=== PATIENT | male | born 1965 | race Caucasian/White ===

== ENCOUNTER 2016-08-31 12:44 | Inpatient (IN) | payer OTHER ==
[~2016-08-31] VITALS: Ht 180.3 cm; Wt 79.5 kg
[2016-08-31] VITALS (8 sets, daily range): BP systolic 124–134; BP diastolic 73–87; PULSE 96–124; RESP 16; TEMP 99.2–99.6; O2SAT 98–100
[~2016-08-31 12:44] MED LIST: ONDANSETRON HCL 4 MG/2 ML VIAL IV PUSH ONE; PHENYLEPH/NS 1000 MCG/10 ML SYR IV ONE; PROPOFOL 200 MG/20 ML AMP IV ONE
[2016-08-31] MEDS ORDERED: SODIUM CHLOR 0.9% 1000 ML INJ 1,000 ML IV SCH (13:08)
[2016-08-31] MEDS ORDERED: SODIUM CHLORIDE 0.9% FLUSH 5 ML FLUSH IVF PRN (13:15)
[2016-08-31] MEDS ORDERED: VANCOMYCIN INJ 1,000 MG in SODIUM CHLOR 0.9% 250 ML INJ 250 ML IV ONE (13:15)
[2016-08-31] MEDS ORDERED: SODIUM CHLOR 0.9% 1000 ML INJ 1,000 ML IV ONE ×2 (13:15→14:15)
[2016-08-31] MEDS ORDERED: PIPERACIL-TAZO 4.5 GM PREMIX 100 ML IV ONE (13:15)
[2016-08-31] MEDS ORDERED: ONDANSETRON HCL 4 MG/2 ML VIAL IVP ONE (13:15)
[2016-08-31 13:28] LABS: AUTOMATED NEUTROPHIL # 25.1 TH/MM3 (1.8-7.7); BASOPHIL # 0.1 TH/MM3 (0-0.2); BASOPHIL % 0.4 % (0.0-2.0); HEMATOCRIT 33.4 % (39.0-51.0); LYMPH % 1.8 % (9.0-44.0); LYMPHOCYTE # 0.5 TH/MM3 (1.0-4.8); MEAN CELL VOLUME 91.4 FL (80.0-100.0); MEAN CORPUSCULAR HEMOGLOBIN 30.5 PG (27.0-34.0); MEAN CORPUSCULAR HGB CONC 33.4 % (32.0-36.0); MONO % 6.4 % (0.0-8.0); NEUT % 91.4 % (16.0-70.0); PLATELET COUNT 223 TH/MM3 (150-450); RED BLOOD COUNT 3.66 MIL/MM3 (4.50-5.90); RED CELL DISTRIBUTION WIDTH 11.5 % (11.6-17.2); WHITE BLOOD COUNT 27.5 TH/MM3 (4.0-11.0)
[2016-08-31 13:29] LABS: BLOOD, URINE TRACE (NEG); KETONE, URINE NEG (NEG); NITRITE,URINE NEG (NEG); PH, URINE 5.5 (5.0-8.5)
--- NOTE | 2016-08-31 13:29 | PD ---
HPI Chief Complaint: Complaint Time Seen by Provider: 13:00 Travel History International Travel<30 days: No Contact w/Intl Traveler<30days: No Traveled to known affect area: No History of Present Illness HPI The patient is a 51-year-old male who presents to the emergency department for nausea, vomiting, and generalized weakness. The patient states his symptoms started on with generalized body aches, nausea, and vomiting. The patient then developed scrotal pain yesterday with swelling of the scrotum and tenderness underlying the scrotum. The patient does complain of subjective fevers with intermittent chills and sweats. The patient states he 's had a decreased appetite over the last several days secondary to his persistent nausea and vomiting. The patient does note a previous history of right inguinal herniorrhaphy, however, denies other abdominal surgeries. The patient denies any history of diabetes. Symptoms are moderate, there are no current alleviating or exacerbating factors. The patient denies any company dysuria, frequency, or urgency. However, he does complain of dark-colored urine. The patient's primary physician is Dr. Hartmann. [facility] Past Medical History Medical History: Denies Significant Hx Past Surgical History Narrative Surgical Right herniorrhaphy Social History Tobacco Use: No (quit 3 weeks ago) Allergies-Medications (Allergen,Severity, Reaction): Coded Allergies: No Known Allergies (Unverified , 08/31/16) Review of Systems Except as stated in HPI: all other systems reviewed are Neg General / Constitutional: Positive: Fever, Chills Respiratory: Positive: Cough Gastrointestinal: Positive: Nausea, Vomiting, Abdominal Pain Genitourinary: Positive: Other (dark-colored urine, scrotal pain 2 days), No : Urgency, Frequency, Dysuria Musculoskeletal: Positive: Weakness Skin: Positive Other (scrotal swelling) Neurologic: Positive: Weakness Physical Exam Narrative GENERAL: Awake, alert, 51-year-old male appears his stated age and mildly toxic. SKIN: Warm and dry. HEAD: Atraumatic. Normocephalic. EYES: Pupils equal and round. No scleral icterus. No injection or drainage. ENT: No nasal bleeding or discharge. Dry mucous membranes. NECK: Trachea midline. No JVD. CARDIOVASCULAR: Regular, tachycardic with a heart rate of 115. RESPIRATORY: No accessory muscle use. Clear to auscultation. Breath sounds equal bilaterally. GASTROINTESTINAL: Abdomen soft, well-healed scar right inguinal canal. No guarding. Genitourinary: Uncircumcised phallus, no drainage at the meatus. Scrotum is edematous with erythema and violaceous-colored lesions over the inferior aspect of the scrotum extending into the perineum with significant tenderness, questionable crepitus. MUSCULOSKELETAL: No obvious deformities. No clubbing. No cyanosis. No edema. NEUROLOGICAL: Awake and alert. No obvious cranial nerve deficits. Motor grossly within normal limits. Normal speech. PSYCHIATRIC: Appropriate mood and affect; insight and judgment normal. Data Data Last Documented VS Vital Signs Date Time Temp Pulse Resp B/P Pulse Ox O2 Delivery O2 Flow Rate FiO2 08/31/16 13:00 119 16 08/31/16 13:00 98 Room Air 08/31/16 12:45 99.6 124/73 Orders Complete Blood Count With Diff (08/31/16 13:08) Comprehensive Metabolic Panel (08/31/16 13:08) Lactic Acid (08/31/16 13:08) Prothrombin Time / Inr (Pt) (08/31/16 13:08) Act Partial Throm Time (Ptt) (08/31/16 13:08) Urinalysis - C+S If Indicated (08/31/16 13:08) Ct Abd/Pel W Iv Contrast(Rout) (08/31/16 13:08) Iv Access Insert/Monitor (08/31/16 13:08) Ecg Monitoring (08/31/16 13:08) Oximetry (08/31/16 13:08) Ondansetron Inj (Zofran Inj) (08/31/16 13:15) Sodium Chlor 0.9% 1000 Ml Inj (Ns 1000 M (08/31/16 13:08) Sodium Chloride 0.9% Flush (Ns Flush) (08/31/16 13:15) Electrocardiogram (08/31/16 13:08) Sodium Chlor 0.9% 1000 Ml Inj (Ns 1000 M (08/31/16 13:15) Piperacil-Tazo 4.5 Gm Premix (Zosyn 4.5 (08/31/16 13:15) Vancomycin Inj (Vancomycin Inj) (08/31/16 13:15) Creatine Kinase (Cpk) (08/31/16 13:08) Blood Culture (08/31/16 13:23) Iohexol 350 Inj (Omnipaque 350 Inj) (08/31/16 13:47) Ns (Bolus) Inj (08/31/16 14:15) Labs Laboratory Tests Test 08/31/16 08/31/16 13:15 13:20 White Blood Count 27.5 TH/MM3 Red Blood Count 3.66 MIL/MM3 Hemoglobin 11.1 GM/DL Hematocrit 33.4 % Mean Corpuscular Volume 91.4 FL Mean Corpuscular Hemoglobin 30.5 PG Mean Corpuscular Hemoglobin 33.4 % Concent Red Cell Distribution Width 11.5 % Platelet Count 223 TH/MM3 Mean Platelet Volume 8.3 FL Neutrophils (%) (Auto) 91.4 % Lymphocytes (%) (Auto) 1.8 % Monocytes (%) (Auto) 6.4 % Eosinophils (%) (Auto) 0.0 % Basophils (%) (Auto) 0.4 % Neutrophils # (Auto) 25.1 TH/MM3 Lymphocytes # (Auto) 0.5 TH/MM3 Monocytes # (Auto) 1.8 TH/MM3 Eosinophils # (Auto) 0.0 TH/MM3 Basophils # (Auto) 0.1 TH/MM3 CBC Comment DIFF FINAL Differential Comment Prothrombin Time 11.4 SEC Prothromb Time International 1.0 RATIO Ratio Activated Partial 32.0 SEC Thromboplast Time Sodium Level 133 MEQ/L Potassium Level 3.5 MEQ/L Chloride Level 98 MEQ/L Carbon Dioxide Level 20.5 MEQ/L Anion Gap 15 MEQ/L Blood Urea Nitrogen 20 MG/DL Creatinine 1.70 MG/DL Estimat Glomerular Filtration 43 ML/MIN Rate Random Glucose 474 MG/DL Lactic Acid Level 3.4 mmol/L Calcium Level 8.2 MG/DL Total Bilirubin 2.7 MG/DL Aspartate Amino Transf 5 U/L (AST/SGOT) Alanine Aminotransferase 11 U/L (ALT/SGPT) Alkaline Phosphatase 111 U/L Total Creatine Kinase 24 U/L Total Protein 6.7 GM/DL Albumin 2.4 GM/DL Urine Collection Type CLEAN CATCH Urine Color YELLOW Urine Turbidity CLEAR Urine pH 5.5 Urine Specific [place] 1.032 Urine Protein 100 mg/dL Urine Glucose (UA) 1000 OR GREATER mg/dL Urine Ketones NEG mg/dL Urine Occult Blood TRACE Urine Nitrite NEG Urine Bilirubin NEG Urine Leukocyte Esterase NEG Urine RBC 0-3 /hpf Urine WBC 0-2 /hpf Urine Squamous Epithelial 0-5 /hpf Cells Urine Bacteria FEW /hpf Microscopic Urinalysis Comment CULT NOT INDICATED Urine Collection Time 13:20 [facility] Medical Decision Making Medical Screen Exam Complete: Yes Emergency Medical Condition: Yes Medical Record Reviewed: Yes Interpretation(s) EKG reveals sinus tachycardia with a rate of 114. Q wave noted in lead 3. RSR prime V1. Nonspecific T wave changes. Laboratory Tests Test 08/31/16 08/31/16 13:15 13:20 White Blood Count 27.5 TH/MM3 Red Blood Count 3.66 MIL/MM3 Hemoglobin 11.1 GM/DL Hematocrit 33.4 % Mean Corpuscular Volume 91.4 FL Mean Corpuscular Hemoglobin 30.5 PG Mean Corpuscular Hemoglobin 33.4 % Concent Red Cell Distribution Width 11.5 % Platelet Count 223 TH/MM3 Mean Platelet Volume 8.3 FL Neutrophils (%) (Auto) 91.4 % Lymphocytes (%) (Auto) 1.8 % Monocytes (%) (Auto) 6.4 % Eosinophils (%) (Auto) 0.0 % Basophils (%) (Auto) 0.4 % Neutrophils # (Auto) 25.1 TH/MM3 Lymphocytes # (Auto) 0.5 TH/MM3 Monocytes # (Auto) 1.8 TH/MM3 Eosinophils # (Auto) 0.0 TH/MM3 Basophils # (Auto) 0.1 TH/MM3 CBC Comment DIFF FINAL Differential Comment Prothrombin Time 11.4 SEC Prothromb Time International 1.0 RATIO Ratio Activated Partial 32.0 SEC Thromboplast Time Sodium Level 133 MEQ/L Potassium Level 3.5 MEQ/L Chloride Level 98 MEQ/L Carbon Dioxide Level 20.5 MEQ/L Anion Gap 15 MEQ/L Blood Urea Nitrogen 20 MG/DL Creatinine 1.70 MG/DL Estimat Glomerular Filtration 43 ML/MIN Rate Random Glucose 474 MG/DL Lactic Acid Level 3.4 mmol/L Calcium Level 8.2 MG/DL Total Bilirubin 2.7 MG/DL Aspartate Amino Transf 5 U/L (AST/SGOT) Alanine Aminotransferase 11 U/L (ALT/SGPT) Alkaline Phosphatase 111 U/L Total Creatine Kinase 24 U/L Total Protein 6.7 GM/DL Albumin 2.4 GM/DL Urine Collection Type CLEAN CATCH Urine Color YELLOW Urine Turbidity CLEAR Urine pH 5.5 Urine Specific [place] 1.032 Urine Protein 100 mg/dL Urine Glucose (UA) 1000 OR GREATER mg/dL Urine Ketones NEG mg/dL Urine Occult Blood TRACE Urine Nitrite NEG Urine Bilirubin NEG Urine Leukocyte Esterase NEG Urine RBC 0-3 /hpf Urine WBC 0-2 /hpf Urine Squamous Epithelial 0-5 /hpf Cells Urine Bacteria FEW /hpf Microscopic Urinalysis Comment CULT NOT INDICATED Urine Collection Time 13:20 CT the abdomen and pelvis reveals significant air within the scrotum was soft tissue inflammation skin thickening. Charlie's necrotizing fasciitis can have this appearance. No evidence of bowel or significant inguinal hernia. Differential Diagnosis Differential diagnosis includes necrotizing fasciitis, Charlie's disease, abscess, cellulitis, sepsis, severe sepsis, acute renal failure, dehydration, influenza. Narrative Course IV was established, labs are drawn and sent, and the patient was placed on cardiac telemetry monitoring and continuous pulse oximetry monitoring. Stat CT of the abdomen/pelvis with IV contrast was ordered to evaluate for necrotizing fasciitis/Charlie's disease. Blood cultures and lactic gas were sent to lab and the patient was administered Zosyn and vancomycin. The patient was also administered 2 L of IV fluids. EKG was ordered and interpreted. The patient's CT of the abdomen and pelvis reveals significant air within the scrotum was soft tissue inflammation and skin thickening. Charlie's necrotizing fasciitis can have this appearance. No evidence of bowel or significant inguinal hernia. The patient's white count is elevated greater than 27, lactic acid is elevated at 3.4. I discussed the patient with the on-call urologist who is aware of the patient requests transfer to [facility]. A second call was placed to the urology service and a call was placed to the on-call general surgeon as there is air dissecting of the left inguinal canal. The patient has received 3 L of IV fluids, Zosyn, and vancomycin. A call was placed to the on- call information coder for admission. The patient will need to be transferred to [facility] and admission to [facility]. I discussed the patient with Dr. Ordoñez who agrees with admission to the intensive care unit. Critical Care Narrative Aggregate critical care time was 40 minutes. Time to perform other separately billable procedures was not included in the critical care time. My time did not include minutes spent treating any other patients simultaneously or on activities that did not directly contribute to the patient's treatment. The services I provided to this patient were to treat and/or prevent clinically significant deterioration that could result in: Necrotizing fasciitis, severe sepsis, septic shock, . I provided critical care services requiring my management, as noted below: Chart data review, documentation time, medication orders and management, vital sign assessments/reviewing monitor data, ordering and reviewing lab tests, ordering and interpreting/reviewing x-rays and diagnostic studies, care of the patient and discussion of the patient with the admitting physicians. Sepsis Criteria SIRS Criteria (2 or more): Heart rate over 90, WBC > 69656, < 4000 or > 10% bands Physician Communication Physician Communication I discussed the patient with Dr. Ordoñez who agrees with admission. 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
[2016-08-31 13:32] LABS: HEMO FLAGS DIFF FINAL
[2016-08-31 13:36] LABS: CHLORIDE 98 MEQ/L (98-107); POTASSIUM 3.5 MEQ/L (3.5-5.1); SODIUM (NA) 133 MEQ/L (136-145)
[2016-08-31 13:36] LABS: GLUCOSE,URINE 1000 OR GREATER mg/dL (NEG)
[2016-08-31 13:37] LABS: BACTERIA, URINE FEW /hpf; COMMENT (UR) CULT NOT INDICATED; CULTURE IF INDICATED CULT NOT INDICATED; METHOD OF COLLECTION CLEAN CATCH; RBC, URINE 0-3 /hpf (0-3); SQUAMOUS EPITHELIAL CELL URINE 0-5 /hpf (0-5); URINE COLOR YELLOW (YELLW/STRAW); WBC, URINE 0-2 /hpf (0-5)
[2016-08-31 13:40] LABS: ANION GAP 15 MEQ/L (5-15); BICARBONATE 20.5 MEQ/L (21.0-32.0); PROTHROMBIN TIME - PATIENT 11.4 SEC (9.8-11.6)
[2016-08-31 13:44] LABS: ALT (GPT) 11 U/L (12-78); AST (GOT) 5 U/L (15-37); BLOOD UREA NITROGEN 20 MG/DL (7-18); GLOMERULAR FILTRATION RATE 43 ML/MIN (>89)
[2016-08-31] MEDS ORDERED: IOHEXOL 350 MG/ML 10 ML VIAL (for RAD DIAG) IV ONE (13:47)
[2016-08-31 13:49] LABS: ALKALINE PHOSPHATASE 111 U/L (45-117); TOTAL BILIRUBIN ADULT 2.7 MG/DL (0.2-1.0)
[2016-08-31 13:54] LABS: CREATINE KINASE 24 U/L (39-308)
--- NOTE | 2016-08-31 14:02 | RADHPO ---
EXAM DATE/TIME: 08/31/2016 13:36 [facility] COMPARISON: No previous studies available for comparison. INDICATIONS: Pain. IV CONTRAST: 75 cc Omnipaque 350 (iohexol) IV ORAL CONTRAST: No oral contrast ingested. RADIATION DOSE: 11.88 CTDIvol (mGy) MEDICAL HISTORY: None SURGICAL HISTORY: None. ENCOUNTER: Initial ACUITY: 2 days PAIN SCALE: 6/10 LOCATION: Bilateral lower quadrant TECHNIQUE: Volumetric scanning of the abdomen and pelvis was performed. Using automated exposure control and ad justment of the mA and/or kV according to patient size, radiation dose was kept as low as reasonably achievable to obtain optimal diagnostic quality images. FINDINGS: CT of the abdomen and pelvis demonstrates there is significant air within the scrotum with air dissec ting up the left inguinal canal. There is soft tissue swelling and inflammation of the scrotum with marked skin thickening. Charlie's can have this appearance. I do not see any evidence of significa nt inguinal canal hernia. There is certainly no bowel within the inguinal canals. There is calcified gallstone noted in gallbladder. The liver, spleen, adrenal glands, kidneys and pa ncreas are unremarkable. CONCLUSION: Significant air within the scrotum with soft tissue inflammation and skin thickening. Charlie's nec rotizing fasciitis can have this appearance. I do not see any evidence of bowel or significant ingui nal hernia. Triston Euceda MD on August 31, 2016 at 13:55 Board Certified Radiologist. This report was verified electronically.
[2016-08-31] MEDS ORDERED: POTASSIUM CHLOR 40 MEQ PREMIX 100 ML IV PRN (14:30)
[2016-08-31] MEDS ORDERED: POTASSIUM PHOSPHATE MONOBASIC 500 MG TAB PO PRN (14:30)
[2016-08-31] MEDS ORDERED: MISCELLANEOUS NURSING INFORMATION XX SCH (14:30)
[2016-08-31] MEDS ORDERED: Vancomycin Consult Pharmacy 1 EA OTHER SCH (14:30)
[2016-08-31] MEDS ORDERED: CLINDAMYCIN INJ 900 MG in SODIUM CHLORIDE 0.9% INJ 100 ML IV ONE (14:30)
[2016-08-31] MEDS ORDERED: MAGNESIUM SULFATE INJ 2 GM in SODIUM CHLORIDE 0.9% INJ 96 ML IV PRN (14:30)
[2016-08-31] MEDS ORDERED: SODIUM PHOSPHATE INJ 30 MMOL in SODIUM CHLOR 0.9% 250 ML INJ 240 ML IV PRN (14:30)
[2016-08-31] MEDS ORDERED: MAGNESIUM OXIDE 400 MG TAB PO PRN (14:30)
[2016-08-31] MEDS ORDERED: POTASSIUM CHLOR 20 MEQ PREMIX 100 ML IV PRN ×2 (14:30)
[2016-08-31] MEDS ORDERED: POTASSIUM CL 40 MEQ/30 ML LIQ UDC PO/TUBE PRN ×2 (14:30)
[2016-08-31] MEDS ORDERED: MAGNESIUM SULFATE INJ 4 GM in SODIUM CHLORIDE 0.9% INJ 92 ML IV PRN (14:30)
[2016-08-31] MEDS ORDERED: POTASSIUM PHOSPHATE INJ 30 MMOL in SODIUM CHLOR 0.9% 250 ML INJ 250 ML IV PRN (14:30)
[2016-08-31] MEDS ORDERED: POTASSIUM PHOSPHATE MONOBASIC 500 MG TAB PO/TUBE PRN (14:30)
[2016-08-31] MEDS ORDERED: CHLORHEXIDINE GLUCONATE 2 % 1 PACK (2 CLOTHS) TOP PRN (14:30)
[2016-08-31] MEDS ORDERED: RESP: ALBUTEROL 2.5 MG/IPRATROPIUM 0.5 MG NEB (PRN) INH (14:30)
[2016-08-31] MEDS ORDERED: DEXTROSE 50% IN WATER 50 ML VIAL(D50) IV PUSH PRN (14:30)
[2016-08-31] MEDS ORDERED: HYDROmorphone HCL PF 1 MG/ML VIAL IV PRN (15:00)
[2016-08-31] MEDS: SODIUM CHLORIDE 0.9% FLUSH 5 ML FLUSH IV FLUSH PRN (15:33)
[2016-08-31] MEDS: LACTATED RINGER'S 1000 ML INJ 1,000 ML IV SCH ×2 (15:38→22:28)
[2016-08-31] MEDS: INSULIN NovoLIN REGULAR SUPPLEMENTAL SCALE SQ SCH ×3 (17:14→23:44)
[2016-08-31] MEDS: PIPERACIL-TAZO 4.5 GM PREMIX 100 ML IV SCH ×2 (17:14→23:44)
[2016-08-31] MEDS ORDERED: MIDAZOLAM HCL 2 MG/2 ML VIAL IV PUSH ONE (17:15)
[2016-08-31] MEDS ORDERED: MIDAZOLAM HCL 5 MG/ML VIAL (1 ML) ONE (17:17)
--- NOTE | 2016-08-31 17:20 | HHI.HP ---
HPI Service Critical Care Medicine Primary Care Physician Non-Staff Admission Diagnosis Charlie's necrotizing fasciitis, sepsis Diagnosis: Chief Complaint: groin swelling Travel History International Travel<30 Days: No Contact w/Intl Traveler <30 Da: No Traveled to Known Affected Are: No History of Present Illness This is a 51-year-old male with an unremarkable past medical history who presents with a three-day of flulike symptoms and scrotal swelling who presented to the emergency department at [facility] today. He states it is painful and red. He has not had anything draining from it. In the emergency department they did a CT abdomen and pelvis with IV contrast which demonstrated significant soft tissue infection tracking up the inguinal canal, concern for necrotizing soft tissue infection. He was tachycardic and hypotensive initially requiring IV fluid resuscitation. He was given vancomycin, Zosyn, clindamycin. Urology and general surgery consult addition he is emergently transferred to [facility] for operative debridement of probable Charlie's gangrene. When I evaluated the patient he states his pain is moderately controlled and 3 out of 10 arrest with 8 of 10 with activity. He denies chest pain shortness of breath. He has been nothing by mouth for greater than 24 hours. He has no history of problems under anesthesia. He endorses poor dentition, but states that none of these teeth are loose. He can walk up 2 flights of stairs without being winded. Review of Systems Constitutional: COMPLAINS OF: Fever, Chills, DENIES: Diaphoretic episodes, Fatigue Respiratory: DENIES: Cough, Sputum production, Shortness of breath Cardiovascular: DENIES: Chest pain, Syncope, Dyspnea on Exertion, Lower Extremity Edema Gastrointestinal: DENIES: Abdominal pain, Constipation, Diarrhea, Nausea, Vomiting Neurologic: DENIES: Headache Past Family Social History Allergies: Coded Allergies: No Known Allergies (Unverified , 08/31/16) Past Medical History Patient has no reported past medical history. Past Surgical History Hernia operation a few years ago Reported Medications Recent intermittent ibuprofen use for his scrotal pain. Otherwise the patient takes no medication. Active Ordered Medications See MAR Family History Mother had diabetes Social History Quit smoking 3 weeks ago, one drink per week, denies drug abuse Physical Exam Vital Signs Vital Signs Date Time Temp Pulse Resp B/P Pulse Ox O2 Delivery O2 Flow Rate FiO2 08/31/16 16:01 107 16 127/77 100 08/31/16 15:00 106 16 134/80 100 Room Air 08/31/16 14:09 108 16 132/87 100 Room Air 08/31/16 14:00 108 16 08/31/16 13:00 99.2 114 16 124/75 98 Room Air 08/31/16 13:00 119 16 08/31/16 13:00 16 98 Room Air 08/31/16 12:45 99.6 124 16 124/73 99 Physical Exam GENERAL: Middle-aged male, lying in bed HEENT: Normocephalic. Atraumatic. Pupils equal, reactive, round, conjugate. Mucous membranes are dry NECK:. Trachea is midline. There is no JVD. CHEST: Equal chest rise. Clear to auscultation. SPO2 91% on room air. CARDIOVASCULAR: Tachycardic rate, regular rhythm. No appreciable murmurs. ABDOMEN: Soft, nontender, nondistended. No guarding. : significant scrotal edema with erythema, very tender to palpation, indurated. MUSCULOSKELETAL: no peripheral edema. distal pulses 2+ NEUROLOGICAL: RASS 0. no gross focal motor or sensory deficits Laboratory Laboratory Tests Test 08/31/16 08/31/16 13:15 13:20 White Blood Count 27.5 Red Blood Count 3.66 Hemoglobin 11.1 Hematocrit 33.4 Mean Corpuscular Volume 91.4 Mean Corpuscular Hemoglobin 30.5 Mean Corpuscular Hemoglobin 33.4 Concent Red Cell Distribution Width 11.5 Platelet Count 223 Mean Platelet Volume 8.3 Neutrophils (%) (Auto) 91.4 Lymphocytes (%) (Auto) 1.8 Monocytes (%) (Auto) 6.4 Eosinophils (%) (Auto) 0.0 Basophils (%) (Auto) 0.4 Neutrophils # (Auto) 25.1 Lymphocytes # (Auto) 0.5 Monocytes # (Auto) 1.8 Eosinophils # (Auto) 0.0 Basophils # (Auto) 0.1 CBC Comment DIFF FINAL Differential Comment Prothrombin Time 11.4 Prothromb Time International 1.0 Ratio Activated Partial 32.0 Thromboplast Time Sodium Level 133 Potassium Level 3.5 Chloride Level 98 Carbon Dioxide Level 20.5 Anion Gap 15 Blood Urea Nitrogen 20 Creatinine 1.70 Estimat Glomerular Filtration 43 Rate Random Glucose 474 Lactic Acid Level 3.4 Calcium Level 8.2 Total Bilirubin 2.7 Aspartate Amino Transf 5 (AST/SGOT) Alanine Aminotransferase 11 (ALT/SGPT) Alkaline Phosphatase 111 Total Creatine Kinase 24 Total Protein 6.7 Albumin 2.4 Urine Collection Type CLEAN CATCH Urine Color YELLOW Urine Turbidity CLEAR Urine pH 5.5 Urine Specific [place] 1.032 Urine Protein 100 Urine Glucose (UA) 1000 OR GREATER Urine Ketones NEG Urine Occult Blood TRACE Urine Nitrite NEG Urine Bilirubin NEG Urine Leukocyte Esterase NEG Urine RBC 0-3 Urine WBC 0-2 Urine Squamous Epithelial 0-5 Cells Urine Bacteria FEW Microscopic Urinalysis Comment CULT NOT INDICATED Urine Collection Time 13:20 Date/Time Procedure Status Source Growth 08/31/16 13:15 Aerobic Blood Culture Received Blood Peripheral Pending 08/31/16 13:15 Anaerobic Blood Culture Received Blood Peripheral Pending Result Diagram: 08/31/16 1315 08/31/16 1315 Imaging Last 24 hours Impressions Abdomen/Pelvis CT 08/31/16 1308 Signed Impressions: Service Date/Time: Wednesday, August 31, 2016 13:36 - CONCLUSION: Significant air within the scrotum with soft tissue inflammation and skin thickening. Charlie's necrotizing fasciitis can have this appearance. I do not see any evidence of bowel or significant inguinal hernia. Triston Euceda MD Assessment and Plan Assessment and Plan Assessment: This is a 51-year-old male with likely Charlie's gangrene and probably new diagnosis of diabetes, who presents in severe sepsis. He will go for operative debridement of his groin. He is likely to become much more critically ill than he already is after the operation, and will thus require arterial and central venous access to safely manage him. Plan by systems: Neurologic: Acute groin pain Dilaudid as needed for pain Respiratory: Atelectasis Wean oxygen by nasal cannula for goal SPO2 greater than 90% May remain intubated after the OR depending on his hemodynamics Incentive spirometer to bedside Head of bed at 30 Cardiovascular: Severe sepsis Continue IV fluids LR at 150cc/hr Renal: Acute kidney injury Charlie's Gangrene --likely prerenal from sepsis --ivf as above. -- will hold off on placing blankenship catheter, will need one, but will have urology place this during operative intervention -- Strict I/Os --consult Urology FEN/GI: Nothing by mouth for pending operation ICU electrolyte protocol Daily BMP Heme/ID: Charlie's Gangrene --daily CBC --Vanc with pharmacy dosing --Zosyn 4.5gm iv q6h --Clindamycin for toxin production -- ID consult --type and screen for OR Endocrine: Diabetes -- SSI, high scale, q4h --Hgb A1C Prophylaxis: GI Prophylaxis Protonix 40 mg IV every 24 hours DVT Prophylaxis -- SCDs Holding pharmacologic DVT prophylaxis in the setting of pending operation. We' ll plan to restart postop Lines: We'll place arterial line We'll place central line Dispo: Admit to the ICU. He is going to remain critically ill for some time. Code Status Full Code Ruddy Herbert MD Aug 31, 2016 17:20
[2016-08-31] MEDS ORDERED: NOREPINEPHRINE-DEXTROSE DRIP 250 ML IV ONE (18:15)
--- NOTE | 2016-08-31 18:35 | PD.PROCEDR ---
Procedure Note Procedure Procedure: Arterial Line Placement Left radial arterial line Diagnosis:Charlie's gangrene Indications: Need for beat to beat hemodynamic monitoring Consent: Written consent was obtained Description of the Procedure: The left wrist was prepped and draped sterilely. 1% lidocaine was used for local anesthesia. The pulse was located and a needle was advanced into the artery. A 20 gauge, 12 cm catheter was advanced into the artery using a modified Seldinger technique. The catheter was sutured to the skin and a sterile dressing was applied. The catheter was connected to a pressure transducer and an arterial waveform was noted. There were no immediate complications noted. There was minimal EBL. I personally performed the procedure. Ruddy Herbert MD Aug 31, 2016 18:35
--- NOTE | 2016-08-31 18:37 | PD.PROCEDR ---
Procedure Note Procedure Central Line Procedure Note Left IJ triple-lumen catheter Diagnosis: Charlie's gangrene Indications: Need for highly potent vasoactive substances Consent: Written consent was obtained Anesthesia: Versed 2 mg IV, fentanyl 50 g IV Description of the Procedure: The patient was placed in the supine, mild- Trendelenburg position. The area was prepped and draped sterilely. A 19g needle was inserted under negative pressure aspiration and dark venous blood was obtained. A guidewire was inserted easily without resistance. A small incision was made using a #11 blade. Using a modified Seldinger technique, the dilator and 7 Swedish, 20 cm catheter were advanced over the guidewire without resistance. All ports were aspirated and flushed, and had brisk blood return. The line was secured at 20 cm at the skin using 2-0 silk interrupted sutures. A Biopatch and Transparent sterile dressing were applied. There were no immediate complications noted. There was minimal EBL. The patient tolerated the procedure well. Ultrasound Guidance: Ultrasound guidance was used to identify the left internal jugular vein. The vascular anatomy of the left anterior neck was normal. The vessel was cannulated under direct, real-time ultrasound visualization. After placement of the guidewire, confirmation of the guidewire in the lumen of the vessel was made using ultrasound visualization, before dilation of the tract. A Chest x-ray has been ordered. I personally performed the procedure. Ruddy Herbert MD Aug 31, 2016 18:36
--- NOTE | 2016-08-31 18:58 | RADRPT ---
EXAM DATE/TIME: 08/31/2016 18:32 [facility] COMPARISON: No previous studies available for comparison. INDICATIONS : Central Line Placement MEDICAL HISTORY : None. SURGICAL HISTORY : None. ENCOUNTER: Subsequent ACUITY: 1 day PAIN SCORE: 0/10 LOCATION: Bilateral chest FINDINGS: A left internal jugular central venous catheter has been inserted and is in appropriate position. The re is no evidence of pneumothorax or acute airspace disease. The cardiomediastinal contours are unre markable. Osseous structures are intact. CONCLUSION: Left internal jugular central venous catheter in good position. No evidence of pneumothorax. Felix Caballero MD on August 31, 2016 at 18:56 Board Certified Radiologist. This report was verified electronically.
[2016-08-31] MEDS ORDERED: EPINEPHrine HCL (1:10,000) 1 MG/10 ML SYRINGE ONE (19:02)
[2016-08-31] MEDS ORDERED: LIDOCAINE HCL 2% 100 MG/5 ML SYRINGE ONE (19:02)
[2016-08-31] MEDS ORDERED: ATROPINE SULFATE 1 MG/10 ML SYRINGE ONE (19:02)
--- NOTE | 2016-08-31 20:08 | MB ---
cc: FUNMILAYO CORTES MD DATE OF SERVICE 08/31/2016 REASON FOR CONSULTATION 1. Charlie's gangrene. 2. Sepsis. HISTORY OF PRESENT ILLNESS The patient is a 51-year-old male who presented to the [facility] earlier today with a painful red scrotum with swelling for the past 3 days. It began approximately 3 days ago when he started to have some flu-like symptoms with malaise, general fatigue and upset stomach. He noticed his scrotum started to become swollen, red and painful to the point where the pain was a 10/10 and felt like a sharp stabbing pain in the bottom of his scrotum. He denies prior episodes. He denies any penile discharge or drainage from his scrotum. Once he got to the ER he was found to have a white count of 27,000 and to be acidotic. He is slightly tachycardic with a low grade fever as well. He did feel like he was having night sweats and fevers and chills at home. A CT abdomen and pelvis without contrast was then done which showed significant air in his scrotum and possibly extending up to his left inguinal region consistent with a Charlie's gangrene or necrotizing fasciitis. Urology was consulted for further evaluation. In the ER he was given vancomycin, Zosyn and clindamycin. He is also found to have a blood sugar of over 400. He denies any previous history of diabetes at the past. Denies any urinary issues as well. He says he has a strong stream, does not get up at night. He also denies dysuria, incontinence, urgency, frequency or hematuria. Denies history of kidney stones and any family history of prostate cancer. He denies flank pain, abdominal pain at this time. His pain has been controlled since receiving Dilaudid. He subsequently was transferred up to [facility] in preparation for emergent surgery. ALLERGIES NO KNOWN DRUG ALLERGIES. PAST MEDICAL HISTORY Denies any significant past medical history. PAST SURGICAL HISTORY He is status post inguinal hernia repair. HOME MEDICATIONS Ibuprofen for his scrotal pain. FAMILY HISTORY Negative for urolithiasis, negative for genitourinary malignancies. SOCIAL HISTORY Quit smoking 3 weeks ago. Denies drug abuse and has about a drink per week. REVIEW OF SYSTEMS See HPI, otherwise, a 12-point review of systems was performed, otherwise negative. PHYSICAL EXAMINATION VITAL SIGNS: His temperature was 99.2, pulse 107, BP 127/77, pulse ox 90% on 3 liters. GENERAL: In general he is alert and oriented x3. No apparent distress, pleasant, cooperative gentleman appears his stated age. HEAD: Normocephalic, atraumatic. Neck is supple. Trachea is midline. No JVD. Eyes: No scleral icterus. Extraocular muscles intact. LUNGS: Clear to auscultation bilaterally. No wheezes, rales or rhonchi. HEART: Regular rate and rhythm. No murmurs, gallops or rubs. ABDOMEN: Soft but obese, nontender, nondistended. Positive bowel sounds. No peritoneal signs. No CVA tenderness bilaterally. GENITOURINARY EXAMINATION: The penis is circumcised. His scrotum is diffusely edematous with some erythema and crepitus in the posterior portion of the scrotum. There is 3 quarter sized like necrotic areas on his scrotum consistent with necrotizing fasciitis as well as a very foul odor. RECTAL: Deferred at this time. EXTREMITIES: Nontender, no clubbing, cyanosis or edema. MUSCULOSKELETAL: Full range of motion in all four extremities. Strength 5/5. PSYCH: Normal affect. LABORATORY DATA Labs show a white count 27.5, hemoglobin 11.1, hematocrit 33.4, platelet count 223, sodium 133, potassium 3.5, chloride 98, bicarb 20.5, BUN 20, creatinine 1.70, random glucose 474, lactic acid 3.4. His urine shows greater than 1000 glucose but otherwise negative nitrate, negative leukocyte esterase with a urine pH of 5.5. IMAGING STUDIES CT of abdomen and pelvis with IV contrast images reviewed, agree with radiologist's report. He does have significant air within the scrotum which appears to be ____ with continued soft tissue swelling, inflammation of the scrotum with marked significant thickening consistent with Charlie's gangrene. ASSESSMENT/PLAN The patient is a 51-year-old male with newly diagnosed diabetes who presents with scrotal pain, swelling and redness for the last few days and was found to have necrotizing fasciitis. The plan, will keep the patient n.p.o. Will continue IV antibiotics and consult infectious disease. Will take him to the OR emergently this evening for a debridement of his scrotum. I discussed the risks, benefits, alternatives with the patient of the procedure including the risk of repeat debridement in the next 48 hours as well as the chances of him becoming ___ septic after the procedure as well as the anesthesia risks. He understood all these risks. All questions were answered. Informed consent was obtained. Funmilayo Cortes MD EMYoselin/GÉNESIS /7:21 PM /7:43 PM
[2016-08-31] MEDS ORDERED: fentaNYL CITRATE 250 MCG/5 ML AMP ONE (20:26)
[2016-08-31] MEDS: SODIUM CHLORIDE 0.9% FLUSH 5 ML FLUSH IV FLUSH SCH (21:00)
[2016-08-31] MEDS: DOCUSATE SODIUM 50 MG/SENNA 8.6 MG TAB PO SCH (21:00)
[2016-08-31] MEDS ORDERED: NALOXONE HCL 0.4 MG/ML AMP IV PRN (22:15)
[2016-08-31] MEDS ORDERED: MORPHINE SULFATE 30 MG/30 ML PCA IV SCH ×2 (22:15)
[2016-08-31] MEDS: CLINDAMYCIN INJ 900 MG in SODIUM CHLORIDE 0.9% INJ 100 ML IV SCH (22:28)
[2016-08-31] MEDS ORDERED: DO NOT ADM ANY ANTICOAGULANT DRUGS XX PRN (22:30)
[2016-09-01] VITALS (11 sets, daily range): BP systolic 93–144; BP diastolic 50–73; PULSE 85–110; RESP 14–24; TEMP 97.4–98.6; O2SAT 97–100
[2016-09-01] MEDS ORDERED: SODIUM CHLOR 0.9% 1000 ML INJ 1,000 ML IV ONE ×2 (01:45)
[2016-09-01] MEDS: DOBUTamine PREMIX DRIP 250 ML IV SCH ×2 (02:14→21:18)
[2016-09-01] MEDS ORDERED: NOREPINEPHRINE 4 MG/D5W 250 ML IV SCH (02:15)
[2016-09-01] MEDS: SODIUM CHLOR 0.9% 1000 ML INJ 1,000 ML IV SCH ×2 (02:15→03:16)
[2016-09-01] MEDS ORDERED: VANCOMYCIN INJ 750 MG in SODIUM CHLOR 0.9% 250 ML INJ 250 ML IV SCH (03:00)
[2016-09-01] MEDS ORDERED: SODIUM CHLOR 0.9% 1000 ML INJ 1,999 ML IV ONE ×4 (03:45→04:00)
[2016-09-01 03:57] LABS: HEMATOCRIT 22.4 % (39.0-51.0); MEAN CELL VOLUME 92.4 FL (80.0-100.0); MEAN CORPUSCULAR HEMOGLOBIN 31.8 PG (27.0-34.0); MEAN CORPUSCULAR HGB CONC 34.5 % (32.0-36.0); PLATELET COUNT 162 TH/MM3 (150-450); RED BLOOD COUNT 2.43 MIL/MM3 (4.50-5.90); RED CELL DISTRIBUTION WIDTH 12.5 % (11.6-17.2); REVIEW FLAG FINAL; WHITE BLOOD COUNT 20.2 TH/MM3 (4.0-11.0)
[2016-09-01] MEDS: INSULIN NovoLIN REGULAR SUPPLEMENTAL SCALE SQ SCH ×5 (04:00→20:00)
[2016-09-01 04:16] LABS: BICARBONATE 20.6 MEQ/L (21.0-32.0); POTASSIUM 3.3 MEQ/L (3.5-5.1)
[2016-09-01 04:32] LABS: CALCIUM-PROTEIN CORRECTED 8.4 MG/DL (8.5-10.1)
[2016-09-01] MEDS: LACTATED RINGER'S 1000 ML INJ 1,000 ML IV SCH ×4 (04:36→22:39)
[2016-09-01] MEDS: CHLORHEXIDINE GLUCONATE 2 % 1 PACK (2 CLOTHS) TOP SCH (04:37)
[2016-09-01] MEDS: PCA - TOTAL MG MORPHINE DELIVERED PER SHIFT SCH ×3 (06:00→22:00)
[2016-09-01] MEDS ORDERED: PCA - TOTAL MG MORPHINE DELIVERED PER SHIFT SCH (06:00)
[2016-09-01] MEDS: PIPERACIL-TAZO 4.5 GM PREMIX 100 ML IV SCH ×3 (06:06→20:43)
--- NOTE | 2016-09-01 08:42 | MP ---
cc: FUNMILAYO CORTES MD DATE OF SURGERY 08/30/2016 PREOPERATIVE DIAGNOSIS Charlie's gangrene. POSTOPERATIVE DIAGNOSIS Charlie's gangrene. PROCEDURE PERFORMED 1. Scrotal exploration. 2. I&D of scrotal abscess. 3. Extensive debridement of the scrotal skin. SURGEON MD Manolo ANESTHESIA General. COMPLICATIONS None. DRAINS A 16-Yemeni Galdamez catheter to gravity drainage. SPECIMENS None. BLOOD LOSS Minimal. DISPOSITION Stable to recovery. INDICATIONS The patient is a 51-year-old male who presented with a three day history of scrotal pain, swelling and erythema. The patient has CT of the abdomen and pelvis with contrast done and was found to have significant amount of air in his scrotum extending possibly up to his left inguinal region consistent with necrotizing fasciitis. His white count was 27,000 and had a lactic acid of 3.4. Due to these findings, he was then set up for emergent debridement in the OR. After the risks, benefits and alternatives were explained, the patient wanted to proceed, therefore consent was obtained. DETAILS OF PROCEDURE The patient was properly identified, brought back to the operating room. He was placed supine on the operating table. Proper time-out was performed under the direction of Anesthesiology. The patient was then intubated, induced under general aesthetic. The patient had received vancomycin, Zosyn and clindamycin previously and therefore preoperative antibiotics were not indicated. He was then prepped and draped in normal sterile surgical fashion. A 16-Yemeni Galdamez catheter was then placed under sterile technique. Approximately 1 liter of urine returned. An 11-blade scalpel was then used to make a horizontal midline incision just to the right of his medial raphe, all the way posteriorly. Significant amount of pus was then drained. On careful examination, he had several necrotic areas superficially which were excised with an 11 blade scalpel, a significant amount of edema and , necrotic skin subcutaneously consistent with necrotizing fasciitis. I then debrided extensively his entire posterior portion of the scrotum, extending down close to his rectum until healthy tissue was seen. I did come across the source of a foul-smelling, near perirectal abscess. This was carefully drained which could be the source of the infection. His scrotum was then totally debrided until all necrotic visible tissue was removed. The remaining tissue did appear healthy as this time. The area was irrigated with 3 liters of saline with Pulsavac. Hemostasis was adequate. At this time the wound was then dressed with wet-to-dry dressings following ABDs. A CYNTHIA was performed at the end of the procedure. His prostate gland was approximately 40 grams, smooth and no nodules. His rectum was intact. The patient was extubated and sent to Recovery in stable condition. He will then remain in the ICU for close observation. He may need subsequent procedure in the 24-48 hours. MD ARELI Doshi/JOSH /9:12 PM /8:25 AM ASMITA
[2016-09-01] MEDS: DOCUSATE SODIUM 50 MG/SENNA 8.6 MG TAB PO SCH ×2 (08:46→21:00)
[2016-09-01] MEDS: TAMSULOSIN HCL 0.4 MG CAP PO SCH (08:46)
[2016-09-01] MEDS: CLINDAMYCIN INJ 900 MG in SODIUM CHLORIDE 0.9% INJ 100 ML IV SCH ×3 (08:46→22:39)
[2016-09-01] MEDS ORDERED: PANTOPRAZOLE SODIUM 40 MG VIAL IV SCH (09:00)
[2016-09-01] MEDS: SODIUM CHLORIDE 0.9% FLUSH 5 ML FLUSH IV FLUSH SCH ×2 (09:17→21:00)
[2016-09-01] MEDS ORDERED: INFLUENZA VIRUS VACCINE (QUADRIVALENT) 0.5 ML SYR IM ONE (10:00)
--- NOTE | 2016-09-01 11:24 | EKG ---
Date Performed: 08/31/2016 Time Performed: 13:17:54 PTAGE: 51 years EKG: Sinus tachycardia rSr'(V1) - probable normal variant Anteroseptal T wave changes are nonspe cific Borderline ECG NO PREVIOUS TRACING DOCTOR: Triston Thapa Interpretating Date/Time 09/01/2016 11:22:47
--- NOTE | 2016-09-01 11:31 | HHI.CCPN ---
Subjective Remarks/Hospital Course Hospital Course: This is a 51-year-old male with an unremarkable past medical history who presents with a three-day of flulike symptoms and scrotal swelling who presented to the emergency department at [place] today. He states it is painful and red. He has not had anything draining from it. In the emergency department they did a CT abdomen and pelvis with IV contrast which demonstrated significant soft tissue infection tracking up the inguinal canal, concern for necrotizing soft tissue infection. He was tachycardic and hypotensive initially requiring IV fluid resuscitation. He was given vancomycin, Zosyn, clindamycin. Urology and general surgery consult addition he is emergently transferred to [facility] for operative debridement of probable Charlie's gangrene. When I evaluated the patient he states his pain is moderately controlled and 3 out of 10 arrest with 8 of 10 with activity. He denies chest pain shortness of breath. He has been nothing by mouth for greater than 24 hours. He has no history of problems under anesthesia. He endorses poor dentition, but states that none of these teeth are loose. He can walk up 2 flights of stairs without being winded. Subjective: 09/01: debrided yesterday. overnight, slightly hypotensive. dobutamine added to improve cardiac output. this morning pulse contour analysis demonstrates CO 10 LPM. SVV 17%. extubated on room air. Objective Vital Signs Date Time Temp Pulse Resp B/P Pulse Ox O2 Delivery O2 Flow Rate FiO2 09/01/16 10:00 21 09/01/16 07:00 97 Nasal Cannula 2.00 09/01/16 07:00 110 09/01/16 04:00 98.2 14 144/73 Intake and Output 08/31/16 08/31/16 09/01/16 08:00 16:00 00:00 Intake Total 1100 ml 3834 ml Output Total 100 ml Balance 1100 ml 3734 ml Result Diagram: 09/01/16 0330 09/01/16 0330 Imaging Last 24 hours Impressions Abdomen/Pelvis CT 08/31/16 1308 Signed Impressions: Service Date/Time: Wednesday, August 31, 2016 13:36 - CONCLUSION: Significant air within the scrotum with soft tissue inflammation and skin thickening. Charlie's necrotizing fasciitis can have this appearance. I do not see any evidence of bowel or significant inguinal hernia. Triston Euceda MD Objective Remarks GENERAL: Middle-aged male, lying in bed HEENT: Normocephalic. Atraumatic. Pupils equal, reactive, round, conjugate. Mucous membranes are moist NECK:. Trachea is midline. There is no JVD. left IJ TLC site clean, dry, dressing intact. CHEST: Equal chest rise. Clear to auscultation. SPO2 94% on room air. CARDIOVASCULAR: Tachycardic rate, regular rhythm. No appreciable murmurs. ABDOMEN: Soft, nontender, nondistended. No guarding. : groin packed, dressing with minimal blood. blankenship with yellow urine. MUSCULOSKELETAL: no peripheral edema. distal pulses 2+. left radial art line, dressing intact. NEUROLOGICAL: RASS 0. no gross focal motor or sensory deficits A/P Assessment and Plan Assessment: This is a 51-year-old male with Charlie's necrotizing fasciitis and newly diagnosed diabetes, who presented in severe sepsis. He is now post op day 1 from debridement. SIRS continues, which is expected, though clinically slightly improving. May need ongoing debridements. We will wean the dobutamine and may require low-dose norepinephrine to maintain end-organ perfusion. Plan by systems: Neurologic: Acute groin pain Dilaudid as needed for pain -- morphine CAMP COORDINATOR Respiratory: Atelectasis Wean oxygen by nasal cannula for goal SPO2 greater than 90% Incentive spirometer to bedside Head of bed at 30 --OOB to chair Cardiovascular: Severe sepsis Continue IV fluids LR at 50cc/hr -- will give 1L LR bolus x 1 now. -- wean dobutamine to off. -- use norepinephrine for goal map > 65 mmHg. Renal: Acute kidney injury- resolving. Charlie's Necrotizing Fasciitis --likely prerenal from sepsis --ivf as above. -- Blankenship catheter for accurate I/Os. -- Strict I/Os --consult Urology FEN/GI: Hypokalemia Hypocalcemia Nursing bedside swallow eval and advance diet to diabetic diet. ICU electrolyte protocol Daily BMP Heme/ID: Charlie's Gangrene --daily CBC --Vanc with pharmacy dosing --Zosyn 4.5gm iv q6h --Clindamycin for toxin production -- ID consult Endocrine: Diabetes -- SSI, high scale, q4h --Hgb A1C Prophylaxis: GI Prophylaxis d/c protonix, no evidence based indication. tolerating diet. DVT Prophylaxis -- SCDs Restart SQH. Lines: 08/31 left radial arterial line --08/31 left IJ triple lumen catheter -- Blankenship Dispo: Remain in the ICU. Ruddy Herbert MD Sep 01, 2016 11:31
--- NOTE | 2016-09-01 12:15 | PD.ID.CON ---
History of Present Illness Service Infectious disease Consult Requested By Dr. 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 Shirley is a 51-year-old male with no significant past medical history with a 3 day history of flulike symptoms associated with scrotal pain followed by scrotal swelling. Patient reports taking ibuprofen for the scrotal pain and when the pain was unbearable and he started having muscle aches and a feeling of unwellness he decided to present to the emergency department at [place]. He denies any discharge. In the emergency department a CT of the abdomen and pelvis with IV contrast was done which showed soft tissue infection tracking of the inguinal can all concerning for necrotizing soft tissue infection. Patient was noted to be tachycardic and hypotensive and needed IV fluid resuscitation and underwent a sepsis workup. He was treated with vancomycin IV, Zosyn IV and clindamycin. Urology as well as general surgery were consulted and patient was transferred to [facility]. Case was discussed with Dr. fields and I reports intraoperative debridement and findings suggestive of Charlie's gangrene. Pathology specimen has been sent. No microbiology specimens. He denies chest pain shortness of breath. He denies any known sexually transmitted diseases. At the time of my evaluation patient is in the ICU. Patient is currently not on any pressors, on room air with good amount of urination. He has tolerated his IV antibiotics overnight. 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 Review of Systems Constitutional: COMPLAINS OF: Fever, Chills, DENIES: Diaphoretic episodes, Fatigue, Weight gain, Weight loss, Dizziness, Change in appetite, Night Sweats Endocrine: DENIES: Heat/cold intolerance, Polydipsia, Polyuria, Polyphagia Eyes: DENIES: Blurred vision, Diplopia, Eye inflammation, Eye pain, Vision loss , Photosensitivity, Double Vision Ears, nose, mouth, throat: DENIES: Tinnitus, Hearing loss, Vertigo, Nasal discharge, Oral lesions, Throat pain, Hoarseness, Ear Pain, Running Nose, Epistaxis, Sinus Pain, Toothache, Odynophagia Respiratory: DENIES: Apneas, Cough, Snoring, Wheezing, Hemoptysis, Sputum production, Shortness of breath Cardiovascular: DENIES: Chest pain, Palpitations, Syncope, Dyspnea on Exertion , PND, Lower Extremity Edema, Orthopnea, Claudication Gastrointestinal: DENIES: Abdominal pain, Black stools, Bloody stools, Constipation, Diarrhea, Nausea, Vomiting, Difficulty Swallowing, Anorexia Genitourinary: COMPLAINS OF: Testicular Swelling, DENIES: Sexual dysfunction, Urinary frequency, Urinary incontinence, Urgency, Hematuria, Dysuria, Nocturia, Penile Discharge, Testicular Pain Musculoskeletal: COMPLAINS OF: Muscle aches, DENIES: Joint pain, Stiffness, Joint Swelling, Back pain, Neck pain Integumentary: DENIES: Abnormal pigmentation, Nail changes, Pruritus, Rash Hematologic/lymphatic: DENIES: Bruising, Lymphadenopathy Immunologic/allergic: DENIES: Eczema, Urticaria Neurologic: DENIES: Abnormal gait, Headache, Localized weakness, Paresthesias, Seizures, Speech Problems, Tremor, Poor Balance Psychiatric: DENIES: Anxiety, Confusion, Mood changes, Depression, Hallucinations, Agitation, Suicidal Ideation, Homicidal Ideation, Delusions Except as stated in HPI: all other systems reviewed are Neg Past Family Social History Allergies: Coded Allergies: No Known Allergies (Unverified , 08/31/16) Past Medical History No known medical problems. Past Surgical History Hernia operation a few years ago Reported Medications None except recent use of ibuprofen since scrotal pain started on Tuesday. Active Ordered Medications Current Medications Medications (Trade) Dose Ordered Sig/Matt Route Start Time Stop Time Status Last Admin Clindamycin Phosphate 900 mg/ Sodium Chloride 106 ml @ 212 mls/hr Q8H IV 08/31/16 23:00 09/01/16 15:16 Piperacillin Sod/ Tazobactam Sod 100 ml @ 200 mls/hr Q6H IV 08/31/16 18:00 09/01/16 12:38 (Vancomycin Consult Pharmacy) 0 ml @ 0 mls/hr UNSCH OTHER 08/31/16 14:30 Magnesium Oxide 800 mg 800 mg UNSCH PRN PO 08/31/16 14:30 Magnesium Sulfate 4 gm/Sodium Chloride 100 ml @ 50 mls/hr UNSCH PRN IV 08/31/16 14:30 Magnesium Sulfate 2 gm/Sodium Chloride 100 ml @ 50 mls/hr UNSCH PRN IV 08/31/16 14:30 Potassium Chloride 100 ml @ 50 mls/hr Q2H PRN IV 08/31/16 14:30 Potassium Chloride 100 ml @ 50 mls/hr Q2H PRN IV 08/31/16 14:30 Potassium Chloride 100 ml @ 50 mls/hr Q2H PRN IV 08/31/16 14:30 (KCl 40 Meq Premix Inj) 100 ml @ 25 mls/hr UNSCH PRN IV 08/31/16 14:30 09/01/16 06:44 (KCl 40 Meq/30 ml Liq) 40 meq UNSCH PRN PO/TUBE 08/31/16 14:30 (KCl 40 Meq/30 ml Liq) 40 meq UNSCH PRN PO/TUBE 08/31/16 14:30 (K-Phos) 2,000 mg Q4H PRN PO 08/31/16 14:30 Potassium Phosphate 2000 mg 2,000 mg UNSCH PRN PO/TUBE 08/31/16 14:30 Potassium Phosphate 30 mmol/ Sodium Chloride 260 ml @ 42 mls/hr UNSCH PRN IV 08/31/16 14:30 (Sodium Phosphate Inj/NS 250 ml Inj) 250 ml @ 42 mls/hr UNSCH PRN IV 08/31/16 14:30 (D50w (Vial) Inj) 25 ml UNSCH PRN IV PUSH 08/31/16 14:30 (NovoLIN R SUPPLEMENTAL SCALE) 1 Q4HR SQ 08/31/16 16:00 08/31/16 17:14 (NS Flush) 2 ml UNSCH PRN IV FLUSH 08/31/16 14:30 08/31/16 15:33 (NS Flush) 2 ml BID IV FLUSH 08/31/16 21:00 09/01/16 09:17 (Protonix Inj) 40 mg DAILY IV 09/01/16 09:00 09/01/16 08:47 (Zofran Inj) 4 mg Q6H PRN IV 08/31/16 18:00 (Saima-Colace) 2 tab BID PO 08/31/16 21:00 09/01/16 08:46 Miscellaneous Information 1 Q361D XX 08/31/16 14:30 (Chlorhexidine 2% Cloth) 3 pack Taper DAILY@04 TOP 09/01/16 04:00 08/28/17 03:59 09/01/16 04:37 Chlorhexidine Gluconate 3 pack 3 pack UNSCH PRN TOP 08/31/16 14:30 (Lr 1000 ml Inj) 1,000 ml @ 150 mls/hr Q6H40M IV 08/31/16 14:26 09/01/16 18:25 Miscellaneous Information SPECIFIC LAB TO BE DRAWN:VANCOMYCIN TROUGH DATE TO... ONCE ONCE XX 09/02/16 14:45 09/02/16 14:46 (Flomax) 0.4 mg DAILY PO 09/01/16 09:00 09/01/16 08:46 (Morphine 1 Mg/ ml BEEF TAGGER) 30 mg UNSCH IV 08/31/16 22:15 09/01/16 11:28 BEEF TAGGER Dosage Infused (Pha) 1 Q8HR .XX 09/01/16 06:00 09/01/16 14:00 (Narcan Inj) 0.4 mg UNSCH PRN IV 08/31/16 22:15 Miscellaneous Information ALL NURSING DEPARTME... 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 Physical Exam Vital Signs Vital Signs Date Time Temp Pulse Resp B/P Pulse Ox O2 Delivery O2 Flow Rate FiO2 09/01/16 11:28 20 09/01/16 10:00 21 09/01/16 08:00 98.5 110 14 126/67 100 09/01/16 07:00 97 Nasal Cannula 2.00 09/01/16 07:00 110 09/01/16 04:00 98.2 100 14 144/73 100 09/01/16 03:29 100 Nasal Cannula 2.00 09/01/16 00:00 98.4 96 20 94/54 100 Automatic Cuff 08/31/16 23:00 96 08/31/16 22:00 98.8 105 16 109/53 99 Nasal Cannula 2 08/31/16 21:45 107 16 109/66 99 Nasal Cannula 2 109/66 08/31/16 21:30 105 18 105/62 99 Nasal Cannula 2 106/51 08/31/16 21:15 99.7 107 20 97/62 97 Nasal Cannula 2 08/31/16 19:00 94 Nasal Cannula 3.00 08/31/16 18:00 107 08/31/16 16:45 90 Nasal Cannula 3.00 08/31/16 16:01 107 16 127/77 100 08/31/16 15:00 106 16 134/80 100 Room Air 08/31/16 14:09 108 16 132/87 100 Room Air 08/31/16 14:00 108 16 08/31/16 13:00 99.2 114 16 124/75 98 Room Air 08/31/16 13:00 119 16 08/31/16 13:00 16 98 Room Air 08/31/16 12:45 99.6 124 16 124/73 99 Physical Exam GENERAL: This is a well-nourished, well-developed patient, in no apparent distress. SKIN: No rashes, ecchymoses or lesions. Cool and dry. HEAD: Atraumatic. Normocephalic. No temporal or scalp tenderness. EYES: Pupils equal round and reactive. Extraocular motions intact. No scleral icterus. No injection or drainage. ENT: Nose without bleeding, purulent drainage or septal hematoma. Throat without erythema, tonsillar hypertrophy or exudate. Uvula midline. Airway patent. NECK: Trachea midline. Supple, nontender, no meningeal signs. CARDIOVASCULAR: Heart sounds audible. No murmur appreciated. RESPIRATORY: Clear to auscultation. Breath sounds equal bilaterally. GASTROINTESTINAL: Abdomen soft, non-tender, nondistended. No hepato-splenomegaly , or palpable masses. No guarding. MUSCULOSKELETAL: Extremities without clubbing, cyanosis, or edema. No joint tenderness, effusion, or edema noted. No calf tenderness. Negative Homans sign bilaterally. NEUROLOGICAL: Awake and alert. Grossly nonfocal. Genitourinary examination: Surgically debrided area of the wound appeared to have a clean base with some areas of necrosis noted in one corner. Psych cooperative IV line sites with no evidence of infection. Laboratory Laboratory Tests Test 08/31/16 08/31/16 08/31/16 08/31/16 13:10 13:15 13:20 23:00 Blood Type A POSITIVE Antibody Screen NEGATIVE Blood Bank Comment White Blood Count 27.5 Red Blood Count 3.66 Hemoglobin 11.1 Hematocrit 33.4 Mean Corpuscular Volume 91.4 Mean Corpuscular Hemoglobin 30.5 Mean Corpuscular Hemoglobin 33.4 Concent Red Cell Distribution Width 11.5 Platelet Count 223 Mean Platelet Volume 8.3 Neutrophils (%) (Auto) 91.4 Lymphocytes (%) (Auto) 1.8 Monocytes (%) (Auto) 6.4 Eosinophils (%) (Auto) 0.0 Basophils (%) (Auto) 0.4 Neutrophils # (Auto) 25.1 Lymphocytes # (Auto) 0.5 Monocytes # (Auto) 1.8 Eosinophils # (Auto) 0.0 Basophils # (Auto) 0.1 CBC Comment DIFF FINAL Differential Comment Prothrombin Time 11.4 Prothromb Time International 1.0 Ratio Activated Partial 32.0 Thromboplast Time Sodium Level 133 Potassium Level 3.5 Chloride Level 98 Carbon Dioxide Level 20.5 Anion Gap 15 Blood Urea Nitrogen 20 Creatinine 1.70 Estimat Glomerular Filtration 43 Rate Random Glucose 474 Lactic Acid Level 3.4 Calcium Level 8.2 Total Bilirubin 2.7 Aspartate Amino Transf 5 (AST/SGOT) Alanine Aminotransferase 11 (ALT/SGPT) Alkaline Phosphatase 111 Total Creatine Kinase 24 Total Protein 6.7 Albumin 2.4 Urine Collection Type CLEAN CATCH Urine Color YELLOW Urine Turbidity CLEAR Urine pH 5.5 Urine Specific [place] 1.032 Urine Protein 100 Urine Glucose (UA) 1000 OR GREATER Urine Ketones NEG Urine Occult Blood TRACE Urine Nitrite NEG Urine Bilirubin NEG Urine Leukocyte Esterase NEG Urine RBC 0-3 Urine WBC 0-2 Urine Squamous Epithelial 0-5 Cells Urine Bacteria FEW Microscopic Urinalysis Comment CULT NOT INDICATED Urine Collection Time 13:20 Nasal Screen MRSA (PCR) NEGATIVE Test 09/01/16 03:30 White Blood Count 20.2 Red Blood Count 2.43 Hemoglobin 7.7 Hematocrit 22.4 Mean Corpuscular Volume 92.4 Mean Corpuscular Hemoglobin 31.8 Mean Corpuscular Hemoglobin 34.5 Concent Red Cell Distribution Width 12.5 Platelet Count 162 Mean Platelet Volume 8.3 Sodium Level 143 Potassium Level 3.3 Chloride Level 111 Carbon Dioxide Level 20.6 Anion Gap 11 Blood Urea Nitrogen 15 Creatinine 0.94 Estimat Glomerular Filtration 85 Rate Random Glucose 116 Calcium Level 7.1 Protein Corrected Calcium 8.4 Total Protein 4.8 Date/Time Procedure Status Source Growth 08/31/16 13:15 Aerobic Blood Culture - Preliminary Resulted Blood Peripheral NO GROWTH IN 1 DAY 08/31/16 13:15 Anaerobic Blood Culture - Preliminary Resulted Blood Peripheral NO GROWTH IN 1 DAY Result Diagram: 09/01/16 0330 09/01/16 0330 Imaging Last Impressions Abdomen/Pelvis CT 08/31/16 1308 Signed Impressions: Service Date/Time: Wednesday, August 31, 2016 13:36 - CONCLUSION: Significant air within the scrotum with soft tissue inflammation and skin thickening. Charlie's necrotizing fasciitis can have this appearance. I do not see any evidence of bowel or significant inguinal hernia. Triston Euceda MD Chest X-Ray 08/31/16 0000 Signed Impressions: Service Date/Time: Wednesday, August 31, 2016 18:32 - CONCLUSION: Left internal jugular central venous catheter in good position. No evidence of pneumothorax. 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 Case discussed with Dr. French: it appeared to be a deeper infection. No cultures or path in EMR. Will [facility] Pathology dept to see if stains can be performed on specimen recd. Continue Zosyn IV Continue Vanco IV for now will likely deescalate soon if no MRSA in blood. Continue Clinda (for toxin neutralization) for few more days. Kate Kincaid MD Sep 01, 2016 12:15
--- NOTE | 2016-09-01 14:05 | HHI.PR ---
Subjective Remarks Did well overnight. Slightly hypotensive. Denies pain other than with dressing changes. Denies fevers. Blood sugar improved. On Dobutamine. Objective Vital Signs Vital Signs Date Time Temp Pulse Resp B/P Pulse Ox O2 Delivery O2 Flow Rate FiO2 09/01/16 11:28 20 09/01/16 10:00 21 09/01/16 08:00 98.5 110 14 126/67 100 09/01/16 07:00 97 Nasal Cannula 2.00 09/01/16 07:00 110 09/01/16 04:00 98.2 100 14 144/73 100 09/01/16 03:29 100 Nasal Cannula 2.00 09/01/16 00:00 98.4 96 20 94/54 100 Automatic Cuff 08/31/16 23:00 96 08/31/16 22:00 98.8 105 16 109/53 99 Nasal Cannula 2 08/31/16 21:45 107 16 109/66 99 Nasal Cannula 2 109/66 08/31/16 21:30 105 18 105/62 99 Nasal Cannula 2 106/51 08/31/16 21:15 99.7 107 20 97/62 97 Nasal Cannula 2 08/31/16 19:00 94 Nasal Cannula 3.00 08/31/16 18:00 107 08/31/16 16:45 90 Nasal Cannula 3.00 08/31/16 16:01 107 16 127/77 100 08/31/16 15:00 106 16 134/80 100 Room Air 08/31/16 14:09 108 16 132/87 100 Room Air I/O 08/31/16 08/31/16 08/31/16 09/01/16 09/01/16 09/01/16 07:00 15:00 23:00 07:00 15:00 23:00 Intake Total 1100 ml 3834 ml 6201 ml Output Total 100 ml 375 ml Balance 1100 ml 3734 ml 5826 ml Intake Oral 1080 ml IV Total 1100 ml 3034 ml 5121 ml Other 800 ml Output Urine Total 375 ml Stool Total 0 ml Estimated Blood Loss 100 ml Result Diagram: 09/01/16 0330 09/01/16 0330 Objective Remarks NAD. resting comfortably abd soft. scrotum wound appears pink, edges clean. No eschar, creptius noted. Good blood flow. urine yellow Procedures 08/31/2015: Scrotal Exploration, Debridement of Scrotal Skin. 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 -Continue dressing changes wet to dry daily -Antibiotics per ID -Will reevaluate tomorrow. May need possible debridement on Tuesday. -Good blood sugar control. -Appreciate other service input Efra French MD Sep 01, 2016 14:05
[2016-09-01] MEDS: VANCOMYCIN 1,500 MG/NS 500 ML IV SCH ×2 (16:46)
[2016-09-02] VITALS (9 sets, daily range): BP systolic 107–139; BP diastolic 54–81; PULSE 85–93; RESP 17–25; TEMP 97.6–99.9; O2SAT 93–98
[2016-09-02] MEDS: PIPERACIL-TAZO 4.5 GM PREMIX 100 ML IV SCH ×4 (00:27→17:39)
[2016-09-02] MEDS: VANCOMYCIN 1,500 MG/NS 500 ML IV SCH ×4 (02:15→17:13)
[2016-09-02] MEDS: CHLORHEXIDINE GLUCONATE 2 % 1 PACK (2 CLOTHS) TOP SCH (03:02)
[2016-09-02] MEDS: INSULIN NovoLIN REGULAR SUPPLEMENTAL SCALE SQ SCH ×5 (03:03→21:22)
[2016-09-02] MEDS: LACTATED RINGER'S 1000 ML INJ 1,000 ML IV SCH (04:35)
[2016-09-02] MEDS: PCA - TOTAL MG MORPHINE DELIVERED PER SHIFT SCH (04:44)
[2016-09-02 04:54] LABS: MEAN CELL VOLUME 91.2 FL (80.0-100.0); MEAN CORPUSCULAR HEMOGLOBIN 31.9 PG (27.0-34.0); MEAN CORPUSCULAR HGB CONC 34.9 % (32.0-36.0); PLATELET COUNT 194 TH/MM3 (150-450); RED BLOOD COUNT 2.42 MIL/MM3 (4.50-5.90); RED CELL DISTRIBUTION WIDTH 12.4 % (11.6-17.2); REVIEW FLAG FINAL; WHITE BLOOD COUNT 13.1 TH/MM3 (4.0-11.0)
[2016-09-02 05:23] LABS: BICARBONATE 21.9 MEQ/L (21.0-32.0); POTASSIUM 3.2 MEQ/L (3.5-5.1)
[2016-09-02 05:36] LABS: CALCIUM-PROTEIN CORRECTED 8.7 MG/DL (8.5-10.1)
[2016-09-02] MEDS: CLINDAMYCIN INJ 900 MG in SODIUM CHLORIDE 0.9% INJ 100 ML IV SCH ×3 (05:57→21:29)
[2016-09-02] MEDS: POTASSIUM CHLOR 40 MEQ PREMIX 100 ML IV PRN ×2 (06:32→09:06)
--- NOTE | 2016-09-02 07:36 | HHI.CCPN ---
Subjective Remarks/Hospital Course Hospital Course: This is a 51-year-old male with an unremarkable past medical history who presents with a three-day of flulike symptoms and scrotal swelling who presented to the emergency department at [place] today. He states it is painful and red. He has not had anything draining from it. In the emergency department they did a CT abdomen and pelvis with IV contrast which demonstrated significant soft tissue infection tracking up the inguinal canal, concern for necrotizing soft tissue infection. He was tachycardic and hypotensive initially requiring IV fluid resuscitation. He was given vancomycin, Zosyn, clindamycin. Urology and general surgery consult addition he is emergently transferred to [facility] for operative debridement of probable Charlie's gangrene. When I evaluated the patient he states his pain is moderately controlled and 3 out of 10 arrest with 8 of 10 with activity. He denies chest pain shortness of breath. He has been nothing by mouth for greater than 24 hours. He has no history of problems under anesthesia. He endorses poor dentition, but states that none of these teeth are loose. He can walk up 2 flights of stairs without being winded. Subjective: 09/01: debrided yesterday. overnight, slightly hypotensive. dobutamine added to improve cardiac output. this morning pulse contour analysis demonstrates CO 10 LPM. SVV 17%. extubated on room air. 09/02: weaned off dobutamine yesterday. no complaints. pain adequately controlled. poor appetite yesterday, but improved throughout the day. Objective Vital Signs Date Time Temp Pulse Resp B/P Pulse Ox O2 Delivery O2 Flow Rate FiO2 09/02/16 06:00 90 09/02/16 04:44 18 09/02/16 04:00 98.5 107/54 94 09/01/16 21:01 21 09/01/16 19:00 Room Air 09/01/16 07:00 2.00 Intake and Output 09/01/16 09/01/16 09/02/16 08:00 16:00 00:00 Intake Total 6201 ml 1446 ml 1143 ml Output Total 375 ml 400 ml 300 ml Balance 5826 ml 1046 ml 843 ml Result Diagram: 09/02/16 0440 09/02/16 0440 Imaging Last 24 hours Impressions Abdomen/Pelvis CT 08/31/16 1308 Signed Impressions: Service Date/Time: Wednesday, August 31, 2016 13:36 - CONCLUSION: Significant air within the scrotum with soft tissue inflammation and skin thickening. Charlie's necrotizing fasciitis can have this appearance. I do not see any evidence of bowel or significant inguinal hernia. Triston Euceda MD Objective Remarks GENERAL: Middle-aged male, lying in bed HEENT: Normocephalic. Atraumatic. Pupils equal, reactive, round, conjugate. Mucous membranes are moist NECK:. Trachea is midline. There is no JVD. left IJ TLC site clean, dry, dressing intact. CHEST: Equal chest rise. Clear to auscultation. SPO2 93% on room air. CARDIOVASCULAR: Normal rate, regular rhythm. No appreciable murmurs. ABDOMEN: Soft, nontender, nondistended. No guarding. : groin packed, dressing with minimal blood. blankenship with yellow urine. MUSCULOSKELETAL: no peripheral edema. distal pulses 2+. left radial art line, dressing intact. NEUROLOGICAL: RASS 0. no gross focal motor or sensory deficits A/P Assessment and Plan Assessment: This is a 51-year-old male with Charlie's necrotizing fasciitis and newly diagnosed diabetes, who presented in severe sepsis. He is now post op day 2 from debridement. SIRS continues, but is improved. May need ongoing debridements. Off pressors. we will start to normalize him today, OOB, continue abx, de-line. Could d/c from ICU as well. 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 Respiratory: Atelectasis Wean oxygen by nasal cannula for goal SPO2 greater than 90% Incentive spirometer to bedside Head of bed at 30 --OOB to chair --PT consult Cardiovascular: Severe sepsis- resolving. d/c MIVF. Renal: Acute kidney injury- resolving. Charlie's Necrotizing Fasciitis --likely prerenal from sepsis --encourage PO. -- Blankenship catheter for accurate I/Os. -- Strict I/Os --Urology following FEN/GI: Hypokalemia Hypocalcemia diabetic diet. ICU electrolyte protocol Daily BMP Heme/ID: Charlie's Gangrene --daily CBC --Vanc with pharmacy dosing --Zosyn 4.5gm iv q6h --Clindamycin for toxin production -- ID consult: Dr. Thompson -- blood cultures 08/31: NGTD. Endocrine: Diabetes -- SSI, high scale, q4h --Hgb A1C Prophylaxis: GI Prophylaxis no evidence based indication. tolerating diet. DVT Prophylaxis -- SCDs SQH. Lines: 08/31 left radial arterial line- will d/c. --08/31 left IJ triple lumen catheter. will attempt to obtain piv x 2 and d/c. may be too edematous. too early for PICC given blood cultures still pending. -- Blankenship Dispo: Hospitalist consult. transfer from ICU. Ruddy Herbert MD Sep 02, 2016 07:36
[2016-09-02] MEDS: ACETAMINOPHEN 325 MG TAB PO SCH ×3 (09:00→21:21)
[2016-09-02] MEDS: DOCUSATE SODIUM 50 MG/SENNA 8.6 MG TAB PO SCH ×2 (09:04→21:21)
[2016-09-02] MEDS: TAMSULOSIN HCL 0.4 MG CAP PO SCH (09:04)
[2016-09-02] MEDS: SODIUM CHLORIDE 0.9% FLUSH 5 ML FLUSH IV FLUSH SCH ×2 (09:04→21:21)
[2016-09-02] MEDS: HEPARIN SODIUM - SQ 10,000 UNITS/ML VIAL SQ SCH ×2 (13:16→21:22)
[2016-09-02] MEDS ORDERED: PHARMACY ORDERED LAB XX ONE (14:45)
--- NOTE | 2016-09-02 16:39 | HHI.PR ---
Subjective Remarks doing well. Has minimal pain. Denies fevers. Ambulating. Objective Vital Signs Vital Signs Date Time Temp Pulse Resp B/P Pulse Ox O2 Delivery O2 Flow Rate FiO2 09/02/16 16:00 97.8 86 17 120/74 98 09/02/16 12:00 97.7 90 22 112/68 98 09/02/16 12:00 90 09/02/16 10:00 90 09/02/16 08:00 89 09/02/16 08:00 98.5 85 22 112/81 95 09/02/16 07:00 98 Room Air 2.00 21 09/02/16 06:00 90 09/02/16 04:44 18 09/02/16 04:00 98.5 85 18 107/54 94 09/02/16 04:00 85 09/02/16 02:00 85 09/02/16 00:00 91 09/02/16 00:00 97.6 91 25 139/61 97 09/01/16 22:00 93 09/01/16 22:00 20 09/01/16 21:01 99 21 09/01/16 20:00 97.4 88 18 111/51 99 09/01/16 20:00 85 09/01/16 19:00 Room Air I/O 09/01/16 09/01/16 09/01/16 09/02/16 09/02/16 09/02/16 07:00 15:00 23:00 07:00 15:00 23:00 Intake Total 6201 ml 1446 ml 1143 ml 1344 ml 1050 ml Output Total 375 ml 400 ml 300 ml 400 ml 400 ml Balance 5826 ml 1046 ml 843 ml 944 ml 650 ml Intake Oral 1080 ml 420 ml 600 ml IV Total 5121 ml 904 ml 1143 ml 1344 ml 450 ml Other 122 ml Output Urine Total 375 ml 400 ml 300 ml 400 ml 400 ml Stool Total 0 ml # Bowel Movements 0 0 Result Diagram: 09/02/1643909/02/16439 Objective Remarks NAD. resting comfortably abd soft. scrotum wound appears pink, edges clean. healthy with some granulation tissue noted. No eschar seen. urine yellow Procedures 08/31/2015: Scrotal Exploration, Debridement of Scrotal Skin. 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 Will hold off on debridement at this time -Ambulate -Maintain good blood sugar control Efra French MD Sep 02, 2016 16:39
[2016-09-03] VITALS: BP 126/80; PULSE 90; RESP 20; TEMP 98.8; O2SAT 95
[2016-09-03] MEDS: PIPERACIL-TAZO 4.5 GM PREMIX 100 ML IV SCH ×5 (00:27→22:21)
[2016-09-03] MEDS: INSULIN NovoLIN REGULAR SUPPLEMENTAL SCALE SQ SCH ×7 (00:27→23:34)
[2016-09-03] MEDS: ACETAMINOPHEN 325 MG TAB PO SCH ×4 (03:23→22:20)
[2016-09-03] MEDS: VANCOMYCIN 1,500 MG/NS 500 ML IV SCH ×2 (03:24)
[2016-09-03 03:46] LABS: HEMATOCRIT 23.5 % (39.0-51.0); MEAN CELL VOLUME 91.1 FL (80.0-100.0); MEAN CORPUSCULAR HEMOGLOBIN 31.2 PG (27.0-34.0); MEAN CORPUSCULAR HGB CONC 34.3 % (32.0-36.0); PLATELET COUNT 254 TH/MM3 (150-450); RED BLOOD COUNT 2.59 MIL/MM3 (4.50-5.90); RED CELL DISTRIBUTION WIDTH 12.5 % (11.6-17.2); REVIEW FLAG FINAL; WHITE BLOOD COUNT 10.2 TH/MM3 (4.0-11.0)
[2016-09-03] MEDS: CHLORHEXIDINE GLUCONATE 2 % 1 PACK (2 CLOTHS) TOP SCH (03:50)
[2016-09-03 04:06] LABS: BICARBONATE 23.6 MEQ/L (21.0-32.0); POTASSIUM 3.4 MEQ/L (3.5-5.1)
[2016-09-03] MEDS: HEPARIN SODIUM - SQ 10,000 UNITS/ML VIAL SQ SCH ×3 (06:10→22:21)
[2016-09-03] MEDS: CLINDAMYCIN INJ 900 MG in SODIUM CHLORIDE 0.9% INJ 100 ML IV SCH ×2 (06:10→13:36)
[2016-09-03] MEDS: TAMSULOSIN HCL 0.4 MG CAP PO SCH (07:57)
[2016-09-03] MEDS: DOCUSATE SODIUM 50 MG/SENNA 8.6 MG TAB PO SCH ×2 (07:58→22:20)
[2016-09-03] MEDS: SODIUM CHLORIDE 0.9% FLUSH 5 ML FLUSH IV FLUSH SCH ×2 (07:58→22:19)
[2016-09-03 08:00] VITALS: BP 118/66; PULSE 81; RESP 17; TEMP 97.4; O2SAT 95
--- NOTE | 2016-09-03 08:14 | HHI.PR ---
Subjective Remarks This is a very pleasant 51 y/o Male who was admitted due to flulike symptoms and scrotal swelling, erythema and edema, concern for necrotizing soft tissue infection, tachycardic and hypotensive seen by sales and in home delivery specialist, improved after IV fluid resuscitation, on Vancomycin and Zosyn and Clindamycin on admission. has Tobacco dependence, patient seen in the room in the presence of nurse Miss Paez no Nausea, vomit or diarrhea. has Constipation. he was in Intensive Care Unit and Transferred to the Floor today. Objective Vital Signs Date Time Temp Pulse Resp B/P Pulse Ox O2 Delivery O2 Flow Rate FiO2 09/03/16 04:23 20 09/03/16 00:00 98.8 90 20 126/80 95 09/02/16 20:00 99.9 93 18 130/74 93 09/02/16 20:00 Room Air 09/02/16 16:00 97.8 86 17 120/74 98 09/02/16 12:00 97.7 90 22 112/68 98 09/02/16 12:00 90 09/02/16 10:00 90 I/O 09/02/16 09/02/16 09/02/16 09/03/16 09/03/16 09/03/16 07:00 15:00 23:00 07:00 15:00 23:00 Intake Total 1344 ml 1050 ml 540 ml 240 ml 2173 ml Output Total 400 ml 400 ml 650 ml 650 ml Balance 944 ml 650 ml -110 ml -410 ml 2173 ml Intake Oral 600 ml 540 ml 240 ml IV Total 1344 ml 450 ml 2173 ml Output Urine Total 400 ml 400 ml 650 ml 650 ml # Bowel Movements 0 0 0 Result Diagram: 09/03/16 0325 09/03/16 0325 Imaging Last Impressions Abdomen/Pelvis CT 08/31/16 1308 Signed Impressions: Service Date/Time: Wednesday, August 31, 2016 13:36 - CONCLUSION: Significant air within the scrotum with soft tissue inflammation and skin thickening. Charlie's necrotizing fasciitis can have this appearance. I do not see any evidence of bowel or significant inguinal hernia. Triston Euceda MD Chest X-Ray 08/31/16 0000 Signed Impressions: Service Date/Time: Wednesday, August 31, 2016 18:32 - CONCLUSION: Left internal jugular central venous catheter in good position. No evidence of pneumothorax. 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 Other Results Laboratory Tests Test 08/31/16 08/31/16 08/31/16 08/31/16 13:10 13:15 13:20 23:00 Blood Type A POSITIVE Antibody Screen NEGATIVE Blood Bank Comment Neutrophils (%) (Auto) 91.4 % Lymphocytes (%) (Auto) 1.8 % Monocytes (%) (Auto) 6.4 % Eosinophils (%) (Auto) 0.0 % Basophils (%) (Auto) 0.4 % Neutrophils # (Auto) 25.1 TH/MM3 Lymphocytes # (Auto) 0.5 TH/MM3 Monocytes # (Auto) 1.8 TH/MM3 Eosinophils # (Auto) 0.0 TH/MM3 Basophils # (Auto) 0.1 TH/MM3 CBC Comment DIFF FINAL Differential Comment Prothrombin Time 11.4 SEC Prothromb Time International 1.0 RATIO Ratio Activated Partial 32.0 SEC Thromboplast Time Lactic Acid Level 3.4 mmol/L Total Bilirubin 2.7 MG/DL Aspartate Amino Transf 5 U/L (AST/SGOT) Alanine Aminotransferase 11 U/L (ALT/SGPT) Alkaline Phosphatase 111 U/L Total Creatine Kinase 24 U/L Albumin 2.4 GM/DL Urine Collection Type CLEAN CATCH Urine Color YELLOW Urine Turbidity CLEAR Urine pH 5.5 Urine Specific [place] 1.032 Urine Protein 100 mg/dL Urine Glucose (UA) 1000 OR GREATER mg/dL Urine Ketones NEG mg/dL Urine Occult Blood TRACE Urine Nitrite NEG Urine Bilirubin NEG Urine Leukocyte Esterase NEG Urine RBC 0-3 /hpf Urine WBC 0-2 /hpf Urine Squamous Epithelial 0-5 /hpf Cells Urine Bacteria FEW /hpf Microscopic Urinalysis Comment CULT NOT INDICATED Urine Collection Time 13:20 Nasal Screen MRSA (PCR) NEGATIVE Test 09/02/16 09/02/16 09/03/16 04:40 14:30 03:25 Protein Corrected Calcium 8.7 MG/DL Total Protein 4.8 GM/DL Vancomycin Level Trough 15.8 MCG/ML White Blood Count 10.2 TH/MM3 Red Blood Count 2.59 MIL/MM3 Hemoglobin 8.1 GM/DL Hematocrit 23.5 % Mean Corpuscular Volume 91.1 FL Mean Corpuscular Hemoglobin 31.2 PG Mean Corpuscular Hemoglobin 34.3 % Concent Red Cell Distribution Width 12.5 % Platelet Count 254 TH/MM3 Mean Platelet Volume 8.2 FL Sodium Level 137 MEQ/L Potassium Level 3.4 MEQ/L Chloride Level 105 MEQ/L Carbon Dioxide Level 23.6 MEQ/L Anion Gap 8 MEQ/L Blood Urea Nitrogen 13 MG/DL Creatinine 1.20 MG/DL Estimat Glomerular Filtration 64 ML/MIN Rate Random Glucose 131 MG/DL Calcium Level 7.7 MG/DL Objective Remarks GENERAL: Middle-aged male, lying in bed HEENT: Normocephalic. Atraumatic. Pupils equal, reactive, round, conjugate. Mucous membranes are dry NECK:. Trachea is midline. There is no JVD. CHEST: Equal chest rise. Clear to auscultation. SPO2 91% on room air. CARDIOVASCULAR: Tachycardic rate, regular rhythm. No appreciable murmurs. ABDOMEN: Soft, nontender, nondistended. No guarding. : significant scrotal edema with erythema, very tender to palpation, indurated. MUSCULOSKELETAL: no peripheral edema. distal pulses 2+ NEUROLOGICAL: RASS 0. no gross focal motor or sensory deficits Medications and IVs Current Medications Medications (Trade) Dose Ordered Sig/Matt Route Start Time Stop Time Status Last Admin Clindamycin Phosphate 900 mg/ Sodium Chloride 106 ml @ 212 mls/hr Q8H IV 08/31/16 23:00 09/03/16 06:10 Piperacillin Sod/ Tazobactam Sod 100 ml @ 200 mls/hr Q6H IV 08/31/16 18:00 09/03/16 06:56 (Vancomycin Consult Pharmacy) 0 ml @ 0 mls/hr UNSCH OTHER 08/31/16 14:30 Magnesium Oxide 800 mg 800 mg UNSCH PRN PO 08/31/16 14:30 Magnesium Sulfate 4 gm/Sodium Chloride 100 ml @ 50 mls/hr UNSCH PRN IV 08/31/16 14:30 Magnesium Sulfate 2 gm/Sodium Chloride 100 ml @ 50 mls/hr UNSCH PRN IV 08/31/16 14:30 Potassium Chloride 100 ml @ 50 mls/hr Q2H PRN IV 08/31/16 14:30 Potassium Chloride 100 ml @ 50 mls/hr Q2H PRN IV 08/31/16 14:30 Potassium Chloride 100 ml @ 50 mls/hr Q2H PRN IV 08/31/16 14:30 09/02/16 09:06 (KCl 40 Meq Premix Inj) 100 ml @ 25 mls/hr UNSCH PRN IV 08/31/16 14:30 09/01/16 06:44 (KCl 40 Meq/30 ml Liq) 40 meq UNSCH PRN PO/TUBE 08/31/16 14:30 (KCl 40 Meq/30 ml Liq) 40 meq UNSCH PRN PO/TUBE 08/31/16 14:30 (K-Phos) 2,000 mg Q4H PRN PO 08/31/16 14:30 Potassium Phosphate 2000 mg 2,000 mg UNSCH PRN PO/TUBE 08/31/16 14:30 Potassium Phosphate 30 mmol/ Sodium Chloride 260 ml @ 42 mls/hr UNSCH PRN IV 08/31/16 14:30 (Sodium Phosphate Inj/NS 250 ml Inj) 250 ml @ 42 mls/hr UNSCH PRN IV 08/31/16 14:30 (D50w (Vial) Inj) 25 ml UNSCH PRN IV PUSH 08/31/16 14:30 (NovoLIN R SUPPLEMENTAL SCALE) 1 Q4HR SQ 08/31/16 16:00 09/03/16 00:27 (NS Flush) 2 ml UNSCH PRN IV FLUSH 08/31/16 14:30 08/31/16 15:33 (NS Flush) 2 ml BID IV FLUSH 08/31/16 21:00 09/02/16 21:21 (Zofran Inj) 4 mg Q6H PRN IV 08/31/16 18:00 (Saima-Colace) 2 tab BID PO 08/31/16 21:00 09/03/16 07:58 Miscellaneous Information 1 Q361D XX 08/31/16 14:30 (Chlorhexidine 2% Cloth) 3 pack Taper DAILY@04 TOP 09/01/16 04:00 08/28/17 03:59 09/02/16 03:02 (Chlorhexidine 2% Cloth) 3 pack UNSCH PRN TOP 08/31/16 14:30 (Flomax) 0.4 mg DAILY PO 09/01/16 09:00 09/03/16 07:57 Naloxone HCl 0.4 mg 0.4 mg UNSCH PRN IV 08/31/16 22:15 (Vancomycin Inj/ NS 500 ml Inj) 515 ml @ 257.5 mls/ hr Q12H IV 09/01/16 15:00 09/03/16 03:24 (Heparin Inj) 5,000 units Q8HR SQ 09/02/16 14:00 09/03/16 06:10 (Tylenol) 650 mg Q6H PO 09/02/16 09:00 09/03/16 07:58 (Dilaudid Pf Inj) 0.5 mg Q4H PRN IV PUSH 09/02/16 07:45 (Roxicodone) 5 mg Q4H PRN PO 09/02/16 07:45 09/02/16 17:39 Miscellaneous Information SPECIFIC LAB TO BE LUCIA... ONCE ONCE XX 09/04/16 02:45 09/04/16 02:46 A/P Assessment and Plan 1. Sepsis present on admission secondary to Charlie's Gangrene, on Zosyn IV, Vancomycin, Clindamycin. Blood cultures negative will be discontinued Vancomycin no BSI. 2. Charlie's Gangrene status post I and D by Urology specialist following 3. Probable Diabetes mellitus II asked for hemoglobin A1C. 4. Electrolyte derangement replaced potassium today in 3.4 given 40 meq and following. 5. Constipation given lactulose 6. RENATA improved. DVT prophylaxis with Heparin. Discharge Planning Expected to be in the next two days. Attending Attestation Seen in the room in the presence of nurse Miss Paez, all questions answered to the patient to the best of my abilities. Romie Arredondo MD Sep 03, 2016 08:14
[2016-09-03] MEDS ORDERED: POTASSIUM CHLORIDE 20 MEQ CONTROLLED RELEASE TAB PO ONE (09:45)
[2016-09-03] MEDS ORDERED: LACTULOSE SYRUP 20 GM/30 ML CUP PO ONE (11:00)
[2016-09-03 12:00] VITALS: BP 126/77; PULSE 80; RESP 17; TEMP 98.4; O2SAT 98
--- NOTE | 2016-09-03 14:06 | HHI.IDPN ---
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 Overnight events reviewed. No fever No rash No diarrhea Antibiotics Zosyn IV Vanco IV Clindamycin IV Lines Line sites with no e.o infection Past Medical History reviewed Allergies: Coded Allergies: No Known Allergies (Unverified , 08/31/16) Objective . Vital Signs Date Time Temp Pulse Resp B/P Pulse Ox O2 Delivery O2 Flow Rate FiO2 09/03/16 12:00 98.4 80 17 126/77 98 09/03/16 08:00 97.4 81 17 118/66 95 09/03/16 04:23 20 09/03/16 00:00 98.8 90 20 126/80 95 09/02/16 20:00 99.9 93 18 130/74 93 09/02/16 20:00 Room Air 09/02/16 16:00 97.8 86 17 120/74 98 09/02/16 09/02/16 09/03/16 15:00 23:00 07:00 Intake Total 1050 ml 540 ml 240 ml Output Total 400 ml 650 ml 650 ml Balance 650 ml -110 ml -410 ml Intake Oral 600 ml 540 ml 240 ml IV Total 450 ml Output Urine Total 400 ml 650 ml 650 ml # Bowel Movements 0 0 0 . Laboratory Tests Test 09/02/16 09/03/16 04:40 03:25 White Blood Count 13.1 TH/MM3 10.2 TH/MM3 Red Blood Count 2.42 MIL/MM3 2.59 MIL/MM3 Hemoglobin 7.7 GM/DL 8.1 GM/DL Hematocrit 22.0 % 23.5 % Mean Corpuscular Volume 91.2 FL 91.1 FL Mean Corpuscular Hemoglobin 31.9 PG 31.2 PG Mean Corpuscular Hemoglobin 34.9 % 34.3 % Concent Red Cell Distribution Width 12.4 % 12.5 % Platelet Count 194 TH/MM3 254 TH/MM3 Mean Platelet Volume 8.3 FL 8.2 FL Laboratory Tests Test 09/02/16 09/03/16 04:40 03:25 Sodium Level 138 MEQ/L 137 MEQ/L Potassium Level 3.2 MEQ/L 3.4 MEQ/L Chloride Level 106 MEQ/L 105 MEQ/L Carbon Dioxide Level 21.9 MEQ/L 23.6 MEQ/L Anion Gap 10 MEQ/L 8 MEQ/L Blood Urea Nitrogen 15 MG/DL 13 MG/DL Creatinine 1.17 MG/DL 1.20 MG/DL Estimat Glomerular Filtration 66 ML/MIN 64 ML/MIN Rate Random Glucose 146 MG/DL 131 MG/DL Calcium Level 7.4 MG/DL 7.7 MG/DL Protein Corrected Calcium 8.7 MG/DL Total Protein 4.8 GM/DL Imaging Last Impressions Abdomen/Pelvis CT 08/31/16 1308 Signed Impressions: Service Date/Time: Wednesday, August 31, 2016 13:36 - CONCLUSION: Significant air within the scrotum with soft tissue inflammation and skin thickening. Charlie's necrotizing fasciitis can have this appearance. I do not see any evidence of bowel or significant inguinal hernia. Triston Euceda MD Chest X-Ray 08/31/16 0000 Signed Impressions: Service Date/Time: Wednesday, August 31, 2016 18:32 - CONCLUSION: Left internal jugular central venous catheter in good position. No evidence of pneumothorax. Felix Caballero MD Physical Exam GENERAL: This is a well-nourished, well-developed patient, in no apparent distress. SKIN: No rashes, ecchymoses or lesions. Cool and dry. HEAD: Atraumatic. Normocephalic. No temporal or scalp tenderness. EYES: Pupils equal round and reactive. Extraocular motions intact. No scleral icterus. No injection or drainage. ENT: Nose without bleeding, purulent drainage or septal hematoma. Throat without erythema, tonsillar hypertrophy or exudate. Uvula midline. Airway patent. NECK: Trachea midline. Supple, nontender, no meningeal signs. CARDIOVASCULAR: Heart sounds audible. No murmur appreciated. RESPIRATORY: Clear to auscultation. Breath sounds equal bilaterally. GASTROINTESTINAL: Abdomen soft, non-tender, nondistended. No hepato-splenomegaly , or palpable masses. No guarding. MUSCULOSKELETAL: Extremities without clubbing, cyanosis, or edema. No joint tenderness, effusion, or edema noted. No calf tenderness. Negative Homans sign bilaterally. NEUROLOGICAL: Awake and alert. Grossly nonfocal. Genitourinary examination: Surgically debrided area of the wound appeared to have a clean base with some areas of necrosis noted in one corner. Psych cooperative IV line sites with no evidence of infection. Assessment & Plan Remarks Sepsis present on admission Source likely Charlie's gangrene New onset diabetes mellitus Recommendations Follow blood cultures. Continue Zosyn IV DC Vanco IV DC Clinda If clinically deteriorates on this regimen will reassess. Will follow next week. Kate Thompson MD Sep 03, 2016 14:06
--- NOTE | 2016-09-03 15:28 | HHI.PR ---
Subjective Remarks doing well. pain with dressing changes. Denies fevers. Objective Vital Signs Vital Signs Date Time Temp Pulse Resp B/P Pulse Ox O2 Delivery O2 Flow Rate FiO2 09/03/16 12:00 98.4 80 17 126/77 98 09/03/16 08:00 97.4 81 17 118/66 95 09/03/16 04:23 20 09/03/16 00:00 98.8 90 20 126/80 95 09/02/16 20:00 99.9 93 18 130/74 93 09/02/16 20:00 Room Air 09/02/16 16:00 97.8 86 17 120/74 98 I/O 09/02/16 09/02/16 09/02/16 09/03/16 09/03/16 09/03/16 07:00 15:00 23:00 07:00 15:00 23:00 Intake Total 1344 ml 1050 ml 540 ml 240 ml 2886 ml Output Total 400 ml 400 ml 650 ml 650 ml 1500 ml Balance 944 ml 650 ml -110 ml -410 ml 1386 ml Intake Oral 600 ml 540 ml 240 ml 340 ml IV Total 1344 ml 450 ml 2546 ml Output Urine Total 400 ml 400 ml 650 ml 650 ml 1500 ml # Bowel Movements 0 0 0 0 Result Diagram: 09/03/16 0325 09/03/16 0325 Objective Remarks NAD. resting comfortably abd soft. scrotum wound appears pink, edges clean. healthy with some granulation tissue noted. No eschar seen. urine yellow Procedures 08/31/2015: Scrotal Exploration, Debridement of Scrotal Skin. 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 Will hold off on debridement at this time. Recommend short term rehab for wound care. -Ambulate -Maintain good blood sugar control Efra French MD Sep 03, 2016 15:28
[2016-09-03 16:00] VITALS: BP 130/79; PULSE 85; RESP 17; TEMP 96.3; O2SAT 96
[2016-09-03 17:06] LABS: HEMOGLOBIN A1a 2.1 %; HEMOGLOBIN A1b 1.9 %; HEMOGLOBIN Ao 81.2 %; HEMOGLOBIN LA1C 1.9 %; HEMOGLOBIN P3 3.8 %
[2016-09-03 20:00] VITALS: BP 143/82; PULSE 87; RESP 20; TEMP 98.9; O2SAT 96
[2016-09-04] VITALS: BP 140/68; PULSE 91; RESP 20; TEMP 98.7; O2SAT 96
[2016-09-04] MEDS: HYDROmorphone HCL PF 1 MG/ML VIAL IV PUSH PRN (01:25)
[2016-09-04] MEDS ORDERED: PHARMACY ORDERED LAB XX ONE (02:45)
[2016-09-04] MEDS: INSULIN NovoLIN REGULAR SUPPLEMENTAL SCALE SQ SCH ×5 (04:00→22:33)
[2016-09-04] MEDS: CHLORHEXIDINE GLUCONATE 2 % 1 PACK (2 CLOTHS) TOP SCH (04:00)
[2016-09-04] MEDS: ACETAMINOPHEN 325 MG TAB PO SCH ×4 (05:46→22:35)
[2016-09-04] MEDS: HEPARIN SODIUM - SQ 10,000 UNITS/ML VIAL SQ SCH ×3 (05:47→22:35)
[2016-09-04] MEDS: PIPERACIL-TAZO 4.5 GM PREMIX 100 ML IV SCH ×3 (05:47→16:45)
[2016-09-04 05:48] LABS: HEMATOCRIT 24.3 % (39.0-51.0); MEAN CELL VOLUME 92.8 FL (80.0-100.0); MEAN CORPUSCULAR HEMOGLOBIN 31.3 PG (27.0-34.0); MEAN CORPUSCULAR HGB CONC 33.7 % (32.0-36.0); PLATELET COUNT 305 TH/MM3 (150-450); RED BLOOD COUNT 2.62 MIL/MM3 (4.50-5.90); RED CELL DISTRIBUTION WIDTH 12.6 % (11.6-17.2); REVIEW FLAG FINAL; WHITE BLOOD COUNT 19.5 TH/MM3 (4.0-11.0)
[2016-09-04 06:11] LABS: BICARBONATE 23.2 MEQ/L (21.0-32.0); POTASSIUM 3.9 MEQ/L (3.5-5.1)
[2016-09-04 08:00] VITALS: BP 130/70; PULSE 86; RESP 18; TEMP 98.2; O2SAT 97
[2016-09-04 08:12] LABS: VANCOMYCIN TROUGH 14.3 MCG/ML (5.0-10.0)
[2016-09-04] MEDS: DOCUSATE SODIUM 50 MG/SENNA 8.6 MG TAB PO SCH ×2 (08:21→22:34)
[2016-09-04] MEDS: TAMSULOSIN HCL 0.4 MG CAP PO SCH (08:21)
[2016-09-04] MEDS: SODIUM CHLORIDE 0.9% FLUSH 5 ML FLUSH IV FLUSH SCH ×2 (08:23→22:34)
[2016-09-04 12:00] VITALS: BP 128/78; PULSE 84; RESP 19; TEMP 97.9; O2SAT 97
--- NOTE | 2016-09-04 14:42 | HHI.PR ---
Subjective Remarks This is a very pleasant 51 y/o Male who was admitted due to flulike symptoms and scrotal swelling, erythema and edema, concern for necrotizing soft tissue infection, tachycardic and hypotensive seen by planning management it specialist, improved after IV fluid resuscitation, on Vancomycin and Zosyn and Clindamycin on admission. has Tobacco dependence, patient seen in the room in the presence of nurse Miss Paez no Nausea, vomit or diarrhea. has Constipation. he was in Intensive Care Unit and Transferred to the Floor for Hospitalist team management, he continue management as per ID specialist and General Surgery. had I and D performed at 1:30 AM today. at this time no complaint. No nausea, vomit or diarrhea. Objective Vital Signs Date Time Temp Pulse Resp B/P Pulse Ox O2 Delivery O2 Flow Rate FiO2 09/04/16 12:00 97.9 84 19 128/78 97 09/04/16 08:23 Room Air 09/04/16 08:00 98.2 86 18 130/70 97 09/04/16 00:00 98.7 91 20 140/68 96 09/03/16 20:00 98.9 87 20 143/82 96 09/03/16 16:00 96.3 85 17 130/79 96 I/O 09/03/16 09/03/16 09/03/16 09/04/16 09/04/16 09/04/16 07:00 15:00 23:00 07:00 15:00 23:00 Intake Total 240 ml 2886 ml 580 ml 820 ml Output Total 650 ml 1500 ml 600 ml 700 ml Balance -410 ml 1386 ml -20 ml 120 ml Intake Oral 240 ml 340 ml 480 ml 720 ml IV Total 2546 ml 100 ml 100 ml Output Urine Total 650 ml 1500 ml 600 ml 700 ml # Bowel Movements 0 0 1 Result Diagram: 09/04/16 0400 09/04/16 0400 Imaging Last Impressions Abdomen/Pelvis CT 08/31/16 1308 Signed Impressions: Service Date/Time: Wednesday, August 31, 2016 13:36 - CONCLUSION: Significant air within the scrotum with soft tissue inflammation and skin thickening. Charlie's necrotizing fasciitis can have this appearance. I do not see any evidence of bowel or significant inguinal hernia. Triston Euceda MD Chest X-Ray 08/31/16 0000 Signed Impressions: Service Date/Time: Wednesday, August 31, 2016 18:32 - CONCLUSION: Left internal jugular central venous catheter in good position. No evidence of pneumothorax. 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 Other Results Laboratory Tests Test 08/31/16 08/31/16 08/31/16 08/31/16 13:10 13:15 13:20 23:00 Blood Type A POSITIVE Antibody Screen NEGATIVE Blood Bank Comment Neutrophils (%) (Auto) 91.4 % Lymphocytes (%) (Auto) 1.8 % Monocytes (%) (Auto) 6.4 % Eosinophils (%) (Auto) 0.0 % Basophils (%) (Auto) 0.4 % Neutrophils # (Auto) 25.1 TH/MM3 Lymphocytes # (Auto) 0.5 TH/MM3 Monocytes # (Auto) 1.8 TH/MM3 Eosinophils # (Auto) 0.0 TH/MM3 Basophils # (Auto) 0.1 TH/MM3 CBC Comment DIFF FINAL Differential Comment Prothrombin Time 11.4 SEC Prothromb Time International 1.0 RATIO Ratio Activated Partial 32.0 SEC Thromboplast Time Lactic Acid Level 3.4 mmol/L Total Bilirubin 2.7 MG/DL Aspartate Amino Transf 5 U/L (AST/SGOT) Alanine Aminotransferase 11 U/L (ALT/SGPT) Alkaline Phosphatase 111 U/L Total Creatine Kinase 24 U/L Albumin 2.4 GM/DL Urine Collection Type CLEAN CATCH Urine Color YELLOW Urine Turbidity CLEAR Urine pH 5.5 Urine Specific [place] 1.032 Urine Protein 100 mg/dL Urine Glucose (UA) 1000 OR GREATER mg/dL Urine Ketones NEG mg/dL Urine Occult Blood TRACE Urine Nitrite NEG Urine Bilirubin NEG Urine Leukocyte Esterase NEG Urine RBC 0-3 /hpf Urine WBC 0-2 /hpf Urine Squamous Epithelial 0-5 /hpf Cells Urine Bacteria FEW /hpf Microscopic Urinalysis Comment CULT NOT INDICATED Urine Collection Time 13:20 Nasal Screen MRSA (PCR) NEGATIVE Test 09/02/16 09/03/16 09/04/16 04:40 03:25 04:00 Protein Corrected Calcium 8.7 MG/DL Total Protein 4.8 GM/DL Hemoglobin A1c 8.8 % White Blood Count 19.5 TH/MM3 Red Blood Count 2.62 MIL/MM3 Hemoglobin 8.2 GM/DL Hematocrit 24.3 % Mean Corpuscular Volume 92.8 FL Mean Corpuscular Hemoglobin 31.3 PG Mean Corpuscular Hemoglobin 33.7 % Concent Red Cell Distribution Width 12.6 % Platelet Count 305 TH/MM3 Mean Platelet Volume 7.9 FL Sodium Level 136 MEQ/L Potassium Level 3.9 MEQ/L Chloride Level 103 MEQ/L Carbon Dioxide Level 23.2 MEQ/L Anion Gap 10 MEQ/L Blood Urea Nitrogen 9 MG/DL Creatinine 1.04 MG/DL Estimat Glomerular Filtration 76 ML/MIN Rate Random Glucose 118 MG/DL Calcium Level 8.2 MG/DL Vancomycin Level Trough 14.3 MCG/ML Objective Remarks GENERAL: Middle-aged male, lying in bed HEENT: Normocephalic. Atraumatic. Pupils equal, reactive, round, conjugate. Mucous membranes are dry NECK:. Trachea is midline. There is no JVD. CHEST: Equal chest rise. Clear to auscultation. SPO2 91% on room air. CARDIOVASCULAR: Tachycardic rate, regular rhythm. No appreciable murmurs. ABDOMEN: Soft, nontender, nondistended. No guarding. : significant scrotal edema with erythema, very tender to palpation, indurated. MUSCULOSKELETAL: no peripheral edema. distal pulses 2+ NEUROLOGICAL: RASS 0. no gross focal motor or sensory deficits Medications and IVs Current Medications Medications (Trade) Dose Ordered Sig/Matt Route Start Time Stop Time Status Last Admin (Zosyn 4.5 Gm Premix) 100 ml @ 200 mls/hr Q6H IV 08/31/16 18:00 09/04/16 11:41 (D50w (Vial) Inj) 25 ml UNSCH PRN IV PUSH 08/31/16 14:30 (NovoLIN R SUPPLEMENTAL SCALE) 1 Q4HR SQ 08/31/16 16:00 09/03/16 15:38 (NS Flush) 2 ml UNSCH PRN IV FLUSH 08/31/16 14:30 08/31/16 15:33 (NS Flush) 2 ml BID IV FLUSH 08/31/16 21:00 09/04/16 08:23 (Zofran Inj) 4 mg Q6H PRN IV 08/31/16 18:00 (Saima-Colace) 2 tab BID PO 08/31/16 21:00 09/04/16 08:21 Miscellaneous Information 1 Q361D XX 08/31/16 14:30 (Chlorhexidine 2% Cloth) 3 pack Taper DAILY@04 TOP 09/01/16 04:00 08/28/17 03:59 09/02/16 03:02 (Chlorhexidine 2% Cloth) 3 pack UNSCH PRN TOP 08/31/16 14:30 (Flomax) 0.4 mg DAILY PO 09/01/16 09:00 09/04/16 08:21 (Narcan Inj) 0.4 mg UNSCH PRN IV 08/31/16 22:15 (Heparin Inj) 5,000 units Q8HR SQ 09/02/16 14:00 09/04/16 13:25 (Tylenol) 650 mg Q6H PO 09/02/16 09:00 09/04/16 13:23 (Dilaudid Pf Inj) 0.5 mg Q4H PRN IV PUSH 09/02/16 07:45 09/04/16 01:25 (Roxicodone) 5 mg Q4H PRN PO 09/02/16 07:45 09/03/16 22:21 A/P Assessment and Plan 1. Sepsis present on admission secondary to Charlie's Gangrene, on Zosyn IV, Vancomycin, Clindamycin. discontinued Vancomycin and Clindamycin by ID specialist and continued on Zosyn and follow next week. 2. 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 Diabetes mellitus, hemoglobin A1C 8.8 continue sliding Scale 4. Electrolyte derangement replaced potassium today in 3.4 given 40 meq and following. 5. Constipation given lactulose Improved. 6. RENATA improved. DVT prophylaxis with Heparin. Discharge Planning Expected to be in the next two days. Romie Arredondo MD Sep 04, 2016 14:42
[2016-09-04 16:00] VITALS: BP 131/76; PULSE 82; RESP 18; TEMP 97.9; O2SAT 97
[2016-09-04 20:00] VITALS: BP 145/76; PULSE 94; RESP 20; TEMP 98.6; O2SAT 97
[2016-09-05] VITALS: BP 141/79; PULSE 88; RESP 20; TEMP 98.7; O2SAT 96
[2016-09-05] MEDS: PIPERACIL-TAZO 4.5 GM PREMIX 100 ML IV SCH ×4 (00:54→17:19)
[2016-09-05] MEDS: CHLORHEXIDINE GLUCONATE 2 % 1 PACK (2 CLOTHS) TOP SCH (00:55)
[2016-09-05] MEDS: HYDROmorphone HCL PF 1 MG/ML VIAL IV PUSH PRN (01:18)
[2016-09-05] MEDS: ACETAMINOPHEN 325 MG TAB PO SCH ×4 (03:42→20:57)
[2016-09-05] MEDS: INSULIN NovoLIN REGULAR SUPPLEMENTAL SCALE SQ SCH ×6 (03:49→20:00)
[2016-09-05] MEDS: HEPARIN SODIUM - SQ 10,000 UNITS/ML VIAL SQ SCH ×3 (06:17→20:57)
[2016-09-05 07:04] LABS: HEMATOCRIT 23.8 % (39.0-51.0); MEAN CELL VOLUME 90.7 FL (80.0-100.0); MEAN CORPUSCULAR HEMOGLOBIN 31.7 PG (27.0-34.0); MEAN CORPUSCULAR HGB CONC 34.9 % (32.0-36.0); PLATELET COUNT 385 TH/MM3 (150-450); RED BLOOD COUNT 2.62 MIL/MM3 (4.50-5.90); RED CELL DISTRIBUTION WIDTH 12.5 % (11.6-17.2); REVIEW FLAG FINAL; WHITE BLOOD COUNT 16.9 TH/MM3 (4.0-11.0)
[2016-09-05 07:22] LABS: BICARBONATE 27.8 MEQ/L (21.0-32.0); POTASSIUM 3.2 MEQ/L (3.5-5.1)
[2016-09-05 08:00] VITALS: BP 122/70; PULSE 81; RESP 18; TEMP 97.6; O2SAT 97
[2016-09-05] MEDS: DOCUSATE SODIUM 50 MG/SENNA 8.6 MG TAB PO SCH ×2 (08:23→20:56)
[2016-09-05] MEDS: TAMSULOSIN HCL 0.4 MG CAP PO SCH (08:23)
[2016-09-05] MEDS: SODIUM CHLORIDE 0.9% FLUSH 5 ML FLUSH IV FLUSH SCH ×2 (08:25→20:55)
--- NOTE | 2016-09-05 08:45 | HHI.PR ---
Subjective Remarks This is a very pleasant 51 y/o Male who was admitted due to flulike symptoms and scrotal swelling, erythema and edema, concern for necrotizing soft tissue infection, tachycardic and hypotensive seen by employee relations specialist, improved after IV fluid resuscitation, on Vancomycin and Zosyn and Clindamycin on admission. has Tobacco dependence, patient stable discussed with nurse Miss Gill he is receiving replacement for potassium no new issues no Nausea, vomit or diarrhea had Wound care today. Objective Vital Signs Date Time Temp Pulse Resp B/P Pulse Ox O2 Delivery O2 Flow Rate FiO2 09/05/16 08:00 97.6 81 18 122/70 97 09/05/16 00:00 98.7 88 20 141/79 96 09/04/16 20:00 98.6 94 20 145/76 97 09/04/16 16:00 97.9 82 18 131/76 97 09/04/16 12:00 97.9 84 19 128/78 97 I/O 09/04/16 09/04/16 09/04/16 09/05/16 09/05/16 09/05/16 07:00 15:00 23:00 07:00 15:00 23:00 Intake Total 820 ml 480 ml 480 ml 720 ml Output Total 700 ml 1050 ml 1450 ml 1350 ml Balance 120 ml -570 ml -970 ml -630 ml Intake Oral 720 ml 480 ml 480 ml 720 ml IV Total 100 ml Output Urine Total 700 ml 1050 ml 1450 ml 1350 ml # Bowel Movements 1 0 Result Diagram: 09/05/16 0535 09/05/16 0535 Imaging Last Impressions Abdomen/Pelvis CT 08/31/16 1308 Signed Impressions: Service Date/Time: Wednesday, August 31, 2016 13:36 - CONCLUSION: Significant air within the scrotum with soft tissue inflammation and skin thickening. Charlie's necrotizing fasciitis can have this appearance. I do not see any evidence of bowel or significant inguinal hernia. Triston Euceda MD Chest X-Ray 08/31/16 0000 Signed Impressions: Service Date/Time: Wednesday, August 31, 2016 18:32 - CONCLUSION: Left internal jugular central venous catheter in good position. No evidence of pneumothorax. 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 Other Results Laboratory Tests Test 08/31/16 09/02/16 09/03/16 09/04/16 23:00 04:40 03:25 04:00 Nasal Screen MRSA (PCR) NEGATIVE Protein Corrected Calcium 8.7 MG/DL Total Protein 4.8 GM/DL Hemoglobin A1c 8.8 % Vancomycin Level Trough 14.3 MCG/ML Test 09/05/16 05:35 White Blood Count 16.9 TH/MM3 Red Blood Count 2.62 MIL/MM3 Hemoglobin 8.3 GM/DL Hematocrit 23.8 % Mean Corpuscular Volume 90.7 FL Mean Corpuscular Hemoglobin 31.7 PG Mean Corpuscular Hemoglobin 34.9 % Concent Red Cell Distribution Width 12.5 % Platelet Count 385 TH/MM3 Mean Platelet Volume 8.0 FL Sodium Level 136 MEQ/L Potassium Level 3.2 MEQ/L Chloride Level 101 MEQ/L Carbon Dioxide Level 27.8 MEQ/L Anion Gap 7 MEQ/L Blood Urea Nitrogen 7 MG/DL Creatinine 0.95 MG/DL Estimat Glomerular Filtration 84 ML/MIN Rate Random Glucose 78 MG/DL Calcium Level 8.1 MG/DL Objective Remarks GENERAL: No Distress. HEENT: Normocephalic. Atraumatic. Pupils equal, reactive, round, conjugate. NECK:. Trachea is midline. There is no JVD. CHEST: Equal chest rise. Clear to auscultation. SPO2 91% on room air. CARDIOVASCULAR: Regular rate and rhythm, no Murmurs ABDOMEN: Soft, nontender, nondistended. No guarding. : significant scrotal edema with erythema, very tender to palpation, indurated. MUSCULOSKELETAL: no peripheral edema. distal pulses 2+ NEUROLOGICAL: Alert and oriented x 3, No focal deficits. Medications and IVs Current Medications Medications (Trade) Dose Ordered Sig/Matt Route Start Time Stop Time Status Last Admin (Zosyn 4.5 Gm Premix) 100 ml @ 200 mls/hr Q6H IV 08/31/16 18:00 09/05/16 06:17 (D50w (Vial) Inj) 25 ml UNSCH PRN IV PUSH 08/31/16 14:30 (NovoLIN R SUPPLEMENTAL SCALE) 1 Q4HR SQ 08/31/16 16:00 09/05/16 00:00 (NS Flush) 2 ml UNSCH PRN IV FLUSH 08/31/16 14:30 08/31/16 15:33 (NS Flush) 2 ml BID IV FLUSH 08/31/16 21:00 09/05/16 08:25 (Zofran Inj) 4 mg Q6H PRN IV 08/31/16 18:00 (Saima-Colace) 2 tab BID PO 08/31/16 21:00 09/05/16 08:23 Miscellaneous Information 1 Q361D XX 08/31/16 14:30 (Chlorhexidine 2% Cloth) 3 pack Taper DAILY@04 TOP 09/01/16 04:00 08/28/17 03:59 09/02/16 03:02 (Chlorhexidine 2% Cloth) 3 pack UNSCH PRN TOP 08/31/16 14:30 (Flomax) 0.4 mg DAILY PO 09/01/16 09:00 09/05/16 08:23 (Narcan Inj) 0.4 mg UNSCH PRN IV 08/31/16 22:15 (Heparin Inj) 5,000 units Q8HR SQ 09/02/16 14:00 09/05/16 06:17 (Tylenol) 650 mg Q6H PO 09/02/16 09:00 09/05/16 08:23 (Dilaudid Pf Inj) 0.5 mg Q4H PRN IV PUSH 09/02/16 07:45 09/05/16 01:18 (Roxicodone) 5 mg Q4H PRN PO 09/02/16 07:45 09/03/16 22:21 A/P Assessment and Plan 1. Sepsis present on admission secondary to Charlie's Gangrene, on Zosyn IV, Vancomycin, Clindamycin. discontinued Vancomycin and Clindamycin by ID specialist and continued on Zosyn and follow next week. 2. 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 Diabetes mellitus, hemoglobin A1C 8.8 continue sliding Scale 4. Electrolyte derangement replaced potassium today 3.2 giving 80 meq of Potassium chloride and following. 5. Constipation given lactulose Improved. 6. RENATA improved. Follow laboratory tomorrow. DVT prophylaxis with Heparin. Discussed with patient and nurse Miss Gill, I will continue present care and follow the Specialists recommendations for discharge early during the week, manager clinic for discharge, the patient is ambulatory. Discharge Planning Expected to Discharge Tomorrow. Romie Arredondo MD Sep 05, 2016 08:45
[2016-09-05] MEDS: POTASSIUM CHLORIDE 20 MEQ CONTROLLED RELEASE TAB PO SCH ×4 (09:42→16:23)
[2016-09-05 12:00] VITALS: BP 126/73; PULSE 84; RESP 18; TEMP 97.7; O2SAT 98
[2016-09-05 16:00] VITALS: BP 123/77; PULSE 85; RESP 18; TEMP 97.7; O2SAT 98
[2016-09-05 20:00] VITALS: BP 145/84; PULSE 86; RESP 20; TEMP 99.4; O2SAT 96
[2016-09-06] MEDS: ACETAMINOPHEN 325 MG TAB PO SCH ×4 (02:44→21:02)
[2016-09-06] MEDS: CHLORHEXIDINE GLUCONATE 2 % 1 PACK (2 CLOTHS) TOP SCH ×2 (02:45→21:03)
[2016-09-06] MEDS: HYDROmorphone HCL PF 1 MG/ML VIAL IV PUSH PRN ×2 (02:45→03:20)
[2016-09-06 03:25] VITALS: BP 132/72; PULSE 84; RESP 20; TEMP 98.6; O2SAT 96
[2016-09-06] MEDS: PIPERACIL-TAZO 4.5 GM PREMIX 100 ML IV SCH ×2 (05:52)
[2016-09-06] MEDS: HEPARIN SODIUM - SQ 10,000 UNITS/ML VIAL SQ SCH ×3 (05:52→21:03)
[2016-09-06] MEDS: INSULIN NovoLIN REGULAR SUPPLEMENTAL SCALE SQ SCH ×6 (06:01→21:37)
[2016-09-06 06:21] LABS: HEMATOCRIT 23.4 % (39.0-51.0); MEAN CELL VOLUME 91.5 FL (80.0-100.0); MEAN CORPUSCULAR HEMOGLOBIN 31.8 PG (27.0-34.0); MEAN CORPUSCULAR HGB CONC 34.8 % (32.0-36.0); PLATELET COUNT 449 TH/MM3 (150-450); RED BLOOD COUNT 2.56 MIL/MM3 (4.50-5.90); RED CELL DISTRIBUTION WIDTH 12.4 % (11.6-17.2); REVIEW FLAG FINAL; WHITE BLOOD COUNT 17.2 TH/MM3 (4.0-11.0)
[2016-09-06 06:44] LABS: BICARBONATE 26.5 MEQ/L (21.0-32.0); MAGNESIUM 1.8 MG/DL (1.5-2.5); POTASSIUM 3.6 MEQ/L (3.5-5.1)
[2016-09-06 08:00] VITALS: BP 138/80; PULSE 82; RESP 15; TEMP 95.5; O2SAT 98
[2016-09-06] MEDS: DOCUSATE SODIUM 50 MG/SENNA 8.6 MG TAB PO SCH ×2 (08:08→21:00)
[2016-09-06] MEDS: SODIUM CHLORIDE 0.9% FLUSH 5 ML FLUSH IV FLUSH SCH ×2 (08:09→21:00)
[2016-09-06] MEDS: TAMSULOSIN HCL 0.4 MG CAP PO SCH (08:09)
[2016-09-06] MEDS: AMPICILLIN-SULBACTAM INJ 3 GM in SODIUM CHLORIDE 0.9% INJ 100 ML IV SCH ×3 (08:09→20:59)
--- NOTE | 2016-09-06 09:07 | HHI.PR ---
Subjective Remarks This is a very pleasant 51 y/o Male who was admitted due to flulike symptoms and scrotal swelling, erythema and edema, concern for necrotizing soft tissue infection, tachycardic and hypotensive seen by therapeutic recreation specialist, improved after IV fluid resuscitation, on Vancomycin and Zosyn and Clindamycin on admission. has Tobacco dependence. asked for Banquet Supervisor,will get also Loom Cleaner on the case. Objective Vital Signs Date Time Temp Pulse Resp B/P Pulse Ox O2 Delivery O2 Flow Rate FiO2 09/06/16 08:00 95.5 82 15 138/80 98 09/06/16 03:25 98.6 84 20 132/72 96 09/05/16 20:00 99.4 86 20 145/84 96 09/05/16 16:00 97.7 85 18 123/77 98 09/05/16 12:00 97.7 84 18 126/73 98 I/O 09/05/16 09/05/16 09/05/16 09/06/16 09/06/16 09/06/16 07:00 15:00 23:00 07:00 15:00 23:00 Intake Total 720 ml 480 ml 240 ml 1200 ml Output Total 1350 ml 550 ml 1100 ml 1000 ml Balance -630 ml -70 ml -860 ml 200 ml Intake Oral 720 ml 480 ml 240 ml 1200 ml Output Urine Total 1350 ml 550 ml 1100 ml 1000 ml # Bowel Movements 1 Result Diagram: 09/06/16 0518 09/06/16 0518 Imaging Last Impressions Abdomen/Pelvis CT 08/31/16 1308 Signed Impressions: Service Date/Time: Wednesday, August 31, 2016 13:36 - CONCLUSION: Significant air within the scrotum with soft tissue inflammation and skin thickening. Charlie's necrotizing fasciitis can have this appearance. I do not see any evidence of bowel or significant inguinal hernia. Triston Euceda MD Chest X-Ray 08/31/16 0000 Signed Impressions: Service Date/Time: Wednesday, August 31, 2016 18:32 - CONCLUSION: Left internal jugular central venous catheter in good position. No evidence of pneumothorax. 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 Other Results Laboratory Tests Test 09/02/16 09/03/16 09/04/16 09/06/16 04:40 03:25 04:00 05:18 Protein Corrected Calcium 8.7 MG/DL Total Protein 4.8 GM/DL Hemoglobin A1c 8.8 % Vancomycin Level Trough 14.3 MCG/ML White Blood Count 17.2 TH/MM3 Red Blood Count 2.56 MIL/MM3 Hemoglobin 8.1 GM/DL Hematocrit 23.4 % Mean Corpuscular Volume 91.5 FL Mean Corpuscular Hemoglobin 31.8 PG Mean Corpuscular Hemoglobin 34.8 % Concent Red Cell Distribution Width 12.4 % Platelet Count 449 TH/MM3 Mean Platelet Volume 7.7 FL Sodium Level 137 MEQ/L Potassium Level 3.6 MEQ/L Chloride Level 101 MEQ/L Carbon Dioxide Level 26.5 MEQ/L Anion Gap 10 MEQ/L Blood Urea Nitrogen 8 MG/DL Creatinine 0.99 MG/DL Estimat Glomerular Filtration 80 ML/MIN Rate Random Glucose 139 MG/DL Calcium Level 7.7 MG/DL Magnesium Level 1.8 MG/DL Objective Remarks GENERAL: No Distress. HEENT: Normocephalic. Atraumatic. Pupils equal, reactive, round, conjugate. NECK:. Trachea is midline. There is no JVD. CHEST: Equal chest rise. Clear to auscultation. SPO2 91% on room air. CARDIOVASCULAR: Regular rate and rhythm, no Murmurs ABDOMEN: Soft, nontender, nondistended. No guarding. : significant scrotal edema with erythema, very tender to palpation, indurated. MUSCULOSKELETAL: no peripheral edema. distal pulses 2+ NEUROLOGICAL: Alert and oriented x 3, No focal deficits. Medications and IVs Current Medications Medications (Trade) Dose Ordered Sig/Matt Route Start Time Stop Time Status Last Admin (D50w (Vial) Inj) 25 ml UNSCH PRN IV PUSH 08/31/16 14:30 (NovoLIN R SUPPLEMENTAL SCALE) 1 Q4HR SQ 08/31/16 16:00 09/06/16 06:01 (NS Flush) 2 ml UNSCH PRN IV FLUSH 08/31/16 14:30 08/31/16 15:33 (NS Flush) 2 ml BID IV FLUSH 08/31/16 21:00 09/06/16 08:09 (Zofran Inj) 4 mg Q6H PRN IV 08/31/16 18:00 (Saima-Colace) 2 tab BID PO 08/31/16 21:00 09/06/16 08:08 Miscellaneous Information 1 Q361D XX 08/31/16 14:30 (Chlorhexidine 2% Cloth) Taper DAILY@04 TOP 09/01/16 04:00 08/28/17 03:59 09/02/16 03:02 (Chlorhexidine 2% Cloth) 3 pack UNSCH PRN TOP 08/31/16 14:30 (Flomax) 0.4 mg DAILY PO 09/01/16 09:00 09/06/16 08:09 (Narcan Inj) 0.4 mg UNSCH PRN IV 08/31/16 22:15 (Heparin Inj) 5,000 units Q8HR SQ 09/02/16 14:00 09/06/16 05:52 (Tylenol) 650 mg Q6H PO 09/02/16 09:00 09/06/16 08:08 (Dilaudid Pf Inj) 0.5 mg Q4H PRN IV PUSH 09/02/16 07:45 09/06/16 03:20 Oxycodone HCl 5 mg 5 mg Q4H PRN PO 09/02/16 07:45 09/06/16 08:08 (Unasyn Inj/NS Inj) 100 ml @ 200 mls/hr Q6H IV 09/06/16 08:00 09/06/16 08:09 A/P Assessment and Plan 1. Sepsis present on admission secondary to Charlie's Gangrene, on Zosyn IV, Vancomycin, Clindamycin. discontinued Vancomycin and Clindamycin by ID specialist and continued on Zosyn, awaiting for ID specialist to recommend plan of care. 2. 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 continue wound care. 3. Diabetes mellitus, hemoglobin A1C 8.8 continue sliding Scale, controlled asked for Banquet Supervisor. 4. Electrolyte derangement replaced and following. 5. Constipation given lactulose Improved. 6. RENATA improved. Follow laboratory tomorrow. DVT prophylaxis with Heparin. Discussed with patient and nurse Miss Gill, I will continue present care and follow the Specialists recommendations for discharge early during the week, plant quality manager for discharge, the patient is ambulatory. Discharge Planning Awaiting to discuss with ID specialist to get recommendations about plan of care. Romie Arredondo MD Sep 06, 2016 09:07
[2016-09-06] MEDS ORDERED: POTASSIUM CHLORIDE 20 MEQ CONTROLLED RELEASE TAB PO ONE (09:15)
[2016-09-06] MEDS: MAGNESIUM OXIDE 400 MG TAB PO SCH ×2 (10:44→21:02)
[2016-09-06 12:00] VITALS: BP 133/76; PULSE 87; RESP 12; TEMP 95.8; O2SAT 98
[2016-09-06 16:00] VITALS: BP 145/81; PULSE 87; RESP 12; TEMP 96.3; O2SAT 96
[2016-09-06 20:00] VITALS: BP 156/84; PULSE 84; RESP 20; TEMP 96.3; O2SAT 98
[2016-09-07] VITALS: BP 128/72; PULSE 71; RESP 21; TEMP 96.6; O2SAT 94
[2016-09-07] MEDS: INSULIN NovoLIN REGULAR SUPPLEMENTAL SCALE SQ SCH ×6 (00:29→20:58)
[2016-09-07] MEDS: AMPICILLIN-SULBACTAM INJ 3 GM in SODIUM CHLORIDE 0.9% INJ 100 ML IV SCH ×4 (02:08→19:48)
[2016-09-07] MEDS: ACETAMINOPHEN 325 MG TAB PO SCH ×4 (02:09→20:58)
[2016-09-07] MEDS: HYDROmorphone HCL PF 1 MG/ML VIAL IV PUSH PRN ×2 (02:10→11:04)
[2016-09-07] MEDS: SODIUM CHLORIDE 0.9% FLUSH 5 ML FLUSH IV FLUSH PRN (02:10)
[2016-09-07] MEDS: HEPARIN SODIUM - SQ 10,000 UNITS/ML VIAL SQ SCH ×3 (04:10→20:58)
[2016-09-07 06:08] LABS: HEMATOCRIT 23.7 % (39.0-51.0); MEAN CELL VOLUME 90.8 FL (80.0-100.0); MEAN CORPUSCULAR HEMOGLOBIN 31.1 PG (27.0-34.0); MEAN CORPUSCULAR HGB CONC 34.2 % (32.0-36.0); PLATELET COUNT 563 TH/MM3 (150-450); RED BLOOD COUNT 2.61 MIL/MM3 (4.50-5.90); RED CELL DISTRIBUTION WIDTH 12.8 % (11.6-17.2); REVIEW FLAG FINAL; WHITE BLOOD COUNT 15.1 TH/MM3 (4.0-11.0)
[2016-09-07 06:41] LABS: BICARBONATE 29.4 MEQ/L (21.0-32.0); POTASSIUM 4.1 MEQ/L (3.5-5.1)
[2016-09-07 08:00] VITALS: BP 120/79; PULSE 82; RESP 16; TEMP 97.6; O2SAT 97
[2016-09-07] MEDS: TAMSULOSIN HCL 0.4 MG CAP PO SCH (08:14)
[2016-09-07] MEDS: DOCUSATE SODIUM 50 MG/SENNA 8.6 MG TAB PO SCH ×2 (08:14→20:58)
[2016-09-07] MEDS: MAGNESIUM OXIDE 400 MG TAB PO SCH ×2 (08:14→20:58)
[2016-09-07] MEDS: SODIUM CHLORIDE 0.9% FLUSH 5 ML FLUSH IV FLUSH SCH ×2 (08:15→19:52)
[2016-09-07 12:00] VITALS: BP_SYST 124; BP_SYST 140; BP_DIAS 69; BP_DIAS 84; PULSE 80; PULSE 86; RESP 18; TEMP 96.8; TEMP 97.3; O2SAT 96; O2SAT 98
--- NOTE | 2016-09-07 12:39 | HHI.PR ---
Subjective Remarks This is a very pleasant 51 y/o Male who was admitted due to flulike symptoms and scrotal swelling, erythema and edema, concern for necrotizing soft tissue infection, tachycardic and hypotensive seen by peer specialist, improved after IV fluid resuscitation, on Vancomycin and Zosyn and Clindamycin on admission. has Tobacco dependence. Discussed with patient in the room, no Nausea, vomit or diarrhea, asked for [employer], discussed with nurse Miss Bynum, discussed with ID specialist Doctor Jay and with Car Tester antibiotics change to Ampicillin plus Sulbactam. Objective Vital Signs Date Time Temp Pulse Resp B/P Pulse Ox O2 Delivery O2 Flow Rate FiO2 09/07/16 11:34 17 09/07/16 09:14 18 09/07/16 08:00 97.6 82 16 120/79 97 09/07/16 00:00 96.6 71 21 128/72 94 09/06/16 20:00 96.3 84 20 156/84 98 09/06/16 16:00 96.3 87 12 145/81 96 I/O 09/06/16 09/06/16 09/06/16 09/07/16 09/07/16 09/07/16 07:00 15:00 23:00 07:00 15:00 23:00 Intake Total 1200 ml 440 ml 240 ml 240 ml Output Total 1000 ml 800 ml 850 ml 950 ml Balance 200 ml -360 ml -610 ml -710 ml Intake Oral 1200 ml 240 ml 240 ml 240 ml IV Total 200 ml Output Urine Total 1000 ml 800 ml 850 ml 950 ml # Bowel Movements 2 0 0 Result Diagram: 09/07/16 0512 09/07/16 0512 Imaging Last Impressions Abdomen/Pelvis CT 08/31/16 1308 Signed Impressions: Service Date/Time: Wednesday, August 31, 2016 13:36 - CONCLUSION: Significant air within the scrotum with soft tissue inflammation and skin thickening. Charlie's necrotizing fasciitis can have this appearance. I do not see any evidence of bowel or significant inguinal hernia. Triston Euceda MD Chest X-Ray 08/31/16 0000 Signed Impressions: Service Date/Time: Wednesday, August 31, 2016 18:32 - CONCLUSION: Left internal jugular central venous catheter in good position. No evidence of pneumothorax. 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 Other Results Laboratory Tests Test 09/03/16 09/04/16 09/06/16 09/07/16 03:25 04:00 05:18 05:12 Hemoglobin A1c 8.8 % Vancomycin Level Trough 14.3 MCG/ML Magnesium Level 1.8 MG/DL White Blood Count 15.1 TH/MM3 Red Blood Count 2.61 MIL/MM3 Hemoglobin 8.1 GM/DL Hematocrit 23.7 % Mean Corpuscular Volume 90.8 FL Mean Corpuscular Hemoglobin 31.1 PG Mean Corpuscular Hemoglobin 34.2 % Concent Red Cell Distribution Width 12.8 % Platelet Count 563 TH/MM3 Mean Platelet Volume 7.3 FL Sodium Level 138 MEQ/L Potassium Level 4.1 MEQ/L Chloride Level 103 MEQ/L Carbon Dioxide Level 29.4 MEQ/L Anion Gap 6 MEQ/L Blood Urea Nitrogen 7 MG/DL Creatinine 0.96 MG/DL Estimat Glomerular Filtration 83 ML/MIN Rate Random Glucose 110 MG/DL Calcium Level 8.4 MG/DL Objective Remarks GENERAL: No Distress. HEENT: Normocephalic. Atraumatic. Pupils equal, reactive, round, conjugate. NECK:. Trachea is midline. There is no JVD. CHEST: Equal chest rise. Clear to auscultation. SPO2 91% on room air. CARDIOVASCULAR: Regular rate and rhythm, no Murmurs ABDOMEN: Soft, nontender, nondistended. No guarding. : significant scrotal edema with erythema, very tender to palpation, indurated. MUSCULOSKELETAL: no peripheral edema. distal pulses 2+ NEUROLOGICAL: Alert and oriented x 3, No focal deficits. Medications and IVs Current Medications Medications (Trade) Dose Ordered Sig/Matt Route Start Time Stop Time Status Last Admin (D50w (Vial) Inj) 25 ml UNSCH PRN IV PUSH 08/31/16 14:30 (NovoLIN R SUPPLEMENTAL SCALE) 1 Q4HR SQ 08/31/16 16:00 09/07/16 11:50 (NS Flush) 2 ml UNSCH PRN IV FLUSH 08/31/16 14:30 09/07/16 02:10 (NS Flush) 2 ml BID IV FLUSH 2/28/17 21:00 09/07/16 08:15 (Zofran Inj) 4 mg Q6H PRN IV 08/31/16 18:00 (Saima-Colace) 2 tab BID PO 08/31/16 21:00 09/07/16 08:14 Miscellaneous Information 1 Q361D XX 08/31/16 14:30 (Chlorhexidine 2% Cloth) Taper DAILY@04 TOP 09/01/16 04:00 08/28/17 03:59 09/02/16 03:02 (Chlorhexidine 2% Cloth) 3 pack UNSCH PRN TOP 08/31/16 14:30 (Flomax) 0.4 mg DAILY PO 09/01/16 09:00 09/07/16 08:14 (Narcan Inj) 0.4 mg UNSCH PRN IV 08/31/16 22:15 (Heparin Inj) 5,000 units Q8HR SQ 09/02/16 14:00 09/07/16 04:10 (Tylenol) 650 mg Q6H PO 09/02/16 09:00 09/07/16 08:14 (Dilaudid Pf Inj) 0.5 mg Q4H PRN IV PUSH 09/02/16 07:45 09/07/16 11:04 Oxycodone HCl 5 mg 5 mg Q4H PRN PO 09/02/16 07:45 09/06/16 21:38 (Unasyn Inj/NS Inj) 100 ml @ 200 mls/hr Q6H IV 09/06/16 08:00 09/07/16 08:15 (Mag-Ox) 400 mg Q12HR PO 09/06/16 09:15 09/07/16 08:14 A/P Assessment and Plan 1. Sepsis present on admission secondary to Charlie's Gangrene, on Zosyn IV, Vancomycin, Clindamycin. discontinued Vancomycin and Clindamycin by ID specialist and continued on Zosyn, today seen by ID specialist Doctor Jay recommended to continue Ampicillin plus Sulbactam and continue Wound care she will discuss with Urology specialist doctor Fynes the patient may need further I and D at this time, also she comment the patient is recommended to be in house for another 3 to 4 weeks. 2. 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 continue wound care. may need further I and D. 3. Diabetes mellitus, hemoglobin A1C 8.8 continue sliding Scale, at this time working with Tapper Helper. 4. Electrolyte derangement replaced 5. Constipation given lactulose Improved. 6. RENATA improved. Follow laboratory tomorrow. DVT prophylaxis with Heparin. Discussed with patient and nurse Miss Bynum and with Tapper Helper As Always a pleasure to talk about cases received input and recommendations by Infectious Disease Specialist Doctor Kate Thompson Appreciated. Discharge Planning as per ID specialist will need In House management for the next 3 to 4 weeks. Romie Bhandari MD Sep 07, 2016 12:39
--- NOTE | 2016-09-07 14:04 | HHI.PR ---
Subjective Remarks denies any new issues. pain mostly with dressing changes. Denies fevers. Blood sugar well controlled. Ambulating. Objective Vital Signs Vital Signs Date Time Temp Pulse Resp B/P Pulse Ox O2 Delivery O2 Flow Rate FiO2 09/07/16 12:00 96.8 86 18 140/84 98 09/07/16 11:34 17 09/07/16 09:14 18 09/07/16 08:00 97.6 82 16 120/79 97 09/07/16 00:00 96.6 71 21 128/72 94 09/06/16 20:00 96.3 84 20 156/84 98 09/06/16 16:00 96.3 87 12 145/81 96 I/O 09/06/16 09/06/16 09/06/16 09/07/16 09/07/16 09/07/16 07:00 15:00 23:00 07:00 15:00 23:00 Intake Total 1200 ml 440 ml 240 ml 240 ml Output Total 1000 ml 800 ml 850 ml 950 ml Balance 200 ml -360 ml -610 ml -710 ml Intake Oral 1200 ml 240 ml 240 ml 240 ml IV Total 200 ml Output Urine Total 1000 ml 800 ml 850 ml 950 ml # Bowel Movements 2 0 0 Result Diagram: 09/07/16 0512 09/07/16 0512 Objective Remarks NAD. resting comfortably abd soft. scrotum wound appears pink, edges clean. healthy with some granulation tissue noted. No eschar seen. urine yellow Procedures 08/31/2015: Scrotal Exploration, Debridement of Scrotal Skin. 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 -Continue Galdamez catheter. -Consult wound care for any additional recommendations on dressing changes. -Antibiotics per ID -Wound continues to appear clean. Will hold off on debridement at this time. -Maintain good blood sugar control Efra French MD Sep 07, 2016 14:04
[2016-09-07 16:00] VITALS: BP 135/80; PULSE 82; RESP 17; TEMP 97.5; O2SAT 96
[2016-09-07 20:00] VITALS: BP 155/82; PULSE 72; RESP 16; TEMP 97.6; O2SAT 97
--- NOTE | 2016-09-07 20:15 | HHI.IDPN ---
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 Overnight events reviewed. No fever No rash No diarrhea Antibiotics Unasyn IV Lines Line sites with no e.o infection Past Medical History reviewed Allergies: Coded Allergies: No Known Allergies (Unverified , 08/31/16) Objective . Vital Signs Date Time Temp Pulse Resp B/P Pulse Ox O2 Delivery O2 Flow Rate FiO2 09/07/16 16:00 97.5 82 17 135/80 96 09/07/16 15:03 18 09/07/16 14:52 18 09/07/16 12:00 96.8 86 18 140/84 98 09/07/16 11:34 17 09/07/16 08:00 97.6 82 16 120/79 97 09/07/16 00:00 96.6 71 21 128/72 94 09/06/16 09/06/16 09/07/16 15:00 23:00 07:00 Intake Total 440 ml 240 ml 240 ml Output Total 800 ml 850 ml 950 ml Balance -360 ml -610 ml -710 ml Intake Oral 240 ml 240 ml 240 ml IV Total 200 ml Output Urine Total 800 ml 850 ml 950 ml # Bowel Movements 2 0 0 . Laboratory Tests Test 09/06/16 09/07/16 05:18 05:12 White Blood Count 17.2 TH/MM3 15.1 TH/MM3 Red Blood Count 2.56 MIL/MM3 2.61 MIL/MM3 Hemoglobin 8.1 GM/DL 8.1 GM/DL Hematocrit 23.4 % 23.7 % Mean Corpuscular Volume 91.5 FL 90.8 FL Mean Corpuscular Hemoglobin 31.8 PG 31.1 PG Mean Corpuscular Hemoglobin 34.8 % 34.2 % Concent Red Cell Distribution Width 12.4 % 12.8 % Platelet Count 449 TH/MM3 563 TH/MM3 Mean Platelet Volume 7.7 FL 7.3 FL Laboratory Tests Test 09/06/16 09/07/16 05:18 05:12 Sodium Level 137 MEQ/L 138 MEQ/L Potassium Level 3.6 MEQ/L 4.1 MEQ/L Chloride Level 101 MEQ/L 103 MEQ/L Carbon Dioxide Level 26.5 MEQ/L 29.4 MEQ/L Anion Gap 10 MEQ/L 6 MEQ/L Blood Urea Nitrogen 8 MG/DL 7 MG/DL Creatinine 0.99 MG/DL 0.96 MG/DL Estimat Glomerular Filtration 80 ML/MIN 83 ML/MIN Rate Random Glucose 139 MG/DL 110 MG/DL Calcium Level 7.7 MG/DL 8.4 MG/DL Magnesium Level 1.8 MG/DL Imaging Last Impressions Abdomen/Pelvis CT 08/31/16 1308 Signed Impressions: Service Date/Time: Wednesday, August 31, 2016 13:36 - CONCLUSION: Significant air within the scrotum with soft tissue inflammation and skin thickening. Charlie's necrotizing fasciitis can have this appearance. I do not see any evidence of bowel or significant inguinal hernia. Triston Euceda MD Chest X-Ray 08/31/16 0000 Signed Impressions: Service Date/Time: Wednesday, August 31, 2016 18:32 - CONCLUSION: Left internal jugular central venous catheter in good position. No evidence of pneumothorax. Felix Caballero MD Physical Exam GENERAL: This is a well-nourished, well-developed patient, in no apparent distress. SKIN: No rashes, ecchymoses or lesions. Cool and dry. HEAD: Atraumatic. Normocephalic. No temporal or scalp tenderness. EYES: Pupils equal round and reactive. Extraocular motions intact. No scleral icterus. No injection or drainage. ENT: Nose without bleeding, purulent drainage or septal hematoma. Throat without erythema, tonsillar hypertrophy or exudate. Uvula midline. Airway patent. NECK: Trachea midline. Supple, nontender, no meningeal signs. CARDIOVASCULAR: Heart sounds audible. No murmur appreciated. RESPIRATORY: Clear to auscultation. Breath sounds equal bilaterally. GASTROINTESTINAL: Abdomen soft, non-tender, nondistended. No hepato-splenomegaly , or palpable masses. No guarding. MUSCULOSKELETAL: Extremities without clubbing, cyanosis, or edema. No joint tenderness, effusion, or edema noted. No calf tenderness. Negative Homans sign bilaterally. NEUROLOGICAL: Awake and alert. Grossly nonfocal. Genitourinary examination: Surgically debrided area of the wound appeared to have a clean base with some areas of necrosis noted in one corner. Psych cooperative IV line sites with no evidence of infection. Assessment & Plan Remarks Sepsis present on admission Source likely Charlie's gangrene New onset diabetes mellitus Recommendations Follow blood cultures. Continue Unasyn IV plan on 4 weeks IV followed by 2 wks oral depending on clinical response. Not ready for discharge. Needs extensive wound care and packing assistance. Needs reassessment by Urology . Has Galdamez in place. Needs eval by to opine if secondary skin flap closure planned. If clinically deteriorates on this regimen will reassess. Will follow in next few days. yas noble, RN, case management and Manny CALDERÓN. Kate Thompson MD Sep 07, 2016 20:15
[2016-09-08] VITALS: BP 138/83; PULSE 92; RESP 16; TEMP 98.3; O2SAT 96
[2016-09-08] MEDS: CHLORHEXIDINE GLUCONATE 2 % 1 PACK (2 CLOTHS) TOP SCH ×2 (00:33→20:29)
[2016-09-08] MEDS: ACETAMINOPHEN 325 MG TAB PO SCH ×4 (03:44→20:28)
[2016-09-08] MEDS: AMPICILLIN-SULBACTAM INJ 3 GM in SODIUM CHLORIDE 0.9% INJ 100 ML IV SCH ×4 (03:45→20:27)
[2016-09-08] MEDS: INSULIN NovoLIN REGULAR SUPPLEMENTAL SCALE SQ SCH ×6 (04:00→20:29)
[2016-09-08] MEDS: HEPARIN SODIUM - SQ 10,000 UNITS/ML VIAL SQ SCH ×3 (06:35→20:29)
[2016-09-08 08:00] VITALS: BP 142/76; PULSE 85; RESP 17; TEMP 97; O2SAT 97
[2016-09-08] MEDS: SODIUM CHLORIDE 0.9% FLUSH 5 ML FLUSH IV FLUSH SCH ×2 (08:12→20:28)
[2016-09-08] MEDS: TAMSULOSIN HCL 0.4 MG CAP PO SCH (08:12)
[2016-09-08] MEDS: DOCUSATE SODIUM 50 MG/SENNA 8.6 MG TAB PO SCH ×2 (08:12→20:28)
[2016-09-08] MEDS: MAGNESIUM OXIDE 400 MG TAB PO SCH ×2 (08:12→20:28)
--- NOTE | 2016-09-08 09:27 | HHI.PR ---
Subjective Remarks This is a very pleasant 51 y/o Male who was admitted due to flulike symptoms and scrotal swelling, erythema and edema, concern for necrotizing soft tissue infection, tachycardic and hypotensive seen by medical staff specialist, improved after IV fluid resuscitation, on Vancomycin and Zosyn and Clindamycin on admission. has Tobacco dependence. Discussed with patient in the room, no Nausea, vomit or diarrhea, asked for Clinical Science Liaison, Seen in the room status post Wound care performed, seen with nurse Miss Whitt, no new issues, denies Nausea, vomit or diarrhea, continue present care, no further I and D as per Urology specialist. Objective Vital Signs Date Time Temp Pulse Resp B/P Pulse Ox O2 Delivery O2 Flow Rate FiO2 09/08/16 08:00 97.0 85 17 142/76 97 09/08/16 00:00 98.3 92 16 138/83 96 09/07/16 20:00 97.6 72 16 155/82 97 09/07/16 16:00 97.5 82 17 135/80 96 09/07/16 15:03 18 09/07/16 14:52 18 09/07/16 12:00 96.8 86 18 140/84 98 09/07/16 11:34 17 I/O 09/07/16 09/07/16 09/07/16 09/08/16 09/08/16 09/08/16 07:00 15:00 23:00 07:00 15:00 23:00 Intake Total 240 ml 833 ml 460 ml 410 ml Output Total 950 ml 950 ml 750 ml 400 ml Balance -710 ml -117 ml -290 ml 10 ml Intake Oral 240 ml 500 ml 360 ml 360 ml IV Total 333 ml 100 ml 50 ml Output Urine Total 950 ml 950 ml 750 ml 400 ml # Bowel Movements 0 0 0 0 Result Diagram: 09/07/16 0512 09/07/16 0512 Imaging Last Impressions Abdomen/Pelvis CT 08/31/16 1308 Signed Impressions: Service Date/Time: Wednesday, August 31, 2016 13:36 - CONCLUSION: Significant air within the scrotum with soft tissue inflammation and skin thickening. Charlie's necrotizing fasciitis can have this appearance. I do not see any evidence of bowel or significant inguinal hernia. Triston Euceda MD Chest X-Ray 08/31/16 0000 Signed Impressions: Service Date/Time: Wednesday, August 31, 2016 18:32 - CONCLUSION: Left internal jugular central venous catheter in good position. No evidence of pneumothorax. 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 Other Results Laboratory Tests Test 09/04/16 09/06/16 09/07/16 04:00 05:18 05:12 Vancomycin Level Trough 14.3 MCG/ML Magnesium Level 1.8 MG/DL White Blood Count 15.1 TH/MM3 Red Blood Count 2.61 MIL/MM3 Hemoglobin 8.1 GM/DL Hematocrit 23.7 % Mean Corpuscular Volume 90.8 FL Mean Corpuscular Hemoglobin 31.1 PG Mean Corpuscular Hemoglobin 34.2 % Concent Red Cell Distribution Width 12.8 % Platelet Count 563 TH/MM3 Mean Platelet Volume 7.3 FL Sodium Level 138 MEQ/L Potassium Level 4.1 MEQ/L Chloride Level 103 MEQ/L Carbon Dioxide Level 29.4 MEQ/L Anion Gap 6 MEQ/L Blood Urea Nitrogen 7 MG/DL Creatinine 0.96 MG/DL Estimat Glomerular Filtration 83 ML/MIN Rate Random Glucose 110 MG/DL Calcium Level 8.4 MG/DL Objective Remarks GENERAL: No Distress. HEENT: Normocephalic. Atraumatic. Pupils equal, reactive, round, conjugate. NECK:. Trachea is midline. There is no JVD. CHEST: Equal chest rise. Clear to auscultation. SPO2 91% on room air. CARDIOVASCULAR: Regular rate and rhythm, no Murmurs ABDOMEN: Soft, nontender, nondistended. No guarding. : Open wound evaluated today had wound care. MUSCULOSKELETAL: no peripheral edema. distal pulses 2+ NEUROLOGICAL: Alert and oriented x 3, No focal deficits. Medications and IVs Current Medications Medications (Trade) Dose Ordered Sig/Matt Route Start Time Stop Time Status Last Admin (D50w (Vial) Inj) 25 ml UNSCH PRN IV PUSH 08/31/16 14:30 (NovoLIN R SUPPLEMENTAL SCALE) 1 Q4HR SQ 08/31/16 16:00 09/07/16 20:58 (NS Flush) 2 ml UNSCH PRN IV FLUSH 08/31/16 14:30 09/07/16 02:10 (NS Flush) 2 ml BID IV FLUSH 08/31/16 21:00 09/08/16 08:12 (Zofran Inj) 4 mg Q6H PRN IV 08/31/16 18:00 (Saima-Colace) 2 tab BID PO 08/31/16 21:00 09/08/16 08:12 Miscellaneous Information 1 Q361D XX 08/31/16 14:30 (Chlorhexidine 2% Cloth) Taper DAILY@04 TOP 09/01/16 04:00 08/28/17 03:59 09/02/16 03:02 (Chlorhexidine 2% Cloth) 3 pack UNSCH PRN TOP 08/31/16 14:30 (Flomax) 0.4 mg DAILY PO 09/01/16 09:00 09/08/16 08:12 (Narcan Inj) 0.4 mg UNSCH PRN IV 08/31/16 22:15 (Heparin Inj) 5,000 units Q8HR SQ 09/02/16 14:00 09/08/16 06:35 (Tylenol) 650 mg Q6H PO 09/02/16 09:00 09/08/16 08:12 (Dilaudid Pf Inj) 0.5 mg Q4H PRN IV PUSH 09/02/16 07:45 09/07/16 11:04 Oxycodone HCl 5 mg 5 mg Q4H PRN PO 09/02/16 07:45 09/08/16 03:44 (Unasyn Inj/NS Inj) 100 ml @ 200 mls/hr Q6H IV 09/06/16 08:00 09/08/16 08:12 (Mag-Ox) 400 mg Q12HR PO 09/06/16 09:15 09/08/16 08:12 A/P Assessment and Plan 1. Sepsis present on admission secondary to Charlie's Gangrene, on Zosyn IV, Vancomycin, Clindamycin. discontinued Vancomycin and Clindamycin by ID specialist and continued on Zosyn, today seen by ID specialist Doctor Thomspon recommended to continue Ampicillin plus Sulbactam and continue Wound care seen by Urology specialist no further I and D Doctor Fynes Following, and also say he will need to be here for the next 3 to 4 weeks. 2. 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 continue wound care. may need further I and D. 3. Diabetes mellitus, hemoglobin A1C 8.8 continue sliding Scale, added Levemir and continue Sliding scale. 4. Electrolyte derangement replaced 5. Constipation given lactulose Improved. 6. RENATA improved. Follow laboratory tomorrow. DVT prophylaxis with Heparin. Discussed with patient and nurse Miss Whitt gary. Discharge Planning as per ID specialist will need In House management for the next 3 to 4 weeks. Romie Bhandari MD Sep 08, 2016 09:27 as per ID specialist will need In House management for the next 3 to 4 weeks. Romie Bhandari MD Sep 08, 2016 09:27
[2016-09-08] MEDS: HYDROmorphone HCL PF 1 MG/ML VIAL IV PUSH PRN (10:00)
[2016-09-08] MEDS ORDERED: DEXTROSE 50% IN WATER 50 ML VIAL(D50) IV PUSH PRN (10:30)
[2016-09-08] MEDS ORDERED: GLUCAGON 1 MG/ML VIAL OTHER PRN (10:30)
[2016-09-08 12:00] VITALS: BP 143/83; PULSE 73; RESP 18; TEMP 97.8; O2SAT 97
[2016-09-08] MEDS: INSULIN DETEMIR 100 UNITS/ML VIAL SQ SCH ×2 (14:47→20:28)
[2016-09-08 16:00] VITALS: BP 153/82; PULSE 81; RESP 18; TEMP 97.4; O2SAT 97
[2016-09-08 20:00] VITALS: BP 133/75; PULSE 82; RESP 16; TEMP 97.8; O2SAT 97
[2016-09-09] VITALS: BP 139/75; PULSE 85; RESP 16; TEMP 97.5; O2SAT 98
[2016-09-09] MEDS: AMPICILLIN-SULBACTAM INJ 3 GM in SODIUM CHLORIDE 0.9% INJ 100 ML IV SCH ×4 (02:20→20:07)
[2016-09-09] MEDS: ACETAMINOPHEN 325 MG TAB PO SCH ×4 (02:20→20:08)
[2016-09-09] MEDS: HEPARIN SODIUM - SQ 10,000 UNITS/ML VIAL SQ SCH ×3 (04:30→20:09)
[2016-09-09] MEDS: INSULIN NovoLIN REGULAR SUPPLEMENTAL SCALE SQ SCH ×4 (06:14→20:08)
[2016-09-09 08:00] VITALS: BP 141/84; PULSE 77; RESP 19; TEMP 97.1; O2SAT 97
[2016-09-09] MEDS: COLLAGENASE OINT 30 GM TUBE TOP SCH (09:00)
[2016-09-09] MEDS: DOCUSATE SODIUM 50 MG/SENNA 8.6 MG TAB PO SCH ×2 (09:03→20:07)
[2016-09-09] MEDS: TAMSULOSIN HCL 0.4 MG CAP PO SCH (09:03)
[2016-09-09] MEDS: MAGNESIUM OXIDE 400 MG TAB PO SCH ×2 (09:04→20:07)
[2016-09-09] MEDS: INSULIN DETEMIR 100 UNITS/ML VIAL SQ SCH ×2 (09:05→20:08)
[2016-09-09] MEDS: SODIUM CHLORIDE 0.9% FLUSH 5 ML FLUSH IV FLUSH SCH ×2 (09:05→20:07)
--- NOTE | 2016-09-09 11:05 | HHI.PR ---
Subjective Remarks This is a very pleasant 51 y/o Male who was admitted due to flulike symptoms and scrotal swelling, erythema and edema, concern for necrotizing soft tissue infection, tachycardic and hypotensive seen by marketing content specialist, improved after IV fluid resuscitation, on Vancomycin and Zosyn and Clindamycin on admission. has Tobacco dependence. Discussed with patient in the room, no Nausea, vomit or diarrhea, asked for Client Administrator. Seen in his bedroom No Nausea, vomit or diarrhea. Objective Vital Signs Date Time Temp Pulse Resp B/P Pulse Ox O2 Delivery O2 Flow Rate FiO2 09/09/16 08:00 97.1 77 19 141/84 97 09/09/16 00:00 97.5 85 16 139/75 98 09/08/16 20:00 97.8 82 16 133/75 97 09/08/16 16:00 97.4 81 18 153/82 97 09/08/16 15:47 18 09/08/16 12:00 97.8 73 18 143/83 97 I/O 09/08/16 09/08/16 09/08/16 09/09/16 09/09/16 09/09/16 07:00 15:00 23:00 07:00 15:00 23:00 Intake Total 410 ml 575 ml 680 ml 240 ml 120 ml Output Total 400 ml 1225 ml 1500 ml 1500 ml Balance 10 ml -650 ml -820 ml -1260 ml 120 ml Intake Oral 360 ml 475 ml 480 ml 240 ml 120 ml IV Total 50 ml 100 ml 200 ml Output Urine Total 400 ml 1225 ml 1500 ml 1500 ml # Bowel Movements 0 1 0 0 Result Diagram: 09/07/16 0512 09/09/16 0508 Imaging Last Impressions Abdomen/Pelvis CT 08/31/16 1308 Signed Impressions: Service Date/Time: Wednesday, August 31, 2016 13:36 - CONCLUSION: Significant air within the scrotum with soft tissue inflammation and skin thickening. Charlie's necrotizing fasciitis can have this appearance. I do not see any evidence of bowel or significant inguinal hernia. Triston Euceda MD Chest X-Ray 08/31/16 0000 Signed Impressions: Service Date/Time: Wednesday, August 31, 2016 18:32 - CONCLUSION: Left internal jugular central venous catheter in good position. No evidence of pneumothorax. 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 Other Results Laboratory Tests Test 09/06/16 09/07/16 09/09/16 05:18 05:12 05:08 Magnesium Level 1.8 MG/DL White Blood Count 15.1 TH/MM3 Red Blood Count 2.61 MIL/MM3 Hemoglobin 8.1 GM/DL Hematocrit 23.7 % Mean Corpuscular Volume 90.8 FL Mean Corpuscular Hemoglobin 31.1 PG Mean Corpuscular Hemoglobin 34.2 % Concent Red Cell Distribution Width 12.8 % Platelet Count 563 TH/MM3 Mean Platelet Volume 7.3 FL Sodium Level 138 MEQ/L Potassium Level 4.1 MEQ/L Chloride Level 103 MEQ/L Carbon Dioxide Level 29.4 MEQ/L Anion Gap 6 MEQ/L Blood Urea Nitrogen 7 MG/DL Random Glucose 110 MG/DL Calcium Level 8.4 MG/DL Creatinine 0.99 MG/DL Estimat Glomerular Filtration 80 ML/MIN Rate Objective Remarks GENERAL: No Distress. HEENT: Normocephalic. Atraumatic. Pupils equal, reactive, round, conjugate. NECK:. Trachea is midline. There is no JVD. CHEST: Equal chest rise. Clear to auscultation. SPO2 91% on room air. CARDIOVASCULAR: Regular rate and rhythm, no Murmurs ABDOMEN: Soft, nontender, nondistended. No guarding. : Open wound evaluated today had wound care. MUSCULOSKELETAL: no peripheral edema. distal pulses 2+ NEUROLOGICAL: Alert and oriented x 3, No focal deficits. Medications and IVs Current Medications Medications (Trade) Dose Ordered Sig/Matt Route Start Time Stop Time Status Last Admin (NS Flush) 2 ml UNSCH PRN IV FLUSH 08/31/16 14:30 09/07/16 02:10 (NS Flush) 2 ml BID IV FLUSH 08/31/16 21:00 09/09/16 09:05 (Zofran Inj) 4 mg Q6H PRN IV 08/31/16 18:00 (Saima-Colace) 2 tab BID PO 08/31/16 21:00 09/09/16 09:03 Miscellaneous Information 1 Q361D XX 08/31/16 14:30 (Chlorhexidine 2% Cloth) Taper DAILY@04 TOP 09/01/16 04:00 08/28/17 03:59 09/02/16 03:02 (Chlorhexidine 2% Cloth) 3 pack UNSCH PRN TOP 08/31/16 14:30 (Flomax) 0.4 mg DAILY PO 09/01/16 09:00 09/09/16 09:03 (Narcan Inj) 0.4 mg UNSCH PRN IV 08/31/16 22:15 (Heparin Inj) 5,000 units Q8HR SQ 09/02/16 14:00 09/09/16 04:30 (Tylenol) 650 mg Q6H PO 09/02/16 09:00 09/09/16 09:04 (Dilaudid Pf Inj) 0.5 mg Q4H PRN IV PUSH 09/02/16 07:45 09/08/16 10:00 Oxycodone HCl 5 mg 5 mg Q4H PRN PO 09/02/16 07:45 09/08/16 18:10 (Unasyn Inj/NS Inj) 100 ml @ 200 mls/hr Q6H IV 09/06/16 08:00 09/09/16 09:03 (Mag-Ox) 400 mg Q12HR PO 09/06/16 09:15 09/09/16 09:04 (Levemir Inj) 10 units BID SQ 09/08/16 15:00 09/09/16 09:05 (D50w (Vial) Inj) 25 ml UNSCH PRN IV PUSH 09/08/16 10:30 (Glucagon Inj) 1 mg UNSCH PRN OTHER 09/08/16 10:30 (Santyl Oint) 1 applic DAILY TOP 09/09/16 09:00 09/09/16 09:00 A/P Assessment and Plan 1. Sepsis present on admission secondary to Charlie's Gangrene, on Zosyn IV, Vancomycin, Clindamycin. discontinued Vancomycin and Clindamycin by ID specialist and continued on Zosyn, today seen by ID specialist Doctor Jay recommended to continue Ampicillin plus Sulbactam and continue Wound care seen by Urology specialist no further I and D Doctor Fynes Following, and also say he will need to be here for the next 3 to 4 weeks. 2. 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 continue wound care. may need further I and D. 3. Diabetes mellitus, hemoglobin A1C 8.8 continue sliding Scale to Medium dose, Levemir reduced to 8 units BID. 4. Electrolyte derangement replaced 5. Constipation given lactulose Improved. 6. RENATA improved. Follow laboratory tomorrow. DVT prophylaxis with Heparin. Discussed with patient in the room. Discharge Planning as per ID specialist will need In House management for the next 3 to 4 weeks. Romie Bhandari MD Sep 09, 2016 11:05
[2016-09-09 12:00] VITALS: BP 134/82; PULSE 82; RESP 19; TEMP 98.2; O2SAT 96
[2016-09-09 16:00] VITALS: BP 144/74; PULSE 84; RESP 19; TEMP 98.7; O2SAT 96
[2016-09-09] MEDS: HYDROmorphone HCL PF 1 MG/ML VIAL IV PUSH PRN (17:17)
[2016-09-09 20:00] VITALS: BP 132/80; PULSE 85; RESP 20; TEMP 97.6; O2SAT 99
[2016-09-09] MEDS: CHLORHEXIDINE GLUCONATE 2 % 1 PACK (2 CLOTHS) TOP SCH (20:09)
[2016-09-10] VITALS: BP 139/80; PULSE 78; RESP 20; TEMP 97.8; O2SAT 98
[2016-09-10] MEDS: AMPICILLIN-SULBACTAM INJ 3 GM in SODIUM CHLORIDE 0.9% INJ 100 ML IV SCH ×4 (01:51→19:43)
[2016-09-10] MEDS: ACETAMINOPHEN 325 MG TAB PO SCH ×4 (01:52→19:44)
[2016-09-10] MEDS: HEPARIN SODIUM - SQ 10,000 UNITS/ML VIAL SQ SCH ×3 (05:22→19:45)
[2016-09-10] MEDS: INSULIN NovoLIN REGULAR SUPPLEMENTAL SCALE SQ SCH ×4 (05:27→19:45)
--- NOTE | 2016-09-10 07:35 | HHI.PR ---
Subjective Remarks This is a very pleasant 51 y/o Male who was admitted due to flulike symptoms and scrotal swelling, erythema and edema, concern for necrotizing soft tissue infection, tachycardic and hypotensive seen by corporate specialist, improved after IV fluid resuscitation, on Vancomycin and Zosyn and Clindamycin on admission. has Tobacco dependence. Discussed with patient in the room, no Nausea, vomit or diarrhea, asked for Small Package And Bundle Sorter Clerk. Patient stable, I had the pleasure to talk with ID specialist doctor Kate Thompson and she will see the patient PRN he will need to be in house for 3 to 4 weeks. No nausea, vomit or diarrhea. Objective Vital Signs Date Time Temp Pulse Resp B/P Pulse Ox O2 Delivery O2 Flow Rate FiO2 09/10/16 00:00 97.8 78 20 139/80 98 09/09/16 20:00 97.6 85 20 132/80 99 09/09/16 16:00 98.7 84 19 144/74 96 09/09/16 12:00 98.2 82 19 134/82 96 09/09/16 08:00 97.1 77 19 141/84 97 I/O 09/09/16 09/09/16 09/09/16 09/10/16 09/10/16 09/10/16 07:00 15:00 23:00 07:00 15:00 23:00 Intake Total 240 ml 880 ml 240 ml 580 ml Output Total 1500 ml 1400 ml 750 ml 550 ml Balance -1260 ml -520 ml -510 ml 30 ml Intake Oral 240 ml 880 ml 240 ml 480 ml IV Total 100 ml Output Urine Total 1500 ml 1400 ml 750 ml 550 ml # Bowel Movements 0 0 Result Diagram: 09/07/16 0512 09/09/16 0508 Imaging Last Impressions Abdomen/Pelvis CT 08/31/16 1308 Signed Impressions: Service Date/Time: Wednesday, August 31, 2016 13:36 - CONCLUSION: Significant air within the scrotum with soft tissue inflammation and skin thickening. Charlie's necrotizing fasciitis can have this appearance. I do not see any evidence of bowel or significant inguinal hernia. Triston Euceda MD Chest X-Ray 08/31/16 0000 Signed Impressions: Service Date/Time: Wednesday, August 31, 2016 18:32 - CONCLUSION: Left internal jugular central venous catheter in good position. No evidence of pneumothorax. 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 Other Results Laboratory Tests Test 09/06/16 09/07/16 09/09/16 05:18 05:12 05:08 Magnesium Level 1.8 MG/DL White Blood Count 15.1 TH/MM3 Red Blood Count 2.61 MIL/MM3 Hemoglobin 8.1 GM/DL Hematocrit 23.7 % Mean Corpuscular Volume 90.8 FL Mean Corpuscular Hemoglobin 31.1 PG Mean Corpuscular Hemoglobin 34.2 % Concent Red Cell Distribution Width 12.8 % Platelet Count 563 TH/MM3 Mean Platelet Volume 7.3 FL Sodium Level 138 MEQ/L Potassium Level 4.1 MEQ/L Chloride Level 103 MEQ/L Carbon Dioxide Level 29.4 MEQ/L Anion Gap 6 MEQ/L Blood Urea Nitrogen 7 MG/DL Random Glucose 110 MG/DL Calcium Level 8.4 MG/DL Creatinine 0.99 MG/DL Estimat Glomerular Filtration 80 ML/MIN Rate Objective Remarks GENERAL: No Distress. HEENT: Normocephalic. Atraumatic. Pupils equal, reactive, round, conjugate. NECK:. Trachea is midline. There is no JVD. CHEST: Equal chest rise. Clear to auscultation. CARDIOVASCULAR: Regular rate and rhythm, no Murmurs ABDOMEN: Soft, nontender, nondistended. No guarding. : Open wound evaluated today had wound care. MUSCULOSKELETAL: No clubbing cyanosis or edema. NEUROLOGICAL: Alert and oriented x 3, No focal deficits. Medications and IVs Current Medications Medications (Trade) Dose Ordered Sig/Matt Route Start Time Stop Time Status Last Admin (NS Flush) 2 ml UNSCH PRN IV FLUSH 08/31/16 14:30 09/07/16 02:10 (NS Flush) 2 ml BID IV FLUSH 08/31/16 21:00 09/09/16 20:07 (Zofran Inj) 4 mg Q6H PRN IV 08/31/16 18:00 (Saima-Colace) 2 tab BID PO 08/31/16 21:00 09/09/16 20:07 Miscellaneous Information 1 Q361D XX 08/31/16 14:30 (Chlorhexidine 2% Cloth) Taper DAILY@04 TOP 09/01/16 04:00 08/28/17 03:59 09/02/16 03:02 (Chlorhexidine 2% Cloth) 3 pack UNSCH PRN TOP 08/31/16 14:30 (Flomax) 0.4 mg DAILY PO 09/01/16 09:00 09/09/16 09:03 (Narcan Inj) 0.4 mg UNSCH PRN IV 08/31/16 22:15 (Heparin Inj) 5,000 units Q8HR SQ 09/02/16 14:00 09/10/16 05:22 (Tylenol) 650 mg Q6H PO 09/02/16 09:00 09/10/16 01:52 (Dilaudid Pf Inj) 0.5 mg Q4H PRN IV PUSH 09/02/16 07:45 09/09/16 17:17 Oxycodone HCl 5 mg 5 mg Q4H PRN PO 09/02/16 07:45 09/08/16 18:10 (Unasyn Inj/NS Inj) 100 ml @ 200 mls/hr Q6H IV 09/06/16 08:00 09/10/16 01:51 (Mag-Ox) 400 mg Q12HR PO 09/06/16 09:15 09/09/16 20:07 (D50w (Vial) Inj) 25 ml UNSCH PRN IV PUSH 09/08/16 10:30 (Glucagon Inj) 1 mg UNSCH PRN OTHER 09/08/16 10:30 (Santyl Oint) 1 applic DAILY TOP 09/09/16 09:00 09/09/16 09:00 (Levemir Inj) 8 units BID SQ 09/09/16 21:00 09/09/16 20:08 A/P Assessment and Plan 1. Sepsis present on admission secondary to Charlie's Gangrene, on Zosyn IV, Vancomycin, Clindamycin. discontinued Vancomycin and Clindamycin by ID specialist and continued on Zosyn, today seen by ID specialist Doctor Jay recommended to continue Ampicillin plus Sulbactam and continue Wound care seen by Urology specialist no further I and D Doctor Fynes Following, and also say he will need to be here for the next 3 to 4 weeks. 2. 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 continue wound care. may need further I and D. 3. Diabetes mellitus, hemoglobin A1C 8.8 continue sliding Scale to Medium dose, Levemir reduced to 8 units BID. better control. 4. Electrolyte derangement replaced 5. Constipation given lactulose Improved. 6. RENATA improved. Follow laboratory tomorrow. DVT prophylaxis with Heparin. Discussed with patient in the room. Discussed with ID specialist Doctor Kate Thompson will follow patient PRN, the patient will need to be in house for some weeks. Discharge Planning as per ID specialist will need In House management for the next 3 to 4 weeks. Romie Bhandari MD Sep 10, 2016 07:35
[2016-09-10 08:00] VITALS: BP 138/82; PULSE 77; RESP 19; TEMP 97.8; O2SAT 98
[2016-09-10] MEDS: SODIUM CHLORIDE 0.9% FLUSH 5 ML FLUSH IV FLUSH SCH ×2 (08:16→19:43)
[2016-09-10] MEDS: MAGNESIUM OXIDE 400 MG TAB PO SCH ×2 (08:16→19:43)
[2016-09-10] MEDS: TAMSULOSIN HCL 0.4 MG CAP PO SCH (08:16)
[2016-09-10] MEDS: DOCUSATE SODIUM 50 MG/SENNA 8.6 MG TAB PO SCH ×2 (08:16→19:44)
[2016-09-10] MEDS: INSULIN DETEMIR 100 UNITS/ML VIAL SQ SCH ×2 (08:19→19:44)
[2016-09-10] MEDS: COLLAGENASE OINT 30 GM TUBE TOP SCH (08:22)
[2016-09-10 12:00] VITALS: BP 134/82; PULSE 77; RESP 18; TEMP 97.7; O2SAT 96
[2016-09-10] MEDS: HYDROmorphone HCL PF 1 MG/ML VIAL IV PUSH PRN (13:52)
[2016-09-10 16:00] VITALS: BP 138/83; PULSE 70; RESP 20; TEMP 97.8; O2SAT 97
[2016-09-10] MEDS: CHLORHEXIDINE GLUCONATE 2 % 1 PACK (2 CLOTHS) TOP SCH (19:45)
[2016-09-10 20:00] VITALS: BP 148/84; PULSE 84; RESP 20; TEMP 97.1; O2SAT 98
[2016-09-11] VITALS: BP 137/79; PULSE 76; RESP 20; TEMP 97; O2SAT 97
[2016-09-11] MEDS: AMPICILLIN-SULBACTAM INJ 3 GM in SODIUM CHLORIDE 0.9% INJ 100 ML IV SCH ×4 (01:08→20:09)
[2016-09-11] MEDS: ACETAMINOPHEN 325 MG TAB PO SCH ×4 (01:09→20:10)
[2016-09-11 05:25] LABS: BICARBONATE 24.8 MEQ/L (21.0-32.0); POTASSIUM 4.1 MEQ/L (3.5-5.1)
[2016-09-11] MEDS: HEPARIN SODIUM - SQ 10,000 UNITS/ML VIAL SQ SCH ×3 (06:00→20:55)
[2016-09-11] MEDS: INSULIN NovoLIN REGULAR SUPPLEMENTAL SCALE SQ SCH ×4 (06:00→20:55)
[2016-09-11 08:00] VITALS: BP 138/80; PULSE 80; RESP 20; TEMP 97.8; O2SAT 99
[2016-09-11] MEDS: MAGNESIUM OXIDE 400 MG TAB PO SCH ×2 (08:01→20:10)
[2016-09-11] MEDS: DOCUSATE SODIUM 50 MG/SENNA 8.6 MG TAB PO SCH ×2 (08:01→20:12)
[2016-09-11] MEDS: TAMSULOSIN HCL 0.4 MG CAP PO SCH (08:01)
[2016-09-11] MEDS: INSULIN DETEMIR 100 UNITS/ML VIAL SQ SCH ×2 (08:02→20:11)
[2016-09-11] MEDS: SODIUM CHLORIDE 0.9% FLUSH 5 ML FLUSH IV FLUSH SCH ×2 (08:02→20:09)
[2016-09-11] MEDS: COLLAGENASE OINT 30 GM TUBE TOP SCH (08:09)
--- NOTE | 2016-09-11 09:15 | HHI.PR ---
Subjective Remarks This is a very pleasant 51 y/o Male who was admitted due to flulike symptoms and scrotal swelling, erythema and edema, concern for necrotizing soft tissue infection, tachycardic and hypotensive seen by mortgage specialist, improved after IV fluid resuscitation, on Vancomycin and Zosyn and Clindamycin on admission. has Tobacco dependence. Seen in the room and discussed with nurse Mr. Bernal no new issues no Nausea, vomit or diarrhea Objective Vital Signs Date Time Temp Pulse Resp B/P Pulse Ox O2 Delivery O2 Flow Rate FiO2 09/11/16 09:01 18 09/11/16 09:01 18 09/11/16 08:00 97.8 80 20 138/80 99 09/11/16 00:00 97.0 76 20 137/79 97 09/10/16 20:00 97.1 84 20 148/84 98 09/10/16 16:00 97.8 70 20 138/83 97 09/10/16 14:22 18 09/10/16 12:00 97.7 77 18 134/82 96 I/O 09/10/16 09/10/16 09/10/16 09/11/16 09/11/16 09/11/16 07:00 15:00 23:00 07:00 15:00 23:00 Intake Total 580 ml 1082 ml 240 ml 340 ml 120 ml Output Total 550 ml 1200 ml 750 ml 1200 ml Balance 30 ml -118 ml -510 ml -860 ml 120 ml Intake Oral 480 ml 1080 ml 240 ml 240 ml 120 ml IV Total 100 ml 2 ml 100 ml Output Urine Total 550 ml 1200 ml 750 ml 1200 ml # Bowel Movements 1 Result Diagram: 09/07/16 0512 09/11/16 0325 Imaging Last Impressions Abdomen/Pelvis CT 08/31/16 1308 Signed Impressions: Service Date/Time: Wednesday, August 31, 2016 13:36 - CONCLUSION: Significant air within the scrotum with soft tissue inflammation and skin thickening. Charlie's necrotizing fasciitis can have this appearance. I do not see any evidence of bowel or significant inguinal hernia. Triston Euceda MD Chest X-Ray 08/31/16 0000 Signed Impressions: Service Date/Time: Wednesday, August 31, 2016 18:32 - CONCLUSION: Left internal jugular central venous catheter in good position. No evidence of pneumothorax. 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 Other Results Laboratory Tests Test 09/07/16 09/11/16 05:12 03:25 White Blood Count 15.1 TH/MM3 Red Blood Count 2.61 MIL/MM3 Hemoglobin 8.1 GM/DL Hematocrit 23.7 % Mean Corpuscular Volume 90.8 FL Mean Corpuscular Hemoglobin 31.1 PG Mean Corpuscular Hemoglobin 34.2 % Concent Red Cell Distribution Width 12.8 % Platelet Count 563 TH/MM3 Mean Platelet Volume 7.3 FL Sodium Level 138 MEQ/L Potassium Level 4.1 MEQ/L Chloride Level 103 MEQ/L Carbon Dioxide Level 24.8 MEQ/L Anion Gap 10 MEQ/L Blood Urea Nitrogen 12 MG/DL Creatinine 1.03 MG/DL Estimat Glomerular Filtration 76 ML/MIN Rate Random Glucose 144 MG/DL Calcium Level 8.9 MG/DL Objective Remarks GENERAL: No Distress. HEENT: Normocephalic. Atraumatic. Pupils equal, reactive, round, conjugate. NECK:. Trachea is midline. There is no JVD. CHEST: Equal chest rise. Clear to auscultation. CARDIOVASCULAR: Regular rate and rhythm, no Murmurs ABDOMEN: Soft, nontender, nondistended. No guarding. : Open wound evaluated today had wound care. MUSCULOSKELETAL: No clubbing cyanosis or edema. NEUROLOGICAL: Alert and oriented x 3, No focal deficits. Medications and IVs Current Medications Medications (Trade) Dose Ordered Sig/Matt Route Start Time Stop Time Status Last Admin (NS Flush) 2 ml UNSCH PRN IV FLUSH 08/31/16 14:30 09/07/16 02:10 (NS Flush) 2 ml BID IV FLUSH 08/31/16 21:00 09/11/16 08:02 (Zofran Inj) 4 mg Q6H PRN IV 08/31/16 18:00 (Saima-Colace) 2 tab BID PO 08/31/16 21:00 09/11/16 08:01 Miscellaneous Information 1 Q361D XX 08/31/16 14:30 (Chlorhexidine 2% Cloth) Taper DAILY@04 TOP 09/01/16 04:00 08/28/17 03:59 09/02/16 03:02 (Chlorhexidine 2% Cloth) 3 pack UNSCH PRN TOP 08/31/16 14:30 (Flomax) 0.4 mg DAILY PO 09/01/16 09:00 09/11/16 08:01 (Narcan Inj) 0.4 mg UNSCH PRN IV 08/31/16 22:15 (Heparin Inj) 5,000 units Q8HR SQ 09/02/16 14:00 09/11/16 06:00 (Tylenol) 650 mg Q6H PO 09/02/16 09:00 09/11/16 08:01 (Dilaudid Pf Inj) 0.5 mg Q4H PRN IV PUSH 09/02/16 07:45 09/10/16 13:52 Oxycodone HCl 5 mg 5 mg Q4H PRN PO 09/02/16 07:45 09/11/16 08:09 (Unasyn Inj/NS Inj) 100 ml @ 200 mls/hr Q6H IV 09/06/16 08:00 09/11/16 08:02 (Mag-Ox) 400 mg Q12HR PO 09/06/16 09:15 09/11/16 08:01 (D50w (Vial) Inj) 25 ml UNSCH PRN IV PUSH 09/08/16 10:30 (Glucagon Inj) 1 mg UNSCH PRN OTHER 09/08/16 10:30 (Santyl Oint) 1 applic DAILY TOP 09/09/16 09:00 09/11/16 08:09 (Levemir Inj) 8 units BID SQ 09/09/16 21:00 09/11/16 08:02 A/P Problem List: (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 Sepsis present on admission secondary to Charlie's Gangrene, on Zosyn IV, Vancomycin, Clindamycin. discontinued Vancomycin and Clindamycin by ID specialist and continued on Zosyn, today seen by ID specialist Doctor Jay recommended to continue Ampicillin plus Sulbactam and continue Wound care seen by Urology specialist no further I and D Doctor Fynes Following, and also say he will need to be here for the next 3 to 4 weeks. 2. 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 continue wound care. may need further I and D. 3. Diabetes mellitus, hemoglobin A1C 8.8 continue sliding scale and Levemir. better control 4. Electrolyte derangement replaced 5. Constipation given lactulose Improved. 6. RENATA improved. DVT prophylaxis with Heparin. Discussed with patient in the room. Discussed with Nurse Mr. Bernal Discharge Planning as per ID specialist will need In House management for the next 3 to 4 weeks. Romie Bhandari MD Sep 11, 2016 09:15 as per ID specialist will need In House management for the next 3 to 4 weeks. Romie Bhandari MD Sep 11, 2016 09:15
[2016-09-11 12:00] VITALS: BP 120/77; PULSE 85; RESP 19; TEMP 97.9; O2SAT 97
[2016-09-11] MEDS: SODIUM CHLORIDE 0.9% FLUSH 5 ML FLUSH IV FLUSH PRN (15:19)
[2016-09-11] MEDS: HYDROmorphone HCL PF 1 MG/ML VIAL IV PUSH PRN (15:19)
[2016-09-11 16:00] VITALS: BP 127/79; PULSE 72; RESP 18; TEMP 97.7; O2SAT 98
[2016-09-11] MEDS: CHLORHEXIDINE GLUCONATE 2 % 1 PACK (2 CLOTHS) TOP SCH (20:12)
[2016-09-11 21:14] VITALS: BP 121/77; PULSE 86; RESP 17; TEMP 98.1; O2SAT 100
[2016-09-12] VITALS: BP 125/73; PULSE 74; RESP 17; TEMP 98.1; O2SAT 99
[2016-09-12] MEDS: AMPICILLIN-SULBACTAM INJ 3 GM in SODIUM CHLORIDE 0.9% INJ 100 ML IV SCH ×4 (01:33→20:16)
[2016-09-12] MEDS: ACETAMINOPHEN 325 MG TAB PO SCH ×4 (01:34→20:18)
[2016-09-12] MEDS: HEPARIN SODIUM - SQ 10,000 UNITS/ML VIAL SQ SCH ×3 (05:36→21:11)
[2016-09-12] MEDS: INSULIN NovoLIN REGULAR SUPPLEMENTAL SCALE SQ SCH ×4 (06:29→20:19)
[2016-09-12] MEDS: DOCUSATE SODIUM 50 MG/SENNA 8.6 MG TAB PO SCH ×2 (07:37→20:17)
[2016-09-12] MEDS: TAMSULOSIN HCL 0.4 MG CAP PO SCH (07:38)
[2016-09-12] MEDS: MAGNESIUM OXIDE 400 MG TAB PO SCH ×2 (07:38→20:17)
[2016-09-12] MEDS: INSULIN DETEMIR 100 UNITS/ML VIAL SQ SCH ×2 (07:39→20:18)
[2016-09-12] MEDS: SODIUM CHLORIDE 0.9% FLUSH 5 ML FLUSH IV FLUSH SCH ×2 (07:39→20:16)
[2016-09-12] MEDS: COLLAGENASE OINT 30 GM TUBE TOP SCH (07:42)
[2016-09-12 08:00] VITALS: BP 122/74; PULSE 82; RESP 19; TEMP 97.9; O2SAT 99
--- NOTE | 2016-09-12 10:31 | HHI.PR ---
Subjective Remarks This is a very pleasant 51 y/o Male who was admitted due to flulike symptoms and scrotal swelling, erythema and edema, concern for necrotizing soft tissue infection, tachycardic and hypotensive seen by electronic publishing specialist, improved after IV fluid resuscitation, on Vancomycin and Zosyn and Clindamycin on admission. has Tobacco dependence. Already seen by bpo specialist and recommended to continue dressing changes, he will need to mechanically scrub the wound over the next 2 to 3 days, will have skin graft, No nausea, vomit or diarrhea Objective Vital Signs Date Time Temp Pulse Resp B/P Pulse Ox O2 Delivery O2 Flow Rate FiO2 09/12/16 08:37 18 09/12/16 08:00 97.9 82 19 122/74 99 09/12/16 00:00 98.1 74 17 125/73 99 09/11/16 21:14 98.1 86 17 121/77 100 09/11/16 16:00 97.7 72 18 127/79 98 09/11/16 15:49 18 09/11/16 12:00 97.9 85 19 120/77 97 I/O 09/11/16 09/11/16 09/11/16 09/12/16 09/12/16 09/12/16 07:00 15:00 23:00 07:00 15:00 23:00 Intake Total 340 ml 1080 ml 340 ml 340 ml Output Total 1200 ml 1000 ml 800 ml 350 ml Balance -860 ml 80 ml -460 ml -10 ml Intake Oral 240 ml 1080 ml 240 ml 240 ml IV Total 100 ml 100 ml 100 ml Output Urine Total 1200 ml 1000 ml 800 ml 350 ml # Bowel Movements 1 Result Diagram: 09/11/16 0325 Imaging Last Impressions Abdomen/Pelvis CT 08/31/16 1308 Signed Impressions: Service Date/Time: Wednesday, August 31, 2016 13:36 - CONCLUSION: Significant air within the scrotum with soft tissue inflammation and skin thickening. Charlie's necrotizing fasciitis can have this appearance. I do not see any evidence of bowel or significant inguinal hernia. Triston Euceda MD Chest X-Ray 08/31/16 0000 Signed Impressions: Service Date/Time: Wednesday, August 31, 2016 18:32 - CONCLUSION: Left internal jugular central venous catheter in good position. No evidence of pneumothorax. 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 Other Results Laboratory Tests Test 09/11/16 03:25 Sodium Level 138 MEQ/L Potassium Level 4.1 MEQ/L Chloride Level 103 MEQ/L Carbon Dioxide Level 24.8 MEQ/L Anion Gap 10 MEQ/L Blood Urea Nitrogen 12 MG/DL Creatinine 1.03 MG/DL Estimat Glomerular Filtration 76 ML/MIN Rate Random Glucose 144 MG/DL Calcium Level 8.9 MG/DL Objective Remarks GENERAL: No Distress. HEENT: Normocephalic. Atraumatic. Pupils equal, reactive, round, conjugate. NECK:. Trachea is midline. There is no JVD. CHEST: Equal chest rise. Clear to auscultation. CARDIOVASCULAR: Regular rate and rhythm, no Murmurs ABDOMEN: Soft, nontender, nondistended. No guarding. : Open wound evaluated today had wound care. MUSCULOSKELETAL: No clubbing cyanosis or edema. NEUROLOGICAL: Alert and oriented x 3, No focal deficits. Medications and IVs Current Medications Medications (Trade) Dose Ordered Sig/Matt Route Start Time Stop Time Status Last Admin (NS Flush) 2 ml UNSCH PRN IV FLUSH 08/31/16 14:30 09/11/16 15:19 (NS Flush) 2 ml BID IV FLUSH 08/31/16 21:00 09/12/16 07:39 (Zofran Inj) 4 mg Q6H PRN IV 08/31/16 18:00 (Saima-Colace) 2 tab BID PO 08/31/16 21:00 09/11/16 08:01 Miscellaneous Information 1 Q361D XX 08/31/16 14:30 (Chlorhexidine 2% Cloth) Taper DAILY@04 TOP 09/01/16 04:00 08/28/17 03:59 09/02/16 03:02 (Chlorhexidine 2% Cloth) 3 pack UNSCH PRN TOP 08/31/16 14:30 (Flomax) 0.4 mg DAILY PO 09/01/16 09:00 09/12/16 07:38 (Narcan Inj) 0.4 mg UNSCH PRN IV 08/31/16 22:15 (Heparin Inj) 5,000 units Q8HR SQ 09/02/16 14:00 09/12/16 05:36 (Tylenol) 650 mg Q6H PO 09/02/16 09:00 09/12/16 07:37 (Dilaudid Pf Inj) 0.5 mg Q4H PRN IV PUSH 09/02/16 07:45 09/11/16 15:19 Oxycodone HCl 5 mg 5 mg Q4H PRN PO 09/02/16 07:45 09/11/16 20:12 (Unasyn Inj/NS Inj) 100 ml @ 200 mls/hr Q6H IV 09/06/16 08:00 09/12/16 07:37 (Mag-Ox) 400 mg Q12HR PO 09/06/16 09:15 09/12/16 07:38 (D50w (Vial) Inj) 25 ml UNSCH PRN IV PUSH 09/08/16 10:30 (Glucagon Inj) 1 mg UNSCH PRN OTHER 09/08/16 10:30 (Santyl Oint) 1 applic DAILY TOP 09/09/16 09:00 09/12/16 07:42 (Levemir Inj) 8 units BID SQ 09/09/16 21:00 09/12/16 07:39 A/P Problem List: (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 Sepsis present on admission secondary to Charlie's Gangrene, initially on Zosyn IV, Vancomycin, And Clindamycin, then Discontinued Vancomycin and Clindamycin and placed on Zosyn then started on Ampicillin plus Sulbactam, as per Doctor Thompson he will stay here for the Next 3 to 4 weeks, as per bpo specialist for Skin Graft. 2. 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 continue wound care. Plastic Surgery following for Skin Graft. 3. Diabetes mellitus, hemoglobin A1C 8.8 continue sliding scale and Levemir. better control 4. Electrolyte derangement replaced 5. Constipation given lactulose Improved. 6. RENATA improved. DVT prophylaxis with Heparin. Discussed with patient in the room. Discussed with Nurse Miss Nava Discharge Planning as per ID specialist will need In House management for the next 3 to 4 weeks. Romie Bhandari MD Sep 12, 2016 10:31
[2016-09-12 11:47] VITALS: BP 129/71; PULSE 92; RESP 18; TEMP 97.8; O2SAT 99
[2016-09-12] MEDS: FLUCONAZOLE 100 MG TAB PO SCH (12:35)
--- NOTE | 2016-09-12 13:26 | MB ---
cc: GOSIA MARTINEZ M.D. DATE OF CONSULTATION: 09/08/2016. REASON FOR CONSULTATION: Open wound posterior scrotum for possible skin graft. HISTORY OF PRESENT ILLNESS: This is a 51-year-old white male who originally came to the hospital through the emergency room on August 31, 2016. He had a Charlie's gangrene involving the scrotum and underwent emergency surgery to debride the scrotum. He is approximately a week past the surgery now and is doing better. The consultation is made to me for possibility of a reconstruction of the area with a skin graft. The patient is not currently having any major issues other than getting the wound care and the IV antibiotics. Originally when he came he was septic. PAST MEDICAL HISTORY: Past medical history is negative for diabetes. No other major issues medically. ALLERGIES: NONE. CURRENT MEDICATIONS: 1. Pain medication. 2. The IV antibiotics that he is on. PHYSICAL EXAMINATION: The examination shows a 51-year-old white male with surgical bed. He is alert, cooperative, fully comfortable, well-oriented, able to move around at will. The examination is grossly within normal range. Local examination of the scrotum shows the skin is normal on the anterior and inferior parts of the scrotal skin. The wound is mostly posteriorly based. It is approximately 5 to 6 cm in diameter sideways and 10 + cm nga-posterior. It does extend outside to the base of the scrotum posteriorly but not on the perineum perianal areas. The area is covered with clear thin fibrin layer. No gross cellulitis or abscess noted at this point. The scrotal skin edges are beginning to turn in. RECOMMENDATIONS: The patient was explained the size of the wound and the possibility of skin graft after the granulation tissue begins to form. The patient will need wound care for a few more days, at least, and can be reassessed. When asked to have the wound care done at home if he can be placed on oral antibiotics he said that his insurance does not cover any wound care visits at home and he would rather stay here and finish the course of antibiotics as well. The patient can possibly heal this area over time although with a somewhat tighter scar but either a secondary healing or a skin graft both are possible. The patient will be reevaluated in a few days to assess the status of the wound. Again, if the insurance company can be approached by case management about wound care at home, a few more days of wound healing will prepare the wound bed for better chance at skin grafting. MD MARANDA Khan/LEONORA /10:47 AM /12:18 PM ASMITA
--- NOTE | 2016-09-12 13:42 | PD.PLAS.PN ---
Subjective Remarks Patient seen approx 12:30 pm Doing well - on IV antibiotics and local dressing changes No fever, no other issues Wound looks stable - he has not washed the wound / taken shower yet Just the local saline dressing changes so far. Discussed skin graft details again - he needs to mechanically scrub the wound over next 2-3 days - will allow him to do this himself in shower. He thinks that he will be in the hospital till the end of this month and wants to go ahead with skin grafting. Understands that the graft may not take completely, especially towards the anal side of the wound as he will be washing / doing perianal cleaning on a daily basis - the graft will be partially subject to constant motion etc. Vital Signs Date Time Temp Pulse Resp B/P Pulse Ox O2 Delivery O2 Flow Rate FiO2 09/12/16 11:47 97.8 92 18 129/71 99 09/12/16 08:37 18 09/12/16 08:00 97.9 82 19 122/74 99 09/12/16 00:00 98.1 74 17 125/73 99 09/11/16 21:14 98.1 86 17 121/77 100 09/11/16 16:00 97.7 72 18 127/79 98 09/11/16 15:49 18 I/O 09/11/16 09/11/16 09/11/16 09/12/16 09/12/16 09/12/16 07:00 15:00 23:00 07:00 15:00 23:00 Intake Total 340 ml 1080 ml 340 ml 340 ml Output Total 1200 ml 1000 ml 800 ml 350 ml Balance -860 ml 80 ml -460 ml -10 ml Intake Oral 240 ml 1080 ml 240 ml 240 ml IV Total 100 ml 100 ml 100 ml Output Urine Total 1200 ml 1000 ml 800 ml 350 ml # Bowel Movements 1 Date/Time Procedure Status Source Growth 09/09/16 17:35 Gram Stain - Final Complete Wound Scrotum 09/09/16 17:35 Wound Culture - Final Complete Yeast Species 09/09/16 17:35 Fungal Smear - Final Resulted Wound Scrotum FEW BUDDING YEAST CELLS 09/09/16 17:35 Fungal Culture Resulted Wound Scrotum Pending 09/09/16 17:35 Acid Fast Stain - Final Resulted Wound Scrotum NO ACID FAST BACILLI SEEN 09/09/16 17:35 Mycobacterial Culture Resulted Wound Scrotum Pending Result Diagram: 09/11/16 0325 Jeet Lainez MD Sep 12, 2016 13:42
[2016-09-12] MEDS: HYDROmorphone HCL PF 1 MG/ML VIAL IV PUSH PRN (14:19)
[2016-09-12 16:00] VITALS: BP 131/73; PULSE 82; RESP 17; TEMP 97.9; O2SAT 96
[2016-09-12 20:00] VITALS: BP 114/74; PULSE 85; RESP 17; TEMP 97.4; O2SAT 99
[2016-09-13] VITALS: BP 136/78; PULSE 79; RESP 17; TEMP 97.8; O2SAT 98
[2016-09-13] MEDS: AMPICILLIN-SULBACTAM INJ 3 GM in SODIUM CHLORIDE 0.9% INJ 100 ML IV SCH ×4 (02:00→20:00)
[2016-09-13] MEDS: ACETAMINOPHEN 325 MG TAB PO SCH ×4 (03:59→21:00)
[2016-09-13] MEDS: CHLORHEXIDINE GLUCONATE 2 % 1 PACK (2 CLOTHS) TOP SCH ×2 (04:00→23:08)
[2016-09-13] MEDS: HEPARIN SODIUM - SQ 10,000 UNITS/ML VIAL SQ SCH ×3 (05:09→21:09)
[2016-09-13] MEDS: INSULIN NovoLIN REGULAR SUPPLEMENTAL SCALE SQ SCH ×4 (05:10→21:00)
[2016-09-13 08:00] VITALS: BP 125/79; PULSE 84; RESP 18; TEMP 96.7; O2SAT 98
[2016-09-13] MEDS: COLLAGENASE OINT 30 GM TUBE TOP SCH (09:00)
--- NOTE | 2016-09-13 09:03 | HHI.PR ---
Subjective Remarks This is a very pleasant 51 y/o Male who was admitted due to flulike symptoms and scrotal swelling, erythema and edema, concern for necrotizing soft tissue infection, tachycardic and hypotensive seen by cyber security specialist, improved after IV fluid resuscitation, on Vancomycin and Zosyn and Clindamycin on admission. has Tobacco dependence. Patient stable no new issues, no Nausea, vomit or diarrhea. Objective Vital Signs Date Time Temp Pulse Resp B/P Pulse Ox O2 Delivery O2 Flow Rate FiO2 09/13/16 08:00 96.7 84 18 125/79 98 09/13/16 00:00 97.8 79 17 136/78 98 09/12/16 20:00 97.4 85 17 114/74 99 09/12/16 16:00 97.9 82 17 131/73 96 09/12/16 14:49 18 09/12/16 14:49 18 09/12/16 11:47 97.8 92 18 129/71 99 I/O 09/12/16 09/12/16 09/12/16 09/13/16 09/13/16 09/13/16 07:00 15:00 23:00 07:00 15:00 23:00 Intake Total 340 ml 480 ml 340 ml 340 ml Output Total 350 ml 1500 ml 550 ml 500 ml Balance -10 ml -1020 ml -210 ml -160 ml Intake Oral 240 ml 480 ml 240 ml 240 ml IV Total 100 ml 100 ml 100 ml Output Urine Total 350 ml 1500 ml 550 ml 500 ml # Bowel Movements 1 Result Diagram: 09/11/16 0325 Imaging Last Impressions Abdomen/Pelvis CT 08/31/16 1308 Signed Impressions: Service Date/Time: Wednesday, August 31, 2016 13:36 - CONCLUSION: Significant air within the scrotum with soft tissue inflammation and skin thickening. Charlie's necrotizing fasciitis can have this appearance. I do not see any evidence of bowel or significant inguinal hernia. Triston Euecda MD Chest X-Ray 08/31/16 0000 Signed Impressions: Service Date/Time: Wednesday, August 31, 2016 18:32 - CONCLUSION: Left internal jugular central venous catheter in good position. No evidence of pneumothorax. 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 Other Results Laboratory Tests Test 09/11/16 03:25 Sodium Level 138 MEQ/L Potassium Level 4.1 MEQ/L Chloride Level 103 MEQ/L Carbon Dioxide Level 24.8 MEQ/L Anion Gap 10 MEQ/L Blood Urea Nitrogen 12 MG/DL Creatinine 1.03 MG/DL Estimat Glomerular Filtration 76 ML/MIN Rate Random Glucose 144 MG/DL Calcium Level 8.9 MG/DL Objective Remarks GENERAL: No Distress. HEENT: Normocephalic. Atraumatic. Pupils equal, reactive, round, conjugate. NECK:. Trachea is midline. There is no JVD. CHEST: Equal chest rise. Clear to auscultation. CARDIOVASCULAR: Regular rate and rhythm, no Murmurs ABDOMEN: Soft, nontender, nondistended. No guarding. : Open wound evaluated today had wound care. MUSCULOSKELETAL: No clubbing cyanosis or edema. NEUROLOGICAL: Alert and oriented x 3, No focal deficits. Medications and IVs Current Medications Medications (Trade) Dose Ordered Sig/Matt Route Start Time Stop Time Status Last Admin (NS Flush) 2 ml UNSCH PRN IV FLUSH 08/31/16 14:30 09/11/16 15:19 (NS Flush) 2 ml BID IV FLUSH 08/31/16 21:00 09/12/16 20:16 (Zofran Inj) 4 mg Q6H PRN IV 08/31/16 18:00 (Saima-Colace) 2 tab BID PO 08/31/16 21:00 09/11/16 08:01 Miscellaneous Information 1 Q361D XX 08/31/16 14:30 (Chlorhexidine 2% Cloth) Taper DAILY@04 TOP 09/01/16 04:00 08/28/17 03:59 09/02/16 03:02 (Chlorhexidine 2% Cloth) 3 pack UNSCH PRN TOP 08/31/16 14:30 (Flomax) 0.4 mg DAILY PO 09/01/16 09:00 09/12/16 07:38 (Narcan Inj) 0.4 mg UNSCH PRN IV 08/31/16 22:15 (Heparin Inj) 5,000 units Q8HR SQ 09/02/16 14:00 09/13/16 05:09 (Tylenol) 650 mg Q6H PO 09/02/16 09:00 09/13/16 03:59 (Dilaudid Pf Inj) 0.5 mg Q4H PRN IV PUSH 09/02/16 07:45 09/12/16 14:19 Oxycodone HCl 5 mg 5 mg Q4H PRN PO 09/02/16 07:45 09/12/16 16:25 (Unasyn Inj/NS Inj) 100 ml @ 200 mls/hr Q6H IV 09/06/16 08:00 09/13/16 02:00 (Mag-Ox) 400 mg Q12HR PO 09/06/16 09:15 09/12/16 20:17 (D50w (Vial) Inj) 25 ml UNSCH PRN IV PUSH 09/08/16 10:30 (Glucagon Inj) 1 mg UNSCH PRN OTHER 09/08/16 10:30 (Santyl Oint) 1 applic DAILY TOP 09/09/16 09:00 09/12/16 07:42 (Levemir Inj) 8 units BID SQ 09/09/16 21:00 09/12/16 20:18 (Diflucan) 100 mg DAILY PO 09/12/16 11:45 09/12/16 12:35 A/P Problem List: (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 Sepsis present on admission secondary to Charlie's Gangrene, initially on Zosyn IV, Vancomycin, And Clindamycin, then Discontinued Vancomycin and Clindamycin and placed on Zosyn then started on Ampicillin plus Sulbactam, as per Doctor Thompson he will stay here for the Next 3 to 4 weeks, as per welding specialist for Skin Graft. as per Doctor Jeet Lainez for Surgery 09/15/16 13:30 2. 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 continue wound care. Plastic Surgery following for Skin Graft. 3. Diabetes mellitus, hemoglobin A1C 8.8 continue sliding scale and Levemir. better control 4. Electrolyte derangement replaced 5. Constipation given lactulose Improved. 6. RENATA improved. DVT prophylaxis with Heparin. Discussed with patient in the room. Discussed with Nurse Miss Nava Discharge Planning as per ID specialist will need In House management for the next 3 to 4 weeks. Romie Bhandari MD Sep 13, 2016 09:03 Romie Bhandari MD Sep 13, 2016 09:03
[2016-09-13] MEDS: SODIUM CHLORIDE 0.9% FLUSH 5 ML FLUSH IV FLUSH SCH ×2 (09:18→21:00)
[2016-09-13] MEDS: DOCUSATE SODIUM 50 MG/SENNA 8.6 MG TAB PO SCH ×2 (09:19→21:00)
[2016-09-13] MEDS: TAMSULOSIN HCL 0.4 MG CAP PO SCH (09:19)
[2016-09-13] MEDS: FLUCONAZOLE 100 MG TAB PO SCH (09:19)
[2016-09-13] MEDS: MAGNESIUM OXIDE 400 MG TAB PO SCH ×2 (09:20→21:00)
[2016-09-13] MEDS: INSULIN DETEMIR 100 UNITS/ML VIAL SQ SCH ×2 (09:20→21:00)
--- NOTE | 2016-09-13 10:26 | PD.PLAS.PN ---
Subjective Remarks Patient scheduled for surgery on Tue09/15/16 at 1330 pm To use soap and water twice a day to wash the area Vital Signs Date Time Temp Pulse Resp B/P Pulse Ox O2 Delivery O2 Flow Rate FiO2 09/13/16 08:00 96.7 84 18 125/79 98 09/13/16 00:00 97.8 79 17 136/78 98 09/12/16 20:00 97.4 85 17 114/74 99 09/12/16 16:00 97.9 82 17 131/73 96 09/12/16 14:49 18 09/12/16 14:49 18 09/12/16 11:47 97.8 92 18 129/71 99 I/O 09/12/16 09/12/16 09/12/16 09/13/16 09/13/16 09/13/16 07:00 15:00 23:00 07:00 15:00 23:00 Intake Total 340 ml 480 ml 340 ml 340 ml Output Total 350 ml 1500 ml 550 ml 500 ml Balance -10 ml -1020 ml -210 ml -160 ml Intake Oral 240 ml 480 ml 240 ml 240 ml IV Total 100 ml 100 ml 100 ml Output Urine Total 350 ml 1500 ml 550 ml 500 ml # Bowel Movements 1 Date/Time Procedure Status Source Growth 09/09/16 17:35 Gram Stain - Final Complete Wound Scrotum 09/09/16 17:35 Wound Culture - Final Complete Yeast Species 09/09/16 17:35 Fungal Smear - Final Resulted Wound Scrotum FEW BUDDING YEAST CELLS 09/09/16 17:35 Fungal Culture Resulted Wound Scrotum Pending 09/09/16 17:35 Acid Fast Stain - Final Resulted Wound Scrotum NO ACID FAST BACILLI SEEN 09/09/16 17:35 Mycobacterial Culture Resulted Wound Scrotum Pending Result Diagram: 09/11/16 0325 Jeet Lainez MD Sep 13, 2016 10:26
[2016-09-13] MEDS: HYDROmorphone HCL PF 1 MG/ML VIAL IV PUSH PRN (11:56)
[2016-09-13 11:57] VITALS: BP 134/75; PULSE 82; RESP 19; TEMP 97.1; O2SAT 96
--- NOTE | 2016-09-13 14:15 | HHI.IDPN ---
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 Overnight events reviewed. No fever No rash No diarrhea d.w plan for reconstructive flap on Tue this week. Continue IV antibiotics for now. Antibiotics Unasyn IV Diflucan Lines Line sites with no e.o infection Past Medical History reviewed Allergies: Coded Allergies: No Known Allergies (Unverified , 08/31/16) Objective . Vital Signs Date Time Temp Pulse Resp B/P Pulse Ox O2 Delivery O2 Flow Rate FiO2 09/13/16 11:57 97.1 82 19 134/75 96 09/13/16 08:00 96.7 84 18 125/79 98 09/13/16 00:00 97.8 79 17 136/78 98 09/12/16 20:00 97.4 85 17 114/74 99 09/12/16 16:00 97.9 82 17 131/73 96 09/12/16 14:49 18 09/12/16 14:49 18 09/12/16 09/12/16 09/13/16 15:00 23:00 07:00 Intake Total 480 ml 340 ml 340 ml Output Total 1500 ml 550 ml 500 ml Balance -1020 ml -210 ml -160 ml Intake Oral 480 ml 240 ml 240 ml IV Total 100 ml 100 ml Output Urine Total 1500 ml 550 ml 500 ml # Bowel Movements 1 Imaging Last Impressions Abdomen/Pelvis CT 08/31/16 1308 Signed Impressions: Service Date/Time: Wednesday, August 31, 2016 13:36 - CONCLUSION: Significant air within the scrotum with soft tissue inflammation and skin thickening. Charlie's necrotizing fasciitis can have this appearance. I do not see any evidence of bowel or significant inguinal hernia. Triston Euceda MD Chest X-Ray 08/31/16 0000 Signed Impressions: Service Date/Time: Wednesday, August 31, 2016 18:32 - CONCLUSION: Left internal jugular central venous catheter in good position. No evidence of pneumothorax. Felix Caballero MD Physical Exam GENERAL: This is a well-nourished, well-developed patient, in no apparent distress. SKIN: No rashes, ecchymoses or lesions. Cool and dry. HEAD: Atraumatic. Normocephalic. No temporal or scalp tenderness. EYES: Pupils equal round and reactive. Extraocular motions intact. No scleral icterus. No injection or drainage. ENT: Nose without bleeding, purulent drainage or septal hematoma. Throat without erythema, tonsillar hypertrophy or exudate. Uvula midline. Airway patent. NECK: Trachea midline. Supple, nontender, no meningeal signs. CARDIOVASCULAR: Heart sounds audible. No murmur appreciated. RESPIRATORY: Clear to auscultation. Breath sounds equal bilaterally. GASTROINTESTINAL: Abdomen soft, non-tender, nondistended. No hepato-splenomegaly , or palpable masses. No guarding. MUSCULOSKELETAL: Extremities without clubbing, cyanosis, or edema. No joint tenderness, effusion, or edema noted. No calf tenderness. Negative Homans sign bilaterally. NEUROLOGICAL: Awake and alert. Grossly nonfocal. Genitourinary examination: deferred Psych cooperative IV line sites with no evidence of infection. Assessment & Plan Remarks Sepsis present on admission controlled now. Source likely Charlie's gangrene Now with yeast infection ? secondary over growth while on antibiotics. New onset diabetes mellitus Recommendations Continue Unasyn IV plan on 4 weeks IV followed by 2 wks oral depending on clinical response. Continue Diflucan Follow cultures Follow clinically. d/w and pt. Will follow prn. Post reconstruction surgery will reassess. Kate Thompson MD Sep 13, 2016 14:15
[2016-09-13 16:00] VITALS: BP 128/77; PULSE 78; RESP 19; TEMP 96.6; O2SAT 98
[2016-09-13 21:58] VITALS: BP 134/80; PULSE 74; RESP 18; TEMP 98.7; O2SAT 97
[2016-09-14 01:12] VITALS: BP 135/78; PULSE 77; RESP 18; TEMP 98.6; O2SAT 97
[2016-09-14] MEDS: AMPICILLIN-SULBACTAM INJ 3 GM in SODIUM CHLORIDE 0.9% INJ 100 ML IV SCH ×4 (02:39→20:36)
[2016-09-14] MEDS: ACETAMINOPHEN 325 MG TAB PO SCH ×4 (02:40→20:40)
[2016-09-14 05:34] VITALS: BP 120/78; PULSE 88; RESP 18; TEMP 98.2; O2SAT 94
[2016-09-14] MEDS: HEPARIN SODIUM - SQ 10,000 UNITS/ML VIAL SQ SCH ×3 (05:50→20:38)
[2016-09-14] MEDS: INSULIN NovoLIN REGULAR SUPPLEMENTAL SCALE SQ SCH ×4 (06:03→20:38)
[2016-09-14 08:05] VITALS: BP 140/79; PULSE 81; RESP 20; TEMP 97.4; O2SAT 98
[2016-09-14] MEDS: INSULIN DETEMIR 100 UNITS/ML VIAL SQ SCH ×2 (09:00→20:37)
[2016-09-14] MEDS: SODIUM CHLORIDE 0.9% FLUSH 5 ML FLUSH IV FLUSH SCH ×2 (09:00→20:37)
[2016-09-14] MEDS: COLLAGENASE OINT 30 GM TUBE TOP SCH (09:00)
[2016-09-14] MEDS: FLUCONAZOLE 100 MG TAB PO SCH (10:22)
[2016-09-14] MEDS: DOCUSATE SODIUM 50 MG/SENNA 8.6 MG TAB PO SCH ×2 (10:22→20:37)
[2016-09-14] MEDS: MAGNESIUM OXIDE 400 MG TAB PO SCH ×2 (10:23→20:37)
[2016-09-14] MEDS: TAMSULOSIN HCL 0.4 MG CAP PO SCH (10:23)
[2016-09-14 12:00] VITALS: BP 147/85; PULSE 74; RESP 16; TEMP 97; O2SAT 98
[2016-09-14 16:00] VITALS: BP 135/76; PULSE 82; RESP 17; TEMP 97.2; O2SAT 96
--- NOTE | 2016-09-14 16:23 | HHI.PR ---
Subjective Remarks The patient says his dressing came off while he was having a bowel movement but he reapplied a fresh one. He says his pain is controlled for the most part. He is anticipating surgery tomorrow. No acute complaints. Objective Vitals Vital Signs Date Time Temp Pulse Resp B/P Pulse Ox O2 Delivery O2 Flow Rate FiO2 09/14/16 12:00 97.0 74 16 147/85 98 09/14/16 08:05 97.4 81 20 140/79 98 09/14/16 05:34 98.2 88 18 120/78 94 09/14/16 01:12 98.6 77 18 135/78 97 09/13/16 21:58 98.7 74 18 134/80 97 I/O 09/13/16 09/13/16 09/13/16 09/14/16 09/14/16 09/14/16 07:00 15:00 23:00 07:00 15:00 23:00 Intake Total 340 ml 500 ml 100 ml 100 ml 772 ml Output Total 500 ml 800 ml 450 ml 1000 ml 1250 ml Balance -160 ml -300 ml -350 ml -900 ml -478 ml Intake Oral 240 ml 500 ml 0 ml IV Total 100 ml 100 ml 100 ml 772 ml Output Urine Total 500 ml 800 ml 450 ml 1000 ml 1250 ml # Bowel Movements 2 0 Result Diagram: 09/11/16 0325 Imaging Last Impressions Abdomen/Pelvis CT 08/31/16 1308 Signed Impressions: Service Date/Time: Wednesday, August 31, 2016 13:36 - CONCLUSION: Significant air within the scrotum with soft tissue inflammation and skin thickening. Charlie's necrotizing fasciitis can have this appearance. I do not see any evidence of bowel or significant inguinal hernia. Triston Euceda MD Chest X-Ray 08/31/16 0000 Signed Impressions: Service Date/Time: Wednesday, August 31, 2016 18:32 - CONCLUSION: Left internal jugular central venous catheter in good position. No evidence of pneumothorax. Felix Caballero MD Objective Remarks GENERAL: No distress. HEENT: Normocephalic. Atraumatic. Pupils equal, reactive, round, conjugate. NECK:. Trachea is midline. There is no JVD. CHEST: Equal chest rise. Clear to auscultation. CARDIOVASCULAR: Regular rate and rhythm, no Murmurs ABDOMEN: Soft, nontender, nondistended. No guarding. : Bandage in place. MUSCULOSKELETAL: No clubbing cyanosis or edema. NEUROLOGICAL: Alert and oriented x 3, No focal deficits. PSYCH: Mood and affect appropriate. Medications and IVs Current Medications Medications (Trade) Dose Ordered Sig/Matt Route Start Time Stop Time Status Last Admin (NS Flush) 2 ml UNSCH PRN IV FLUSH 08/31/16 14:30 09/11/16 15:19 (NS Flush) 2 ml BID IV FLUSH 08/31/16 21:00 09/13/16 21:00 (Zofran Inj) 4 mg Q6H PRN IV 08/31/16 18:00 (Saima-Colace) 2 tab BID PO 08/31/16 21:00 09/14/16 10:22 Miscellaneous Information 1 Q361D XX 08/31/16 14:30 (Chlorhexidine 2% Cloth) Taper DAILY@04 TOP 09/01/16 04:00 08/28/17 03:59 09/02/16 03:02 (Chlorhexidine 2% Cloth) 3 pack UNSCH PRN TOP 08/31/16 14:30 (Flomax) 0.4 mg DAILY PO 09/01/16 09:00 09/14/16 10:23 (Narcan Inj) 0.4 mg UNSCH PRN IV 08/31/16 22:15 (Heparin Inj) 5,000 units Q8HR SQ 09/02/16 14:00 09/13/16 21:09 (Tylenol) 650 mg Q6H PO 09/02/16 09:00 09/14/16 10:22 (Dilaudid Pf Inj) 0.5 mg Q4H PRN IV PUSH 09/02/16 07:45 09/13/16 11:56 Oxycodone HCl 5 mg 5 mg Q4H PRN PO 09/02/16 07:45 09/13/16 09:19 (Unasyn Inj/NS Inj) 100 ml @ 200 mls/hr Q6H IV 09/06/16 08:00 09/14/16 10:23 (Mag-Ox) 400 mg Q12HR PO 09/06/16 09:15 09/14/16 10:23 (D50w (Vial) Inj) 25 ml UNSCH PRN IV PUSH 09/08/16 10:30 (Glucagon Inj) 1 mg UNSCH PRN OTHER 09/08/16 10:30 (Santyl Oint) 1 applic DAILY TOP 09/09/16 09:00 09/13/16 09:00 (Levemir Inj) 8 units BID SQ 09/09/16 21:00 09/13/16 21:00 (Diflucan) 100 mg DAILY PO 09/12/16 11:45 09/14/16 10:22 A/P Assessment and Plan 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 Initially on Zosyn and vancomycin. Status post I and D by Urology. ID and plastic surgery consults appreciated. - continue Unasyn per ID. - plastics scheduling surgery 09/15/16. Diabetes mellitus Hemoglobin A1C 8.8%. Well controlled at this time. - continue sliding scale and Levemir. Anemia May be s/t bleeding from wound. - continue to monitor and transfuse as needed. DVT prophylaxis with Heparin. Discharge Planning Awaiting surgery. Brda Soto DO Sep 14, 2016 16:23
[2016-09-14] MEDS: HYDROmorphone HCL PF 1 MG/ML VIAL IV PUSH PRN (17:39)
[2016-09-14 20:00] VITALS: BP 131/76; PULSE 91; RESP 16; TEMP 97.3; O2SAT 96
[2016-09-14] MEDS: CHLORHEXIDINE GLUCONATE 2 % 1 PACK (2 CLOTHS) TOP SCH (20:39)
[2016-09-15] VITALS: BP 130/74; PULSE 79; RESP 16; TEMP 96.4; O2SAT 99
[2016-09-15] MEDS: AMPICILLIN-SULBACTAM INJ 3 GM in SODIUM CHLORIDE 0.9% INJ 100 ML IV SCH ×4 (01:36→21:03)
[2016-09-15] MEDS: ACETAMINOPHEN 325 MG TAB PO SCH ×4 (03:00→21:02)
[2016-09-15 05:09] LABS: HEMATOCRIT 30.5 % (39.0-51.0); MEAN CELL VOLUME 93.2 FL (80.0-100.0); MEAN CORPUSCULAR HEMOGLOBIN 31.1 PG (27.0-34.0); MEAN CORPUSCULAR HGB CONC 33.4 % (32.0-36.0); PLATELET COUNT 774 TH/MM3 (150-450); RED BLOOD COUNT 3.27 MIL/MM3 (4.50-5.90); RED CELL DISTRIBUTION WIDTH 13.7 % (11.6-17.2); REVIEW FLAG FINAL; WHITE BLOOD COUNT 8.3 TH/MM3 (4.0-11.0)
[2016-09-15 05:38] LABS: BICARBONATE 27.1 MEQ/L (21.0-32.0); MAGNESIUM 2.1 MG/DL (1.5-2.5); POTASSIUM 4.2 MEQ/L (3.5-5.1)
[2016-09-15] MEDS: HEPARIN SODIUM - SQ 10,000 UNITS/ML VIAL SQ SCH ×3 (06:00→21:03)
[2016-09-15] MEDS: INSULIN NovoLIN REGULAR SUPPLEMENTAL SCALE SQ SCH ×4 (06:07→21:00)
[2016-09-15 07:58] VITALS: BP 116/79; PULSE 83; RESP 17; TEMP 97.5; O2SAT 96
[2016-09-15] MEDS: COLLAGENASE OINT 30 GM TUBE TOP SCH (09:00)
[2016-09-15] MEDS: TAMSULOSIN HCL 0.4 MG CAP PO SCH (09:17)
[2016-09-15] MEDS: MAGNESIUM OXIDE 400 MG TAB PO SCH ×2 (09:17→21:02)
[2016-09-15] MEDS: FLUCONAZOLE 100 MG TAB PO SCH (09:17)
[2016-09-15] MEDS: DOCUSATE SODIUM 50 MG/SENNA 8.6 MG TAB PO SCH ×2 (09:17→21:02)
[2016-09-15] MEDS: INSULIN DETEMIR 100 UNITS/ML VIAL SQ SCH ×2 (09:18→21:07)
[2016-09-15] MEDS: SODIUM CHLORIDE 0.9% FLUSH 5 ML FLUSH IV FLUSH SCH ×2 (09:18→21:03)
[2016-09-15] MEDS ORDERED: LORazepam 0.5 MG TAB PO PRN (09:45)
--- NOTE | 2016-09-15 09:47 | HHI.PR ---
Subjective Remarks The patient says he is nervous for his procedure today. Otherwise she has no acute complaints. He plans on taking a shower in an hour or so. He said he's been trying to sleep. Objective Vitals Vital Signs Date Time Temp Pulse Resp B/P Pulse Ox O2 Delivery O2 Flow Rate FiO2 09/15/16 07:58 97.5 83 17 116/79 96 09/15/16 00:00 96.4 79 16 130/74 99 09/14/16 20:00 97.3 91 16 131/76 96 09/14/16 16:00 97.2 82 17 135/76 96 09/14/16 12:00 97.0 74 16 147/85 98 I/O 09/14/16 09/14/16 09/14/16 09/15/16 09/15/16 09/15/16 07:00 15:00 23:00 07:00 15:00 23:00 Intake Total 100 ml 772 ml 580 ml 0 ml Output Total 1000 ml 1250 ml 700 ml 1400 ml Balance -900 ml -478 ml -120 ml -1400 ml Intake Oral 0 ml 480 ml IV Total 100 ml 772 ml 100 ml 0 ml Output Urine Total 1000 ml 1250 ml 700 ml 1400 ml # Bowel Movements 0 1 0 Result Diagram: 09/15/16 0410 09/15/16 0410 Imaging Last Impressions Abdomen/Pelvis CT 08/31/16 1308 Signed Impressions: Service Date/Time: Wednesday, August 31, 2016 13:36 - CONCLUSION: Significant air within the scrotum with soft tissue inflammation and skin thickening. Charlie's necrotizing fasciitis can have this appearance. I do not see any evidence of bowel or significant inguinal hernia. Triston Euceda MD Chest X-Ray 08/31/16 0000 Signed Impressions: Service Date/Time: Wednesday, August 31, 2016 18:32 - CONCLUSION: Left internal jugular central venous catheter in good position. No evidence of pneumothorax. Felix Caballero MD Objective Remarks GENERAL: No distress. HEENT: Normocephalic. Atraumatic. Pupils equal, reactive, round, conjugate. NECK:. Trachea is midline. There is no JVD. CHEST: Equal chest rise. Clear to auscultation. CARDIOVASCULAR: Regular rate and rhythm, no Murmurs ABDOMEN: Soft, nontender, nondistended. No guarding. : Bandage in place. MUSCULOSKELETAL: No clubbing cyanosis or edema. NEUROLOGICAL: Alert and oriented x 3, No focal deficits. PSYCH: Mood and affect appropriate. Medications and IVs Current Medications Medications (Trade) Dose Ordered Sig/Matt Route Start Time Stop Time Status Last Admin (NS Flush) 2 ml UNSCH PRN IV FLUSH 08/31/16 14:30 09/11/16 15:19 (NS Flush) 2 ml BID IV FLUSH 08/31/16 21:00 09/15/16 09:18 (Zofran Inj) 4 mg Q6H PRN IV 08/31/16 18:00 (Saima-Colace) 2 tab BID PO 08/31/16 21:00 09/15/16 09:17 Miscellaneous Information 1 Q361D XX 08/31/16 14:30 (Chlorhexidine 2% Cloth) Taper DAILY@04 TOP 09/01/16 04:00 08/28/17 03:59 09/02/16 03:02 (Chlorhexidine 2% Cloth) 3 pack UNSCH PRN TOP 08/31/16 14:30 (Flomax) 0.4 mg DAILY PO 09/01/16 09:00 09/15/16 09:17 (Narcan Inj) 0.4 mg UNSCH PRN IV 08/31/16 22:15 (Heparin Inj) 5,000 units Q8HR SQ 09/02/16 14:00 09/14/16 17:32 (Tylenol) 650 mg Q6H PO 09/02/16 09:00 09/15/16 09:17 (Dilaudid Pf Inj) 0.5 mg Q4H PRN IV PUSH 09/02/16 07:45 09/14/16 17:39 Oxycodone HCl 5 mg 5 mg Q4H PRN PO 09/02/16 07:45 09/15/16 01:42 (Unasyn Inj/NS Inj) 100 ml @ 200 mls/hr Q6H IV 09/06/16 08:00 09/15/16 09:17 (Mag-Ox) 400 mg Q12HR PO 09/06/16 09:15 09/15/16 09:17 (D50w (Vial) Inj) 25 ml UNSCH PRN IV PUSH 09/08/16 10:30 (Glucagon Inj) 1 mg UNSCH PRN OTHER 09/08/16 10:30 (Santyl Oint) 1 applic DAILY TOP 09/09/16 09:00 09/13/16 09:00 (Levemir Inj) 8 units BID SQ 09/09/16 21:00 09/15/16 09:18 (Diflucan) 100 mg DAILY PO 09/12/16 11:45 09/15/16 09:17 A/P Assessment and Plan 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 Initially on Zosyn and vancomycin. Status post I and D by Urology. ID and plastic surgery consults appreciated. - continue Unasyn per ID. - plastics scheduling skin grafting 09/15/16. Diabetes mellitus Hemoglobin A1C 8.8%. Well controlled 09/15. - continue sliding scale and Levemir. Anemia May be s/t bleeding from wound. Has improved 09/15. - continue to monitor and transfuse as needed. Anxiety Pt anxious about surgery. - lorazepam as needed. DVT prophylaxis with Heparin. Discharge Planning Awaiting surgery. Brad Soto DO Sep 15, 2016 09:47
[2016-09-15] MEDS: HYDROmorphone HCL PF 1 MG/ML VIAL IV PUSH PRN ×2 (11:31→22:45)
[2016-09-15 12:00] VITALS: BP 118/73; PULSE 74; RESP 17; TEMP 97.3; O2SAT 97
[2016-09-15 16:00] VITALS: BP 133/75; PULSE 77; RESP 17; TEMP 97; O2SAT 98
[2016-09-15 20:00] VITALS: BP 139/76; PULSE 77; RESP 18; TEMP 97.1; O2SAT 99
[2016-09-15] MEDS: MICAFUNGIN INJ 100 MG in SODIUM CHLORIDE 0.9% INJ 100 ML IV SCH (22:45)
[2016-09-15 23:29] VITALS: BP 119/69; PULSE 89; RESP 16; TEMP 98.5; O2SAT 96
[2016-09-16] MEDS: AMPICILLIN-SULBACTAM INJ 3 GM in SODIUM CHLORIDE 0.9% INJ 100 ML IV SCH ×4 (02:45→20:00)
[2016-09-16] MEDS: ACETAMINOPHEN 325 MG TAB PO SCH ×4 (02:45→21:00)
[2016-09-16] MEDS: CHLORHEXIDINE GLUCONATE 2 % 1 PACK (2 CLOTHS) TOP SCH (02:48)
[2016-09-16] MEDS: HEPARIN SODIUM - SQ 10,000 UNITS/ML VIAL SQ SCH ×3 (06:00→22:00)
[2016-09-16] MEDS: INSULIN NovoLIN REGULAR SUPPLEMENTAL SCALE SQ SCH ×4 (06:16→21:00)
[2016-09-16 08:00] VITALS: BP 132/75; PULSE 73; RESP 16; TEMP 97.5; O2SAT 99
[2016-09-16] MEDS: SODIUM CHLORIDE 0.9% FLUSH 5 ML FLUSH IV FLUSH SCH ×2 (08:29→21:00)
[2016-09-16] MEDS: TAMSULOSIN HCL 0.4 MG CAP PO SCH (08:30)
[2016-09-16] MEDS: INSULIN DETEMIR 100 UNITS/ML VIAL SQ SCH ×2 (08:30→21:00)
[2016-09-16] MEDS: COLLAGENASE OINT 30 GM TUBE TOP SCH (08:30)
[2016-09-16] MEDS: MAGNESIUM OXIDE 400 MG TAB PO SCH ×2 (08:31→21:00)
[2016-09-16] MEDS: DOCUSATE SODIUM 50 MG/SENNA 8.6 MG TAB PO SCH ×2 (08:32→21:00)
--- NOTE | 2016-09-16 08:53 | HHI.PR ---
Subjective Remarks The patient said his surgery was postponed until this afternoon. He said his pain was controlled. He said that he had some new spots on his right foot and was not sure what caused them. No other acute concerns. Discussed with nursing. Objective Vitals Vital Signs Date Time Temp Pulse Resp B/P Pulse Ox O2 Delivery O2 Flow Rate FiO2 09/15/16 23:29 98.5 89 16 119/69 96 09/15/16 20:00 97.1 77 18 139/76 99 09/15/16 16:00 97.0 77 17 133/75 98 09/15/16 12:01 16 09/15/16 12:00 97.3 74 17 118/73 97 I/O 09/15/16 09/15/16 09/15/16 09/16/16 09/16/16 09/16/16 07:00 15:00 23:00 07:00 15:00 23:00 Intake Total 0 ml 0 ml 560 ml 460 ml Output Total 1400 ml 1400 ml 350 ml 800 ml Balance -1400 ml -1400 ml 210 ml -340 ml Intake Oral 0 ml 360 ml 360 ml IV Total 0 ml 200 ml 100 ml Output Urine Total 1400 ml 1400 ml 350 ml 800 ml # Bowel Movements 0 0 0 0 Result Diagram: 09/15/16 0410 09/15/16 0410 Imaging Last Impressions Abdomen/Pelvis CT 08/31/16 1308 Signed Impressions: Service Date/Time: Wednesday, August 31, 2016 13:36 - CONCLUSION: Significant air within the scrotum with soft tissue inflammation and skin thickening. Charlie's necrotizing fasciitis can have this appearance. I do not see any evidence of bowel or significant inguinal hernia. Triston Euceda MD Chest X-Ray 08/31/16 0000 Signed Impressions: Service Date/Time: Wednesday, August 31, 2016 18:32 - CONCLUSION: Left internal jugular central venous catheter in good position. No evidence of pneumothorax. Felix Caballero MD Objective Remarks GENERAL: No distress. SKIN: Brown, macular lesions on dorsum of right foot. HEENT: Normocephalic. Atraumatic. Pupils equal, reactive, round, conjugate. NECK:. Trachea is midline. There is no JVD. CHEST: Equal chest rise. Clear to auscultation. CARDIOVASCULAR: Regular rate and rhythm, no murmurs. ABDOMEN: Soft, nontender, nondistended. No guarding. : Bandage in place. MUSCULOSKELETAL: No clubbing cyanosis or edema. NEUROLOGICAL: Alert and oriented x 3, No focal deficits. PSYCH: Mood and affect appropriate. Medications and IVs Current Medications Medications (Trade) Dose Ordered Sig/Matt Route Start Time Stop Time Status Last Admin (NS Flush) 2 ml UNSCH PRN IV FLUSH 08/31/16 14:30 09/11/16 15:19 (NS Flush) 2 ml BID IV FLUSH 08/31/16 21:00 09/16/16 08:29 (Zofran Inj) 4 mg Q6H PRN IV 08/31/16 18:00 (Saima-Colace) 2 tab BID PO 08/31/16 21:00 09/16/16 08:32 Miscellaneous Information 1 Q361D XX 08/31/16 14:30 (Chlorhexidine 2% Cloth) Taper DAILY@04 TOP 09/01/16 04:00 08/28/17 03:59 09/02/16 03:02 (Chlorhexidine 2% Cloth) 3 pack UNSCH PRN TOP 08/31/16 14:30 (Flomax) 0.4 mg DAILY PO 09/01/16 09:00 09/16/16 08:30 (Narcan Inj) 0.4 mg UNSCH PRN IV 08/31/16 22:15 (Heparin Inj) 5,000 units Q8HR SQ 09/02/16 14:00 09/15/16 14:16 (Tylenol) 650 mg Q6H PO 09/02/16 09:00 09/16/16 08:30 (Dilaudid Pf Inj) 0.5 mg Q4H PRN IV PUSH 09/02/16 07:45 09/15/16 22:45 Oxycodone HCl 5 mg 5 mg Q4H PRN PO 09/02/16 07:45 09/15/16 01:42 (Unasyn Inj/NS Inj) 100 ml @ 200 mls/hr Q6H IV 09/06/16 08:00 09/16/16 08:29 (Mag-Ox) 400 mg Q12HR PO 09/06/16 09:15 09/16/16 08:31 (D50w (Vial) Inj) 25 ml UNSCH PRN IV PUSH 09/08/16 10:30 (Glucagon Inj) 1 mg UNSCH PRN OTHER 09/08/16 10:30 (Santyl Oint) 1 applic DAILY TOP 09/09/16 09:00 09/13/16 09:00 (Levemir Inj) 8 units BID SQ 09/09/16 21:00 09/16/16 08:30 Lorazepam 0.5 mg 0.5 mg Q6H PRN PO 09/15/16 09:45 (Mycamine Inj/NS Inj) 100 ml @ 100 mls/hr Q24H IV 09/15/16 18:45 09/15/16 22:45 A/P Assessment and Plan 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 Initially on Zosyn and vancomycin. Status post I and D by Urology. ID and plastic surgery consults appreciated. - continue Unasyn per ID. - plastics scheduling skin grafting 09/15/16. Macular lesions On right foot. Unsure of etiology. Not painful or itchy. May be s/t infection or thrombocytosis. - check CBC, CMP, coags and peripheral smear. - continue to monitor. - antibiotics per ID. Thrombocytosis May be reactive. - peripheral smear. - follow CBC. Diabetes mellitus Hemoglobin A1C 8.8%. Well controlled 09/16. - continue sliding scale and Levemir. Anemia May be s/t bleeding from wound. Has improved 09/15. - continue to monitor and transfuse as needed. Anxiety Pt anxious about surgery. - lorazepam as needed. DVT prophylaxis with Heparin. Discharge Planning Awaiting surgery. Brad Soto DO Sep 16, 2016 08:53
[2016-09-16] MEDS: HYDROmorphone HCL PF 1 MG/ML VIAL IV PUSH PRN (10:30)
[2016-09-16 12:00] VITALS: BP 139/79; PULSE 81; RESP 16; TEMP 96.8; O2SAT 97
[2016-09-16] MEDS ORDERED: PROPOFOL 200 MG/20 ML AMP IV ONE (12:00)
[2016-09-16] MEDS ORDERED: LACTATED RINGER'S 1000 ML INJ 1,000 ML IV ONE (12:00)
[2016-09-16] MEDS ORDERED: NEOSTIGMINE 3 MG/3 ML SYR IV ONE (12:00)
[2016-09-16] MEDS ORDERED: ONDANSETRON HCL 4 MG/2 ML VIAL IV PUSH ONE (12:00)
[2016-09-16 12:56] LABS: AUTOMATED NEUTROPHIL # 6.3 TH/MM3 (1.8-7.7); BASOPHIL # 0.1 TH/MM3 (0-0.2); BASOPHIL % 1.4 % (0.0-2.0); EOSINOPHIL # 0.1 TH/MM3 (0-0.4); EOSINOPHIL % 1.7 % (0.0-4.0); HEMATOCRIT 32.4 % (39.0-51.0); HEMO FLAGS DIFF FINAL; LYMPH % 19.9 % (9.0-44.0); LYMPHOCYTE # 1.8 TH/MM3 (1.0-4.8); MEAN CELL VOLUME 94.3 FL (80.0-100.0); MEAN CORPUSCULAR HEMOGLOBIN 30.9 PG (27.0-34.0); MEAN CORPUSCULAR HGB CONC 32.8 % (32.0-36.0); MONO % 6.3 % (0.0-8.0); NEUT % 70.7 % (16.0-70.0); PLATELET COUNT 683 TH/MM3 (150-450); RED BLOOD COUNT 3.44 MIL/MM3 (4.50-5.90); RED CELL DISTRIBUTION WIDTH 13.9 % (11.6-17.2); WHITE BLOOD COUNT 8.8 TH/MM3 (4.0-11.0)
[2016-09-16 13:03] LABS: CHLORIDE 103 MEQ/L (98-107); POTASSIUM 4.4 MEQ/L (3.5-5.1); SODIUM (NA) 137 MEQ/L (136-145)
[2016-09-16 13:04] LABS: APTT (PATIENT) 24.5 SEC (24.3-30.1); INTERNATIONAL NORMALIZED RATIO 0.9 RATIO; PROTHROMBIN TIME - PATIENT 10.3 SEC (9.8-11.6)
[2016-09-16 13:19] LABS: ALKALINE PHOSPHATASE 87 U/L (45-117); ALT (GPT) 27 U/L (12-78); ANION GAP 8 MEQ/L (5-15); AST (GOT) 18 U/L (15-37); BICARBONATE 26.2 MEQ/L (21.0-32.0); BLOOD UREA NITROGEN 20 MG/DL (7-18); GLOMERULAR FILTRATION RATE 65 ML/MIN (>89)
[2016-09-16 13:20] LABS: TOTAL BILIRUBIN ADULT 0.2 MG/DL (0.2-1.0)
--- NOTE | 2016-09-16 15:13 | HHI.IDPN ---
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 Overnight events reviewed. No fever No rash No diarrhea Plan for reconstructive flap on Wed this week. Antibiotics Unasyn IV Micafungin IV Lines Line sites with no e.o infection Past Medical History reviewed Allergies: Coded Allergies: No Known Allergies (Unverified , 08/31/16) Objective . Vital Signs Date Time Temp Pulse Resp B/P Pulse Ox O2 Delivery O2 Flow Rate FiO2 09/16/16 12:00 96.8 81 16 139/79 97 09/16/16 08:00 97.5 73 16 132/75 99 09/15/16 23:29 98.5 89 16 119/69 96 09/15/16 20:00 97.1 77 18 139/76 99 09/15/16 16:00 97.0 77 17 133/75 98 09/15/16 09/15/16 09/16/16 15:00 23:00 07:00 Intake Total 0 ml 560 ml 460 ml Output Total 1400 ml 350 ml 800 ml Balance -1400 ml 210 ml -340 ml Intake Oral 0 ml 360 ml 360 ml IV Total 200 ml 100 ml Output Urine Total 1400 ml 350 ml 800 ml # Bowel Movements 0 0 0 . Laboratory Tests Test 09/15/16 09/16/16 04:10 12:26 White Blood Count 8.3 TH/MM3 8.8 TH/MM3 Red Blood Count 3.27 MIL/MM3 3.44 MIL/MM3 Hemoglobin 10.2 GM/DL 10.6 GM/DL Hematocrit 30.5 % 32.4 % Mean Corpuscular Volume 93.2 FL 94.3 FL Mean Corpuscular Hemoglobin 31.1 PG 30.9 PG Mean Corpuscular Hemoglobin 33.4 % 32.8 % Concent Red Cell Distribution Width 13.7 % 13.9 % Platelet Count 774 TH/MM3 683 TH/MM3 Mean Platelet Volume 7.1 FL 6.9 FL Neutrophils (%) (Auto) 70.7 % Lymphocytes (%) (Auto) 19.9 % Monocytes (%) (Auto) 6.3 % Eosinophils (%) (Auto) 1.7 % Basophils (%) (Auto) 1.4 % Neutrophils # (Auto) 6.3 TH/MM3 Lymphocytes # (Auto) 1.8 TH/MM3 Monocytes # (Auto) 0.6 TH/MM3 Eosinophils # (Auto) 0.1 TH/MM3 Basophils # (Auto) 0.1 TH/MM3 CBC Comment DIFF FINAL Differential Comment Blood Smear Pathologist Review Laboratory Tests Test 09/15/16 09/16/16 04:10 12:26 Sodium Level 137 MEQ/L 137 MEQ/L Potassium Level 4.2 MEQ/L 4.4 MEQ/L Chloride Level 101 MEQ/L 103 MEQ/L Carbon Dioxide Level 27.1 MEQ/L 26.2 MEQ/L Anion Gap 9 MEQ/L 8 MEQ/L Blood Urea Nitrogen 16 MG/DL 20 MG/DL Creatinine 1.08 MG/DL 1.19 MG/DL Estimat Glomerular Filtration 72 ML/MIN 65 ML/MIN Rate Random Glucose 135 MG/DL 237 MG/DL Calcium Level 8.6 MG/DL 8.8 MG/DL Magnesium Level 2.1 MG/DL Total Bilirubin 0.2 MG/DL Aspartate Amino Transf 18 U/L (AST/SGOT) Alanine Aminotransferase 27 U/L (ALT/SGPT) Alkaline Phosphatase 87 U/L Total Protein 6.9 GM/DL Albumin 2.5 GM/DL Imaging Last Impressions Abdomen/Pelvis CT 08/31/16 1308 Signed Impressions: Service Date/Time: Wednesday, August 31, 2016 13:36 - CONCLUSION: Significant air within the scrotum with soft tissue inflammation and skin thickening. Charlie's necrotizing fasciitis can have this appearance. I do not see any evidence of bowel or significant inguinal hernia. Triston Euceda MD Chest X-Ray 08/31/16 0000 Signed Impressions: Service Date/Time: Wednesday, August 31, 2016 18:32 - CONCLUSION: Left internal jugular central venous catheter in good position. No evidence of pneumothorax. Felix Caballero MD Physical Exam GENERAL: This is a well-nourished, well-developed patient, in no apparent distress. SKIN: No rashes, ecchymoses or lesions. Cool and dry. HEAD: Atraumatic. Normocephalic. No temporal or scalp tenderness. EYES: Pupils equal round and reactive. Extraocular motions intact. No scleral icterus. No injection or drainage. ENT: Nose without bleeding, purulent drainage or septal hematoma. Throat without erythema, tonsillar hypertrophy or exudate. Uvula midline. Airway patent. NECK: Trachea midline. Supple, nontender, no meningeal signs. CARDIOVASCULAR: Heart sounds audible. No murmur appreciated. RESPIRATORY: Clear to auscultation. Breath sounds equal bilaterally. GASTROINTESTINAL: Abdomen soft, non-tender, nondistended. No hepato-splenomegaly , or palpable masses. No guarding. MUSCULOSKELETAL: Extremities without clubbing, cyanosis, or edema. No joint tenderness, effusion, or edema noted. No calf tenderness. Negative Homans sign bilaterally. NEUROLOGICAL: Awake and alert. Grossly nonfocal. Genitourinary examination: deferred Psych cooperative IV line sites with no evidence of infection. Assessment & Plan Remarks Sepsis present on admission controlled now. Source likely Charlie's gangrene Now with yeast infection ? secondary over growth while on antibiotics. New onset diabetes mellitus Recommendations Continue Unasyn IV plan on 4 weeks IV followed by 2 wks oral depending on clinical response. Continue Micafungin IV (C.glabrata in wound) Follow cultures Follow clinically. Will follow prn. Post reconstruction surgery will reassess. I will be OOT from 09/17/16 to 09/24/16 other ID MDs covering for me. Kate Thompson MD Sep 16, 2016 15:13
[2016-09-16 16:00] VITALS: BP 130/74; PULSE 74; RESP 16; TEMP 96.9; O2SAT 97
[2016-09-16] MEDS ORDERED: BUPIVACAINE/EPINEPHRINE 0.5% PF 30 ML VIAL ONE (16:33)
[2016-09-16] MEDS ORDERED: BUPIVACAINE HCL PF 0.5% 30 ML VIAL ONE (16:33)
[2016-09-16] MEDS ORDERED: BACITRACIN TOP OINT 15 GM TUBE ONE (16:34)
[2016-09-16] MEDS ORDERED: MINERAL OIL 10 ML VIAL ONE (16:34)
[2016-09-16] MEDS ORDERED: LIDOCAINE 1%/EPINEPHrine 1:100,000 SOLN 50 ML VIAL ONE (16:34)
[2016-09-16] MEDS: MICAFUNGIN INJ 100 MG in SODIUM CHLORIDE 0.9% INJ 100 ML IV SCH (17:56)
[2016-09-16] MEDS ORDERED: fentaNYL CITRATE 250 MCG/5 ML AMP ONE (21:02)
[2016-09-16] MEDS ORDERED: MORPHINE SULFATE 4 MG/ML INJ ONE ×2 (21:16→21:56)
[2016-09-16 23:00] VITALS: BP 166/83; PULSE 76; RESP 17; TEMP 95.3; O2SAT 99
[2016-09-17] MEDS: AMPICILLIN-SULBACTAM INJ 3 GM in SODIUM CHLORIDE 0.9% INJ 100 ML IV SCH ×4 (00:10→22:51)
[2016-09-17] MEDS: HYDROmorphone HCL PF 1 MG/ML VIAL IV PUSH PRN ×4 (00:12→22:45)
[2016-09-17] MEDS: ACETAMINOPHEN 325 MG TAB PO SCH ×4 (03:05→22:52)
[2016-09-17] MEDS: CHLORHEXIDINE GLUCONATE 2 % 1 PACK (2 CLOTHS) TOP SCH (03:06)
[2016-09-17 04:00] VITALS: BP 128/71; PULSE 89; RESP 17; TEMP 98.1; O2SAT 97
[2016-09-17] MEDS: HEPARIN SODIUM - SQ 10,000 UNITS/ML VIAL SQ SCH ×3 (06:00→22:53)
[2016-09-17] MEDS: INSULIN NovoLIN REGULAR SUPPLEMENTAL SCALE SQ SCH ×4 (06:12→22:57)
[2016-09-17 08:00] VITALS: BP 133/83; PULSE 95; RESP 20; TEMP 98.1; O2SAT 97
[2016-09-17] MEDS: COLLAGENASE OINT 30 GM TUBE TOP SCH (09:00)
[2016-09-17] MEDS: DOCUSATE SODIUM 50 MG/SENNA 8.6 MG TAB PO SCH ×2 (09:29→22:52)
[2016-09-17] MEDS: TAMSULOSIN HCL 0.4 MG CAP PO SCH (09:29)
[2016-09-17] MEDS: MAGNESIUM OXIDE 400 MG TAB PO SCH ×2 (09:29→22:52)
[2016-09-17] MEDS: SODIUM CHLORIDE 0.9% FLUSH 5 ML FLUSH IV FLUSH SCH ×2 (09:30→22:51)
[2016-09-17] MEDS: INSULIN DETEMIR 100 UNITS/ML VIAL SQ SCH ×2 (09:30→22:57)
--- NOTE | 2016-09-17 09:49 | HHI.PR ---
Subjective Remarks The patient tolerated the surgery well. He said his pain level was elevated but the Dilaudid was working. In no acute complaints. Discussed with nursing. Objective Vitals Vital Signs Date Time Temp Pulse Resp B/P Pulse Ox O2 Delivery O2 Flow Rate FiO2 09/17/16 04:00 98.1 89 17 128/71 97 09/16/16 23:00 95.3 76 17 166/83 99 09/16/16 22:10 97.5 74 14 150/87 97 Nasal Cannula 3 09/16/16 22:00 72 14 165/93 99 Nasal Cannula 3 09/16/16 21:45 71 16 167/94 98 Nasal Cannula 3 09/16/16 21:30 68 14 164/91 99 Nasal Cannula 3 09/16/16 21:15 61 14 150/86 97 Nasal Cannula 3 09/16/16 21:00 73 15 133/75 97 Nasal Cannula 3 09/16/16 20:54 97.6 82 12 129/71 96 Nasal Cannula 3 09/16/16 16:00 96.9 74 16 130/74 97 09/16/16 12:00 96.8 81 16 139/79 97 I/O 09/16/16 09/16/16 09/16/16 09/17/16 09/17/16 09/17/16 07:00 15:00 23:00 07:00 15:00 23:00 Intake Total 460 ml 240 ml 2440 ml 340 ml Output Total 800 ml 700 ml 650 ml 1500 ml Balance -340 ml -460 ml 1790 ml -1160 ml Intake Oral 360 ml 240 ml 240 ml 240 ml IV Total 100 ml 0 ml 100 ml Other 2200 ml Output Urine Total 800 ml 700 ml 600 ml 1500 ml Estimated Blood Loss 50 ml # Bowel Movements 0 0 Result Diagram: 09/16/16 1226 09/16/16 1226 Imaging Last Impressions Abdomen/Pelvis CT 08/31/16 1308 Signed Impressions: Service Date/Time: Wednesday, August 31, 2016 13:36 - CONCLUSION: Significant air within the scrotum with soft tissue inflammation and skin thickening. Charlie's necrotizing fasciitis can have this appearance. I do not see any evidence of bowel or significant inguinal hernia. Triston Euceda MD Chest X-Ray 08/31/16 0000 Signed Impressions: Service Date/Time: Wednesday, August 31, 2016 18:32 - CONCLUSION: Left internal jugular central venous catheter in good position. No evidence of pneumothorax. Felix Caballero MD Objective Remarks GENERAL: No distress. SKIN: Brown, macular lesions on dorsum of right foot. HEENT: Normocephalic. Atraumatic. Pupils equal, reactive, round, conjugate. NECK:. Trachea is midline. There is no JVD. CHEST: Equal chest rise. Clear to auscultation. CARDIOVASCULAR: Regular rate and rhythm, no murmurs. ABDOMEN: Soft, nontender, nondistended. No guarding. : Bandage in place. MUSCULOSKELETAL: No clubbing cyanosis or edema. NEUROLOGICAL: Alert and oriented x 3, No focal deficits. PSYCH: Mood and affect appropriate. Procedures Skin graft 09/16 Medications and IVs Current Medications Medications (Trade) Dose Ordered Sig/Matt Route Start Time Stop Time Status Last Admin (NS Flush) 2 ml UNSCH PRN IV FLUSH 08/31/16 14:30 09/11/16 15:19 (NS Flush) 2 ml BID IV FLUSH 08/31/16 21:00 09/17/16 09:30 (Zofran Inj) 4 mg Q6H PRN IV 08/31/16 18:00 (Saima-Colace) 2 tab BID PO 08/31/16 21:00 09/17/16 09:29 Miscellaneous Information 1 Q361D XX 08/31/16 14:30 (Chlorhexidine 2% Cloth) Taper DAILY@04 TOP 09/01/16 04:00 08/28/17 03:59 09/02/16 03:02 (Chlorhexidine 2% Cloth) 3 pack UNSCH PRN TOP 08/31/16 14:30 (Flomax) 0.4 mg DAILY PO 09/01/16 09:00 09/17/16 09:29 (Narcan Inj) 0.4 mg UNSCH PRN IV 08/31/16 22:15 (Heparin Inj) 5,000 units Q8HR SQ 09/02/16 14:00 09/15/16 14:16 (Tylenol) 650 mg Q6H PO 09/02/16 09:00 09/17/16 09:30 (Dilaudid Pf Inj) 0.5 mg Q4H PRN IV PUSH 09/02/16 07:45 09/17/16 06:10 Oxycodone HCl 5 mg 5 mg Q4H PRN PO 09/02/16 07:45 09/15/16 01:42 (Unasyn Inj/NS Inj) 100 ml @ 200 mls/hr Q6H IV 09/06/16 08:00 09/17/16 09:28 (Mag-Ox) 400 mg Q12HR PO 09/06/16 09:15 09/17/16 09:29 (D50w (Vial) Inj) 25 ml UNSCH PRN IV PUSH 09/08/16 10:30 (Glucagon Inj) 1 mg UNSCH PRN OTHER 09/08/16 10:30 (Santyl Oint) 1 applic DAILY TOP 09/09/16 09:00 09/13/16 09:00 (Levemir Inj) 8 units BID SQ 09/09/16 21:00 09/17/16 09:30 Lorazepam 0.5 mg 0.5 mg Q6H PRN PO 09/15/16 09:45 (Mycamine Inj/NS Inj) 100 ml @ 100 mls/hr Q24H IV 09/15/16 18:45 09/16/16 17:56 A/P Assessment and Plan 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 Initially on Zosyn and vancomycin. Status post I and D by Urology. ID and plastic surgery consults appreciated. S/p grafting by plastics . - continue Unasyn per ID. - wound management per plastic surgery. - pain meds with a bowel regimen. Macular lesions On right foot. Unsure of etiology. Not painful or itchy. May be s/t infection or thrombocytosis. Peripheral smear unremarkable. - continue to monitor. - antibiotics per ID. Thrombocytosis May be reactive. Stable. - follow CBC. Diabetes mellitus Hemoglobin A1C 8.8%. Well controlled 09/17. - continue sliding scale and Levemir. Anemia May be s/t bleeding from wound. Has improved 09/16. - continue to monitor and transfuse as needed. DVT prophylaxis with Heparin. Discharge Planning Awaiting clinical improvement. Brad Soto DO Sep 17, 2016 09:49
--- NOTE | 2016-09-17 11:04 | PD.PLAS.PN ---
Subjective Remarks Patient doing very well postop Minimal pain No bleeding at surg site Discussed first dressing change in 48 hours or so. Xeroform will stay for 7+ days He is expected to stay in house for another week on the IV antibiotics. Limited ambulation only - to avoid shearing the graft. Vital Signs Date Time Temp Pulse Resp B/P Pulse Ox O2 Delivery O2 Flow Rate FiO2 09/17/16 08:00 98.1 95 20 133/83 97 09/17/16 04:00 98.1 89 17 128/71 97 09/16/16 23:00 95.3 76 17 166/83 99 09/16/16 22:10 97.5 74 14 150/87 97 Nasal Cannula 3 09/16/16 22:00 72 14 165/93 99 Nasal Cannula 3 09/16/16 21:45 71 16 167/94 98 Nasal Cannula 3 09/16/16 21:30 68 14 164/91 99 Nasal Cannula 3 09/16/16 21:15 61 14 150/86 97 Nasal Cannula 3 09/16/16 21:00 73 15 133/75 97 Nasal Cannula 3 09/16/16 20:54 97.6 82 12 129/71 96 Nasal Cannula 3 09/16/16 16:00 96.9 74 16 130/74 97 09/16/16 12:00 96.8 81 16 139/79 97 I/O 09/16/16 09/16/16 09/16/16 09/17/16 09/17/16 09/17/16 07:00 15:00 23:00 07:00 15:00 23:00 Intake Total 460 ml 240 ml 2440 ml 340 ml Output Total 800 ml 700 ml 650 ml 1500 ml Balance -340 ml -460 ml 1790 ml -1160 ml Intake Oral 360 ml 240 ml 240 ml 240 ml IV Total 100 ml 0 ml 100 ml Other 2200 ml Output Urine Total 800 ml 700 ml 600 ml 1500 ml Estimated Blood Loss 50 ml # Bowel Movements 0 0 Laboratory Tests Test 09/16/16 12:26 White Blood Count 8.8 Red Blood Count 3.44 Hemoglobin 10.6 Hematocrit 32.4 Mean Corpuscular Volume 94.3 Mean Corpuscular Hemoglobin 30.9 Mean Corpuscular Hemoglobin 32.8 Concent Red Cell Distribution Width 13.9 Platelet Count 683 Mean Platelet Volume 6.9 Neutrophils (%) (Auto) 70.7 Lymphocytes (%) (Auto) 19.9 Monocytes (%) (Auto) 6.3 Eosinophils (%) (Auto) 1.7 Basophils (%) (Auto) 1.4 Neutrophils # (Auto) 6.3 Lymphocytes # (Auto) 1.8 Monocytes # (Auto) 0.6 Eosinophils # (Auto) 0.1 Basophils # (Auto) 0.1 CBC Comment DIFF FINAL Differential Comment Blood Smear Pathologist Review Prothrombin Time 10.3 Prothromb Time International 0.9 Ratio Activated Partial 24.5 Thromboplast Time Sodium Level 137 Potassium Level 4.4 Chloride Level 103 Carbon Dioxide Level 26.2 Anion Gap 8 Blood Urea Nitrogen 20 Creatinine 1.19 Estimat Glomerular Filtration 65 Rate Random Glucose 237 Calcium Level 8.8 Total Bilirubin 0.2 Aspartate Amino Transf 18 (AST/SGOT) Alanine Aminotransferase 27 (ALT/SGPT) Alkaline Phosphatase 87 Total Protein 6.9 Albumin 2.5 Result Diagram: 09/16/16 1226 09/16/16 1226 Jeet Lainez MD Sep 17, 2016 11:04
[2016-09-17 12:00] VITALS: BP 126/73; PULSE 76; RESP 18; TEMP 97.9; O2SAT 97
[2016-09-17 16:00] VITALS: BP 132/78; PULSE 78; RESP 18; TEMP 98.5; O2SAT 98
[2016-09-17] MEDS: MICAFUNGIN INJ 100 MG in SODIUM CHLORIDE 0.9% INJ 100 ML IV SCH (19:38)
[2016-09-17 20:00] VITALS: BP 151/89; PULSE 75; RESP 17; TEMP 98; O2SAT 98
[2016-09-18] VITALS: BP 135/84; PULSE 80; RESP 17; TEMP 98.3; O2SAT 98
[2016-09-18] MEDS: AMPICILLIN-SULBACTAM INJ 3 GM in SODIUM CHLORIDE 0.9% INJ 100 ML IV SCH ×4 (02:42→21:21)
[2016-09-18] MEDS: ACETAMINOPHEN 325 MG TAB PO SCH ×4 (02:43→21:21)
[2016-09-18 05:12] LABS: HEMATOCRIT 29.6 % (39.0-51.0); MEAN CELL VOLUME 94.8 FL (80.0-100.0); MEAN CORPUSCULAR HEMOGLOBIN 31.4 PG (27.0-34.0); MEAN CORPUSCULAR HGB CONC 33.1 % (32.0-36.0); PLATELET COUNT 462 TH/MM3 (150-450); RED BLOOD COUNT 3.12 MIL/MM3 (4.50-5.90); RED CELL DISTRIBUTION WIDTH 13.8 % (11.6-17.2); REVIEW FLAG FINAL; WHITE BLOOD COUNT 8.4 TH/MM3 (4.0-11.0)
[2016-09-18] MEDS: HEPARIN SODIUM - SQ 10,000 UNITS/ML VIAL SQ SCH ×3 (05:34→21:22)
[2016-09-18 05:36] LABS: BICARBONATE 25.8 MEQ/L (21.0-32.0); MAGNESIUM 1.9 MG/DL (1.5-2.5); POTASSIUM 4.4 MEQ/L (3.5-5.1)
[2016-09-18] MEDS: INSULIN NovoLIN REGULAR SUPPLEMENTAL SCALE SQ SCH ×4 (05:38→21:34)
[2016-09-18 08:00] VITALS: BP 144/85; PULSE 80; RESP 18; TEMP 98.9; O2SAT 96
[2016-09-18] MEDS: COLLAGENASE OINT 30 GM TUBE TOP SCH (09:00)
[2016-09-18] MEDS: TAMSULOSIN HCL 0.4 MG CAP PO SCH (09:13)
[2016-09-18] MEDS: MAGNESIUM OXIDE 400 MG TAB PO SCH ×2 (09:13→21:21)
[2016-09-18] MEDS: DOCUSATE SODIUM 50 MG/SENNA 8.6 MG TAB PO SCH ×2 (09:13→21:20)
[2016-09-18] MEDS: HYDROmorphone HCL PF 1 MG/ML VIAL IV PUSH PRN ×2 (09:14→22:40)
[2016-09-18] MEDS: SODIUM CHLORIDE 0.9% FLUSH 5 ML FLUSH IV FLUSH SCH ×2 (09:14→21:22)
[2016-09-18] MEDS: INSULIN DETEMIR 100 UNITS/ML VIAL SQ SCH ×2 (09:14→21:21)
--- NOTE | 2016-09-18 10:07 | HHI.PR ---
Subjective Remarks The pt was resting comfortably. He said the oxycodone wasn't working but he said the Dilaudid was. He has not had a bowel movement in a couple of days. He has been eating well. No acute complaints. Objective Vitals Vital Signs Date Time Temp Pulse Resp B/P Pulse Ox O2 Delivery O2 Flow Rate FiO2 09/18/16 08:00 98.9 80 18 144/85 96 09/18/16 00:00 98.3 80 17 135/84 98 09/17/16 20:00 98.0 75 17 151/89 98 09/17/16 16:00 98.5 78 18 132/78 98 09/17/16 12:00 97.9 76 18 126/73 97 I/O 09/17/16 09/17/16 09/17/16 09/18/16 09/18/16 09/18/16 07:00 15:00 23:00 07:00 15:00 23:00 Intake Total 340 ml 600 ml 100 ml 820 ml Output Total 1500 ml 600 ml 1450 ml Balance -1160 ml 0 ml 100 ml -630 ml Intake Oral 240 ml 600 ml 720 ml IV Total 100 ml 100 ml 100 ml Output Urine Total 1500 ml 600 ml 1450 ml # Bowel Movements 0 Result Diagram: 09/18/16 0328 09/18/16 0328 Imaging Last Impressions Abdomen/Pelvis CT 08/31/16 1308 Signed Impressions: Service Date/Time: Wednesday, August 31, 2016 13:36 - CONCLUSION: Significant air within the scrotum with soft tissue inflammation and skin thickening. Charlie's necrotizing fasciitis can have this appearance. I do not see any evidence of bowel or significant inguinal hernia. Triston Euceda MD Chest X-Ray 08/31/16 0000 Signed Impressions: Service Date/Time: Wednesday, August 31, 2016 18:32 - CONCLUSION: Left internal jugular central venous catheter in good position. No evidence of pneumothorax. Felix Caballero MD Objective Remarks GENERAL: No distress. SKIN: Brown, macular lesions on dorsum of right foot. HEENT: Normocephalic. Atraumatic. Pupils equal, reactive, round, conjugate. NECK:. Trachea is midline. There is no JVD. CHEST: Equal chest rise. Clear to auscultation. CARDIOVASCULAR: Regular rate and rhythm, no murmurs. ABDOMEN: Soft, nontender, nondistended. No guarding. : Bandage in place. MUSCULOSKELETAL: No clubbing cyanosis or edema. NEUROLOGICAL: Alert and oriented x 3, No focal deficits. PSYCH: Mood and affect appropriate. Procedures Skin graft 09/16 Medications and IVs Current Medications Medications (Trade) Dose Ordered Sig/Matt Route Start Time Stop Time Status Last Admin (NS Flush) 2 ml UNSCH PRN IV FLUSH 08/31/16 14:30 09/11/16 15:19 (NS Flush) 2 ml BID IV FLUSH 08/31/16 21:00 09/18/16 09:14 (Zofran Inj) 4 mg Q6H PRN IV 08/31/16 18:00 (Saima-Colace) 2 tab BID PO 08/31/16 21:00 09/18/16 09:13 Miscellaneous Information 1 Q361D XX 08/31/16 14:30 (Flomax) 0.4 mg DAILY PO 09/01/16 09:00 09/18/16 09:13 (Narcan Inj) 0.4 mg UNSCH PRN IV 08/31/16 22:15 (Heparin Inj) 5,000 units Q8HR SQ 09/02/16 14:00 09/18/16 05:34 (Tylenol) 650 mg Q6H PO 09/02/16 09:00 09/18/16 09:14 (Dilaudid Pf Inj) 0.5 mg Q4H PRN IV PUSH 09/02/16 07:45 09/18/16 09:14 Oxycodone HCl 5 mg 5 mg Q4H PRN PO 09/02/16 07:45 09/15/16 01:42 (Unasyn Inj/NS Inj) 100 ml @ 200 mls/hr Q6H IV 09/06/16 08:00 09/18/16 09:13 (Mag-Ox) 400 mg Q12HR PO 09/06/16 09:15 09/18/16 09:13 (D50w (Vial) Inj) 25 ml UNSCH PRN IV PUSH 09/08/16 10:30 (Glucagon Inj) 1 mg UNSCH PRN OTHER 09/08/16 10:30 (Santyl Oint) 1 applic DAILY TOP 09/09/16 09:00 09/13/16 09:00 (Levemir Inj) 8 units BID SQ 09/09/16 21:00 09/18/16 09:14 Lorazepam 0.5 mg 0.5 mg Q6H PRN PO 09/15/16 09:45 (Mycamine Inj/NS Inj) 100 ml @ 100 mls/hr Q24H IV 09/15/16 18:45 09/17/16 19:38 (Roxicodone) 20 mg Q4H PRN PO 09/18/16 13:45 UNV A/P Assessment and Plan 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 Initially on Zosyn and vancomycin. Status post I and D by Urology. ID and plastic surgery consults appreciated. S/p grafting by plastics . - continue Unasyn per ID. - wound management per plastic surgery. - pain meds with a bowel regimen. Macular lesions On right foot. Unsure of etiology. Not painful or itchy. May be s/t infection or thrombocytosis. Peripheral smear unremarkable. - continue to monitor. - antibiotics per ID. Thrombocytosis May be reactive. - follow CBC. Improved. Diabetes mellitus Hemoglobin A1C 8.8%. Well controlled 09/18. - continue sliding scale and Levemir. Anemia May be s/t bleeding from wound. Stable 09/18. - continue to monitor and transfuse as needed. DVT prophylaxis with Heparin. Discharge Planning Awaiting clinical improvement. Brad Soto DO Sep 18, 2016 10:07
[2016-09-18 12:00] VITALS: BP 166/89; PULSE 82; RESP 18; O2SAT 95
[2016-09-18] MEDS: ONDANSETRON HCL 4 MG/2 ML VIAL IV PRN ×2 (14:55→21:34)
[2016-09-18 16:00] VITALS: BP 128/79; PULSE 83; RESP 20; TEMP 97.8; O2SAT 95
[2016-09-18] MEDS: MICAFUNGIN INJ 100 MG in SODIUM CHLORIDE 0.9% INJ 100 ML IV SCH (18:26)
[2016-09-18 20:29] VITALS: BP 142/76; PULSE 72; RESP 18; TEMP 96.9; O2SAT 95
[2016-09-19 00:08] VITALS: BP 140/82; PULSE 78; RESP 18; TEMP 97.6; O2SAT 96
[2016-09-19] MEDS: AMPICILLIN-SULBACTAM INJ 3 GM in SODIUM CHLORIDE 0.9% INJ 100 ML IV SCH ×4 (02:37→21:15)
[2016-09-19] MEDS: ACETAMINOPHEN 325 MG TAB PO SCH ×4 (02:37→21:12)
[2016-09-19] MEDS: ONDANSETRON HCL 4 MG/2 ML VIAL IV PRN ×2 (02:43→11:03)
[2016-09-19] MEDS: HEPARIN SODIUM - SQ 10,000 UNITS/ML VIAL SQ SCH ×3 (06:14→22:27)
[2016-09-19] MEDS: INSULIN NovoLIN REGULAR SUPPLEMENTAL SCALE SQ SCH ×4 (06:14→21:14)
[2016-09-19 08:00] VITALS: BP 117/71; PULSE 69; RESP 18; TEMP 97.5; O2SAT 96
[2016-09-19] MEDS: INSULIN DETEMIR 100 UNITS/ML VIAL SQ SCH ×2 (08:59→21:00)
[2016-09-19] MEDS: DOCUSATE SODIUM 50 MG/SENNA 8.6 MG TAB PO SCH ×2 (08:59→21:13)
[2016-09-19] MEDS: SODIUM CHLORIDE 0.9% FLUSH 5 ML FLUSH IV FLUSH SCH ×2 (08:59→21:00)
[2016-09-19] MEDS: MAGNESIUM OXIDE 400 MG TAB PO SCH ×2 (09:00→21:13)
[2016-09-19] MEDS: TAMSULOSIN HCL 0.4 MG CAP PO SCH (09:00)
[2016-09-19] MEDS: COLLAGENASE OINT 30 GM TUBE TOP SCH (09:00)
[2016-09-19] MEDS: HYDROmorphone HCL PF 1 MG/ML VIAL IV PUSH PRN (10:56)
[2016-09-19 12:00] VITALS: BP 121/63; PULSE 77; RESP 20; TEMP 96.9; O2SAT 98
--- NOTE | 2016-09-19 12:16 | HHI.PR ---
Subjective Remarks The patient said the pain medications were making him nauseous. He said his pain was controlled well enough. He said that his dressings were changed by thoracic surgery this morning. He still has not had a bowel movement for a few days. No other acute complaints. Discussed with nursing. Objective Vitals Vital Signs Date Time Temp Pulse Resp B/P Pulse Ox O2 Delivery O2 Flow Rate FiO2 09/19/16 08:00 97.5 69 18 117/71 96 09/19/16 05:23 18 09/19/16 00:08 97.6 78 18 140/82 96 09/18/16 23:57 18 09/18/16 20:29 96.9 72 18 142/76 95 09/18/16 16:00 97.8 83 20 128/79 95 I/O 09/18/16 09/18/16 09/18/16 09/19/16 09/19/16 09/19/16 07:00 15:00 23:00 07:00 15:00 23:00 Intake Total 820 ml 1000 ml 360 ml 570 ml Output Total 1450 ml 800 ml 500 ml 600 ml Balance -630 ml 200 ml -140 ml -30 ml Intake Oral 720 ml 1000 ml 360 ml 360 ml IV Total 100 ml 0 ml 210 ml Output Urine Total 1450 ml 800 ml 500 ml 600 ml # Bowel Movements 0 Result Diagram: 09/18/16 0328 09/18/16 0328 Imaging Last Impressions Abdomen/Pelvis CT 08/31/16 1308 Signed Impressions: Service Date/Time: Wednesday, August 31, 2016 13:36 - CONCLUSION: Significant air within the scrotum with soft tissue inflammation and skin thickening. Charlie's necrotizing fasciitis can have this appearance. I do not see any evidence of bowel or significant inguinal hernia. Triston Euceda MD Chest X-Ray 08/31/16 0000 Signed Impressions: Service Date/Time: Wednesday, August 31, 2016 18:32 - CONCLUSION: Left internal jugular central venous catheter in good position. No evidence of pneumothorax. Felix Caballero MD Objective Remarks GENERAL: No distress. SKIN: Brown, macular lesions on dorsum of right foot. HEENT: Normocephalic. Atraumatic. Pupils equal, reactive, round, conjugate. NECK:. Trachea is midline. There is no JVD. CHEST: Equal chest rise. Clear to auscultation. CARDIOVASCULAR: Regular rate and rhythm, no murmurs. ABDOMEN: Soft, nontender, nondistended. No guarding. : Bandage in place. MUSCULOSKELETAL: No clubbing cyanosis or edema. NEUROLOGICAL: Alert and oriented x 3, No focal deficits. PSYCH: Mood and affect appropriate. Procedures Skin graft 09/16 A/P Assessment and Plan 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 Initially on Zosyn and vancomycin. Status post I and D by Urology. ID and plastic surgery consults appreciated. S/p grafting by plastics . - continue Unasyn per ID. - wound management per plastic surgery. - pain meds with a bowel regimen. Macular lesions On right foot. Unsure of etiology. Not painful or itchy. May be s/t infection or thrombocytosis. Peripheral smear unremarkable. - continue to monitor. Stable. - antibiotics per ID. Thrombocytosis May be reactive. - follow CBC. Improved. Diabetes mellitus Hemoglobin A1C 8.8%. Well controlled 09/19. - continue sliding scale and Levemir. Anemia May be s/t bleeding from wound. Stable 09/18. - continue to monitor and transfuse as needed. DVT prophylaxis with Heparin. Discharge Planning Awaiting clinical improvement. Brad Soto DO Sep 19, 2016 12:16
[2016-09-19] MEDS: POLYETHYLENE GLYCOL 17 GM PKG PO SCH (15:27)
[2016-09-19 16:00] VITALS: BP 113/71; PULSE 73; RESP 18; TEMP 96.4; O2SAT 96
[2016-09-19] MEDS: MICAFUNGIN INJ 100 MG in SODIUM CHLORIDE 0.9% INJ 100 ML IV SCH (18:44)
[2016-09-19 20:15] VITALS: BP 116/70; PULSE 79; RESP 18; TEMP 96.7; O2SAT 96
[2016-09-20 00:14] VITALS: BP 136/77; PULSE 78; RESP 17; TEMP 97.7; O2SAT 94
[2016-09-20] MEDS: ACETAMINOPHEN 325 MG TAB PO SCH ×4 (03:17→21:06)
[2016-09-20] MEDS: AMPICILLIN-SULBACTAM INJ 3 GM in SODIUM CHLORIDE 0.9% INJ 100 ML IV SCH ×4 (03:18→21:05)
[2016-09-20] MEDS: INSULIN NovoLIN REGULAR SUPPLEMENTAL SCALE SQ SCH ×4 (05:55→21:07)
[2016-09-20] MEDS: HEPARIN SODIUM - SQ 10,000 UNITS/ML VIAL SQ SCH ×3 (05:55→22:17)
[2016-09-20 08:00] VITALS: BP 122/69; PULSE 84; RESP 16; TEMP 97.2; O2SAT 97
[2016-09-20] MEDS: COLLAGENASE OINT 30 GM TUBE TOP SCH (08:24)
[2016-09-20] MEDS: TAMSULOSIN HCL 0.4 MG CAP PO SCH (08:31)
[2016-09-20] MEDS: SODIUM CHLORIDE 0.9% FLUSH 5 ML FLUSH IV FLUSH SCH ×2 (08:31→21:06)
[2016-09-20] MEDS: MAGNESIUM OXIDE 400 MG TAB PO SCH ×2 (08:31→21:06)
[2016-09-20] MEDS: INSULIN DETEMIR 100 UNITS/ML VIAL SQ SCH ×2 (08:32→21:07)
[2016-09-20] MEDS: DOCUSATE SODIUM 50 MG/SENNA 8.6 MG TAB PO SCH ×2 (08:32→21:06)
[2016-09-20] MEDS: POLYETHYLENE GLYCOL 17 GM PKG PO SCH (08:36)
--- NOTE | 2016-09-20 11:14 | HHI.PR ---
Subjective Remarks The patient said that his pain was well controlled at this time. He wanted to know when he can remove the Galdamez catheter. He had no other acute complaints. He said he had a bowel movement this morning. Objective Vitals Vital Signs Date Time Temp Pulse Resp B/P Pulse Ox O2 Delivery O2 Flow Rate FiO2 09/20/16 10:00 16 09/20/16 08:00 97.2 84 16 122/69 97 09/20/16 00:14 97.7 78 17 136/77 94 09/19/16 20:15 96.7 79 18 116/70 96 09/19/16 16:00 96.4 73 18 113/71 96 09/19/16 12:00 96.9 77 20 121/63 98 I/O 09/19/16 09/19/16 09/19/16 09/20/16 09/20/16 09/20/16 07:00 15:00 23:00 07:00 15:00 23:00 Intake Total 570 ml 1200 ml 380 ml 680 ml Output Total 600 ml 550 ml 600 ml 600 ml Balance -30 ml 650 ml -220 ml 80 ml Intake Oral 360 ml 1200 ml 380 ml 480 ml IV Total 210 ml 0 ml 200 ml Output Urine Total 600 ml 550 ml 600 ml 600 ml # Bowel Movements 0 Result Diagram: 09/18/16 0328 09/18/16 0328 Imaging Last Impressions Abdomen/Pelvis CT 08/31/16 1308 Signed Impressions: Service Date/Time: Wednesday, August 31, 2016 13:36 - CONCLUSION: Significant air within the scrotum with soft tissue inflammation and skin thickening. Charlie's necrotizing fasciitis can have this appearance. I do not see any evidence of bowel or significant inguinal hernia. Triston Euceda MD Chest X-Ray 08/31/16 0000 Signed Impressions: Service Date/Time: Wednesday, August 31, 2016 18:32 - CONCLUSION: Left internal jugular central venous catheter in good position. No evidence of pneumothorax. Felix Caballero MD Objective Remarks GENERAL: No distress. SKIN: Brown, macular lesions on dorsum of right foot. HEENT: Normocephalic. Atraumatic. Pupils equal, reactive, round, conjugate. NECK:. Trachea is midline. There is no JVD. CHEST: Equal chest rise. Clear to auscultation. CARDIOVASCULAR: Regular rate and rhythm, no murmurs. ABDOMEN: Soft, nontender, nondistended. No guarding. : Bandage in place. Galdamez catheter in place. MUSCULOSKELETAL: No clubbing cyanosis or edema. NEUROLOGICAL: Alert and oriented x 3, No focal deficits. PSYCH: Mood and affect appropriate. Procedures Skin graft 09/16 Medications and IVs Current Medications Medications (Trade) Dose Ordered Sig/Matt Route Start Time Stop Time Status Last Admin (NS Flush) 2 ml UNSCH PRN IV FLUSH 08/31/16 14:30 09/11/16 15:19 (NS Flush) 2 ml BID IV FLUSH 08/31/16 21:00 09/20/16 08:31 (Zofran Inj) 4 mg Q6H PRN IV 08/31/16 18:00 09/19/16 11:03 (Saima-Colace) 2 tab BID PO 08/31/16 21:00 09/20/16 08:32 Miscellaneous Information 1 Q361D XX 08/31/16 14:30 (Flomax) 0.4 mg DAILY PO 09/01/16 09:00 09/20/16 08:31 (Narcan Inj) 0.4 mg UNSCH PRN IV 08/31/16 22:15 (Heparin Inj) 5,000 units Q8HR SQ 09/02/16 14:00 09/20/16 05:55 (Tylenol) 650 mg Q6H PO 09/02/16 09:00 09/20/16 08:32 (Dilaudid Pf Inj) 0.5 mg Q4H PRN IV PUSH 09/02/16 07:45 09/19/16 10:56 Oxycodone HCl 5 mg 5 mg Q4H PRN PO 09/02/16 07:45 09/15/16 01:42 (Unasyn Inj/NS Inj) 100 ml @ 200 mls/hr Q6H IV 09/06/16 08:00 09/20/16 08:31 (Mag-Ox) 400 mg Q12HR PO 09/06/16 09:15 09/20/16 08:31 (D50w (Vial) Inj) 25 ml UNSCH PRN IV PUSH 09/08/16 10:30 (Glucagon Inj) 1 mg UNSCH PRN OTHER 09/08/16 10:30 (Santyl Oint) 1 applic DAILY TOP 09/09/16 09:00 09/13/16 09:00 (Levemir Inj) 8 units BID SQ 09/09/16 21:00 09/20/16 08:32 Lorazepam 0.5 mg 0.5 mg Q6H PRN PO 09/15/16 09:45 (Mycamine Inj/NS Inj) 100 ml @ 100 mls/hr Q24H IV 09/15/16 18:45 09/19/16 18:44 (Roxicodone) 10 mg Q4H PRN PO 09/19/16 13:45 09/19/16 22:33 (Miralax) 17 gm DAILY PO 09/19/16 13:00 09/20/16 08:36 A/P Assessment and Plan 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 Initially on Zosyn and vancomycin. Status post I and D by Urology. ID and plastic surgery consults appreciated. S/p grafting by plastics . - continue Unasyn per ID. - wound management per plastic surgery. - pain meds with a bowel regimen. - Galdamez per urology. Macular lesions On right foot. Unsure of etiology. Not painful or itchy. May be s/t infection or thrombocytosis. Peripheral smear unremarkable. - continue to monitor. Stable. - antibiotics per ID. Thrombocytosis May be reactive. - follow CBC. Improved. Diabetes mellitus Hemoglobin A1C 8.8%. Well controlled 09/20. - continue sliding scale and Levemir. Anemia May be s/t bleeding from wound. Stable 09/18. - continue to monitor and transfuse as needed. DVT prophylaxis with Heparin. Discharge Planning Awaiting clinical improvement. Brad Soto DO Sep 20, 2016 11:14
[2016-09-20 12:00] VITALS: BP 122/67; PULSE 79; RESP 16; TEMP 96.3; O2SAT 96
--- NOTE | 2016-09-20 12:58 | HHI.IDPN ---
Note Infectious Disease Note ID coverage. Notes reviewed. was admitted with sepsis secondary to Charlie's gangrene. Patient feels okay. Had scrotal skin graft placed on 09/16. Noted to have a rash on the r. foot. No itching. No fever. Antibiotics Unasyn IV Micafungin IV Lines Line sites with no e.o infection Past Medical History reviewed Allergies: Coded Allergies: No Known Allergies (Unverified , 08/31/16) Objective Vital Signs Date Time Temp Pulse Resp B/P Pulse Ox O2 Delivery O2 Flow Rate FiO2 09/20/16 12:00 96.3 79 16 122/67 96 09/20/16 10:00 16 09/20/16 08:00 97.2 84 16 122/69 97 09/20/16 00:14 97.7 78 17 136/77 94 09/19/16 20:15 96.7 79 18 116/70 96 09/19/16 16:00 96.4 73 18 113/71 96 09/19/16 09/19/16 09/20/16 15:00 23:00 07:00 Intake Total 1200 ml 380 ml 680 ml Output Total 550 ml 600 ml 600 ml Balance 650 ml -220 ml 80 ml Intake Oral 1200 ml 380 ml 480 ml IV Total 0 ml 200 ml Output Urine Total 550 ml 600 ml 600 ml # Bowel Movements 0 Imaging Abdomen/Pelvis CT 08/31/16 1308 Signed Impressions: Service Date/Time: Wednesday, August 31, 2016 13:36 - CONCLUSION: Significant air within the scrotum with soft tissue inflammation and skin thickening. Charlie's necrotizing fasciitis can have this appearance. I do not see any evidence of bowel or significant inguinal hernia. Triston Euceda MD Chest X-Ray 08/31/16 0000 Signed Impressions: Service Date/Time: Wednesday, August 31, 2016 18:32 - CONCLUSION: Left internal jugular central venous catheter in good position. No evidence of pneumothorax. Felix Caballero MD GENERAL: Patient is in no acute distress. HEENT: No icterus. EOMI. NECK: Supple. LUNGS: Clear breath sounds. CARDIAC: Regular rate and rhythm. Nl S1S2. ABDOMEN: Soft, non tender. Scrotum incision clean. Has a. tiny area with gauze packing and yellowish drainage on the dressing. EXTREMITIES: No CCE. SKIN: Black punctate. <1mm specks on the dorsum of the R. foot and ankle. Non blanching. Excoriated and dry. No other areas involved. Assessment & Plan Remarks Sepsis present on admission controlled now. Source likely Charlie's gangrene Now with yeast infection ? secondary over growth while on antibiotics. New onset diabetes mellitus Lesions on R. foot non specific. ? etiology. Does no look significant. Observe. Recommendations Continue Unasyn IV plan on 4 weeks IV followed by 2 wks oral depending on clinical response. Continue Micafungin IV (C.glabrata in wound) Follow clinically. Sergey Huddleston MD Sep 20, 2016 12:58
[2016-09-20 16:00] VITALS: BP 138/71; PULSE 80; RESP 17; TEMP 97.4; O2SAT 97
--- NOTE | 2016-09-20 17:22 | PD.PLAS.PN ---
Subjective Remarks Patient seen yesterday afternoon. Doing very well. Dressing - Cotton layer padding removed - sutures removed. Replaced with dry ABD pads. OK to change the pads prn. The Xeroform is also sutured in all around the edges - will remove it in 3-4 days more. Graft seems to be adhering well and there is no smell or drainage. Vital Signs Date Time Temp Pulse Resp B/P Pulse Ox O2 Delivery O2 Flow Rate FiO2 09/20/16 16:06 16 09/20/16 16:00 97.4 80 17 138/71 97 09/20/16 13:00 16 09/20/16 12:00 96.3 79 16 122/67 96 09/20/16 08:00 97.2 84 16 122/69 97 09/20/16 00:14 97.7 78 17 136/77 94 09/19/16 20:15 96.7 79 18 116/70 96 I/O 09/19/16 09/19/16 09/19/16 09/20/16 09/20/16 09/20/16 07:00 15:00 23:00 07:00 15:00 23:00 Intake Total 570 ml 1200 ml 380 ml 680 ml 360 ml Output Total 600 ml 550 ml 600 ml 600 ml 700 ml Balance -30 ml 650 ml -220 ml 80 ml -340 ml Intake Oral 360 ml 1200 ml 380 ml 480 ml 240 ml IV Total 210 ml 0 ml 200 ml 120 ml Output Urine Total 600 ml 550 ml 600 ml 600 ml 700 ml # Bowel Movements 0 2 Result Diagram: 09/18/16 0328 09/18/16 0328 Jeet Lainez MD Sep 20, 2016 17:22
[2016-09-20] MEDS: MICAFUNGIN INJ 100 MG in SODIUM CHLORIDE 0.9% INJ 100 ML IV SCH (18:31)
[2016-09-20 20:00] VITALS: BP 114/71; PULSE 74; RESP 17; TEMP 97; O2SAT 96
[2016-09-21] VITALS: BP 135/80; PULSE 76; RESP 17; TEMP 96.9; O2SAT 97
[2016-09-21] MEDS: AMPICILLIN-SULBACTAM INJ 3 GM in SODIUM CHLORIDE 0.9% INJ 100 ML IV SCH ×4 (01:25→22:25)
[2016-09-21] MEDS: ACETAMINOPHEN 325 MG TAB PO SCH ×4 (01:25→22:26)
[2016-09-21] MEDS: HEPARIN SODIUM - SQ 10,000 UNITS/ML VIAL SQ SCH ×3 (05:22→22:27)
[2016-09-21] MEDS: INSULIN NovoLIN REGULAR SUPPLEMENTAL SCALE SQ SCH ×4 (06:12→22:26)
[2016-09-21 08:00] VITALS: BP 132/82; PULSE 73; RESP 18; TEMP 96.9; O2SAT 98
[2016-09-21] MEDS: TAMSULOSIN HCL 0.4 MG CAP PO SCH (08:23)
[2016-09-21] MEDS: INSULIN DETEMIR 100 UNITS/ML VIAL SQ SCH ×2 (08:23→22:26)
[2016-09-21] MEDS: SODIUM CHLORIDE 0.9% FLUSH 5 ML FLUSH IV FLUSH SCH ×2 (08:23→22:25)
[2016-09-21] MEDS: DOCUSATE SODIUM 50 MG/SENNA 8.6 MG TAB PO SCH ×2 (08:23→22:26)
[2016-09-21] MEDS: MAGNESIUM OXIDE 400 MG TAB PO SCH ×2 (08:24→22:25)
[2016-09-21] MEDS: POLYETHYLENE GLYCOL 17 GM PKG PO SCH (08:24)
[2016-09-21] MEDS: COLLAGENASE OINT 30 GM TUBE TOP SCH (08:34)
[2016-09-21 12:00] VITALS: BP 131/87; PULSE 82; RESP 18; TEMP 95.5; O2SAT 96
--- NOTE | 2016-09-21 14:56 | HHI.PR ---
Subjective Remarks Patient states pain in scrotum and left lateral thigh is controlled and only hurts when he is moving. He has no other acute concerns and is anxious to go home. Objective Vitals Vital Signs Date Time Temp Pulse Resp B/P Pulse Ox O2 Delivery O2 Flow Rate FiO2 09/21/16 12:00 95.5 82 18 131/87 96 09/21/16 08:00 96.9 73 18 132/82 98 09/21/16 00:00 96.9 76 17 135/80 97 09/20/16 20:00 97.0 74 17 114/71 96 09/20/16 16:06 16 09/20/16 16:00 97.4 80 17 138/71 97 I/O 09/20/16 09/20/16 09/20/16 09/21/16 09/21/16 09/21/16 07:00 15:00 23:00 07:00 15:00 23:00 Intake Total 680 ml 360 ml 580 ml 340 ml Output Total 600 ml 700 ml 450 ml 450 ml Balance 80 ml -340 ml 130 ml -110 ml Intake Oral 480 ml 240 ml 480 ml 240 ml IV Total 200 ml 120 ml 100 ml 100 ml Output Urine Total 600 ml 700 ml 450 ml 450 ml # Bowel Movements 2 1 Result Diagram: 09/18/168 09/18/16327 Objective Remarks GENERAL: Well-nourished, well-developed pleasant middle-aged male patient. SKIN: Warm and dry. Dressing on scrotum and left lateral thigh not removed. HEAD: Normocephalic. EYES: No scleral icterus. No injection or drainage. NECK: Supple, trachea midline. No JVD or lymphadenopathy. CARDIOVASCULAR: Regular rate and rhythm without murmurs, gallops, or rubs. RESPIRATORY: Breath sounds equal bilaterally. No accessory muscle use. GASTROINTESTINAL: Abdomen soft, non-tender, nondistended. EXTREMITIES: No cyanosis, or edema. NEUROLOGICAL: Awake, alert, and oriented x 3. Non-focal. Normal gait. Procedures Skin graft 09/16 A/P Assessment and Plan 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 Status post I and D by Urology Dr. French on 09/01, s/p graft placement per plastics Dr. Lainez on 09/16. - continue Unasyn per ID/Dr. Huddleston - 4 weeks IV followed by 2 weeks oral depending on clinical response. Cont micafungin IV (Suman mezabratra in wound). - wound management per plastic surgery. - pain meds with a bowel regimen. - Galdamez per urology. Macular lesions On right foot. Unsure of etiology. Not painful or itchy. May be s/t infection or thrombocytosis. Peripheral smear unremarkable. - continue to monitor. Stable. Thrombocytosis May be reactive. - follow CBC. Improved. Diabetes mellitus (new diagonsis for patient) Hemoglobin A1C 8.8%. Well controlled 09/20. - continue sliding scale and Levemir. Anemia May be s/t bleeding from wound. Stable 09/18. - continue to monitor and transfuse as needed. DVT prophylaxis with Heparin. Mesha Ryan MD Sep 21, 2016 14:56
[2016-09-21 16:00] VITALS: BP 149/85; PULSE 73; RESP 18; TEMP 96.2; O2SAT 96
[2016-09-21] MEDS: MICAFUNGIN INJ 100 MG in SODIUM CHLORIDE 0.9% INJ 100 ML IV SCH (16:31)
[2016-09-21] MEDS: HYDROmorphone HCL PF 1 MG/ML VIAL IV PUSH PRN (16:32)
[2016-09-21 20:00] VITALS: BP 131/78; PULSE 77; RESP 17; TEMP 97.5; O2SAT 96
[2016-09-22] VITALS: BP 141/85; PULSE 95; RESP 17; TEMP 97.5; O2SAT 97
[2016-09-22] MEDS: AMPICILLIN-SULBACTAM INJ 3 GM in SODIUM CHLORIDE 0.9% INJ 100 ML IV SCH ×4 (02:00→22:10)
[2016-09-22] MEDS: ACETAMINOPHEN 325 MG TAB PO SCH ×4 (02:05→22:08)
[2016-09-22] MEDS: HEPARIN SODIUM - SQ 10,000 UNITS/ML VIAL SQ SCH ×3 (05:22→22:08)
[2016-09-22] MEDS: INSULIN NovoLIN REGULAR SUPPLEMENTAL SCALE SQ SCH ×4 (06:35→21:00)
[2016-09-22 07:21] VITALS: BP 140/70; PULSE 76; RESP 17; TEMP 96; O2SAT 98
--- NOTE | 2016-09-22 07:28 | MP ---
cc: GOSIA LAINEZ M.D. DATE OF SURGERY: 09/16/2016 PREOPERATIVE DIAGNOSIS Large open wound scrotum and perineum, 12 x 14 cm with good granulation. POSTOPERATIVE DIAGNOSIS Large open wound scrotum and perineum, 12 x 14 cm with good granulation. OPERATION Debridement and split-thickness skin graft of scrotum and perineum wound, 15 x [address] Lainez ANESTHESIA General. INDICATIONS This is a 51-year-old white male with recently treated Charlie's gangrene, approximately 10-15 days in the hospital, now on IV antibiotics, has done well with the previous surgery and IV antibiotics. He has been washing the open wound with soap and water twice a day for the last three or four days and has done an excellent job of cleaning all the fibrin layers. The wound is granulating well and there is no necrotic tissue or any purulent discharge remaining. The patient is being taken for split-thickness skin grafting. He understands the overall surgical technique, the donor site, possibility of graft failure and possibility of further surgeries, and general complications such as bleeding, infection, failure of graft and reoperation, open wound care etc. He is willing to go ahead with the surgery. PROCEDURE The patient was brought to the operating room, was given anesthesia in a supine position. He was then turned prone on the operating table to access most of the wound. The donor site selected was the patient's left thigh and the area was shaved, prep and drape was done. Timeout had been called and completed. He was already on scheduled IV antibiotics. First a Betadine scrub brush was used for approximately 6-7 minutes of continuous scrubbing with the brush and Betadine soap solution and the area then copiously irrigated clean. The wound bed appeared excellent. A split-thickness skin graft was harvested from the patient's left thigh posterolateral aspect. It was meshed to 1.5 ratio. Two strips were taken and applied to the scrotum just below the perineal part of the wound. The perineal part of the wound was actually suture closed with deep inverting Monocryl sutures, partly allowing the graft to be tucked in to the resulting the defect to make it stable. The rest of the graft was sutured with a running 4-0 chromic suture along the border of the scrotal wound and the two strips of the graft were also sutured in the midline with running 4-0 chromic suture. Xeroform was applied to the entire graft area and then using Monocryl suture it was folded and sutured in place towards the anal side to seal the area off as much as possible and then the same suture was continued in a full osage again to completely secure the Xeroform to the graft. The final dressing was with wet layered Sof-Rol cotton dressing and this dressing was fixed to the sides of the scrotum and part of the perineum with interrupted Prolene suture and also anteriorly it was fixed with a couple of sutures to maintain the position of the dressing. The donor site was injected with a local anesthetic mixture for postoperative pain control and it was cleaned and dressed with Xeroform and sterile dressing as well. The patient remained stable through the procedure. Intraoperative blood loss 20-30 cc. No complications. signed, not fully reviewed MD MARANDA Khan/SILVERIO /8:24 PM /7:01 AM ASMITA
[2016-09-22] MEDS: POLYETHYLENE GLYCOL 17 GM PKG PO SCH (08:47)
[2016-09-22] MEDS: COLLAGENASE OINT 30 GM TUBE TOP SCH (08:48)
[2016-09-22] MEDS: TAMSULOSIN HCL 0.4 MG CAP PO SCH (09:53)
[2016-09-22] MEDS: MAGNESIUM OXIDE 400 MG TAB PO SCH ×2 (09:53→22:07)
[2016-09-22] MEDS: DOCUSATE SODIUM 50 MG/SENNA 8.6 MG TAB PO SCH ×2 (09:53→22:07)
[2016-09-22] MEDS: INSULIN DETEMIR 100 UNITS/ML VIAL SQ SCH ×2 (09:55→22:08)
[2016-09-22] MEDS: SODIUM CHLORIDE 0.9% FLUSH 5 ML FLUSH IV FLUSH SCH ×2 (09:56→22:08)
[2016-09-22 12:20] VITALS: BP 136/79; PULSE 74; RESP 16; TEMP 96.3; O2SAT 98
[2016-09-22 16:00] VITALS: BP 143/79; PULSE 82; RESP 18; TEMP 96.9; O2SAT 98
--- NOTE | 2016-09-22 16:49 | HHI.PR ---
Subjective Remarks Patient denies pain. States he is tired of being in the hospital. Objective Vitals Vital Signs Date Time Temp Pulse Resp B/P Pulse Ox O2 Delivery O2 Flow Rate FiO2 09/22/16 12:20 96.3 74 16 136/79 98 09/22/16 07:21 96.0 76 17 140/70 98 09/22/16 00:00 97.5 95 17 141/85 97 09/21/16 20:00 97.5 77 17 131/78 96 I/O 09/21/16 09/21/16 09/21/16 09/22/16 09/22/16 09/22/16 07:00 15:00 23:00 07:00 15:00 23:00 Intake Total 340 ml 198 ml 580 ml 340 ml 580 ml Output Total 450 ml 1300 ml 600 ml 500 ml Balance -110 ml 198 ml -720 ml -260 ml 80 ml Intake Oral 240 ml 480 ml 240 ml 480 ml IV Total 100 ml 198 ml 100 ml 100 ml 100 ml Output Urine Total 450 ml 1300 ml 600 ml 500 ml # Bowel Movements 1 0 Result Diagram: 09/18/16 0328 09/18/16 0328 Objective Remarks GENERAL: Well-nourished, well-developed pleasant middle-aged male patient. SKIN: Warm and dry. Dressing on scrotum and left lateral thigh not removed. HEAD: Normocephalic. EYES: No scleral icterus. No injection or drainage. NECK: Supple, trachea midline. No JVD or lymphadenopathy. CARDIOVASCULAR: Regular rate and rhythm without murmurs, gallops, or rubs. RESPIRATORY: Breath sounds equal bilaterally. No accessory muscle use. GASTROINTESTINAL: Abdomen soft, non-tender, nondistended. EXTREMITIES: No cyanosis, or edema. NEUROLOGICAL: Awake, alert, and oriented x 3. Non-focal. Normal gait. Procedures Skin graft 09/16 A/P Assessment and Plan 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 Status post I and D by Urology Dr. French on 08/31, s/p graft placement per plastics Dr. Lainez on 09/16. - continue Unasyn per ID/Dr. Huddleston - 4 weeks IV from initial surgery (stop date 09/28) possibly followed by 2 weeks oral abx depending on clinical response. I d/w Dr. Huddleston today. Cont micafungin IV (C glbratra in wound). - wound management per plastic surgery. - pain meds with a bowel regimen. - Galdamez management as per urology. Macular lesions On right foot. Unsure of etiology. Not painful or itchy. May be s/t infection or thrombocytosis. Peripheral smear unremarkable. - continue to monitor. Stable. Thrombocytosis May be reactive. - follow CBC. Improved. Diabetes mellitus (new diagonsis for patient) Hemoglobin A1C 8.8%. Well controlled 09/20. - continue sliding scale and Levemir. Anemia May be s/t bleeding from wound. Stable 09/18. - continue to monitor and transfuse as needed. DVT prophylaxis with Heparin. Mesha Ryan MD Sep 22, 2016 16:48
[2016-09-22] MEDS: MICAFUNGIN INJ 100 MG in SODIUM CHLORIDE 0.9% INJ 100 ML IV SCH (18:10)
[2016-09-22 20:00] VITALS: BP 137/82; PULSE 81; RESP 18; TEMP 98.4; O2SAT 98
[2016-09-23] VITALS: BP 149/74; PULSE 74; RESP 18; TEMP 97.4; O2SAT 99
[2016-09-23] MEDS: ACETAMINOPHEN 325 MG TAB PO SCH ×3 (02:14→20:57)
[2016-09-23] MEDS: AMPICILLIN-SULBACTAM INJ 3 GM in SODIUM CHLORIDE 0.9% INJ 100 ML IV SCH ×4 (02:14→20:57)
[2016-09-23] MEDS: INSULIN NovoLIN REGULAR SUPPLEMENTAL SCALE SQ SCH ×4 (05:56→20:58)
[2016-09-23] MEDS: HEPARIN SODIUM - SQ 10,000 UNITS/ML VIAL SQ SCH ×3 (05:57→20:58)
[2016-09-23 08:00] VITALS: BP 139/86; PULSE 78; RESP 18; TEMP 96.9; O2SAT 99
[2016-09-23] MEDS: COLLAGENASE OINT 30 GM TUBE TOP SCH (09:00)
[2016-09-23] MEDS: POLYETHYLENE GLYCOL 17 GM PKG PO SCH (09:00)
[2016-09-23] MEDS: MAGNESIUM OXIDE 400 MG TAB PO SCH ×2 (09:30→20:58)
[2016-09-23] MEDS: TAMSULOSIN HCL 0.4 MG CAP PO SCH (09:30)
[2016-09-23] MEDS: DOCUSATE SODIUM 50 MG/SENNA 8.6 MG TAB PO SCH ×2 (09:31→20:58)
[2016-09-23] MEDS: SODIUM CHLORIDE 0.9% FLUSH 5 ML FLUSH IV FLUSH SCH ×2 (09:31→20:57)
[2016-09-23] MEDS: INSULIN DETEMIR 100 UNITS/ML VIAL SQ SCH ×2 (09:32→20:58)
[2016-09-23 12:00] VITALS: BP 136/78; PULSE 75; RESP 18; TEMP 97.2; O2SAT 99
[2016-09-23 16:00] VITALS: BP 135/78; PULSE 76; RESP 18; TEMP 97.2; O2SAT 99
[2016-09-23] MEDS: MICAFUNGIN INJ 100 MG in SODIUM CHLORIDE 0.9% INJ 100 ML IV SCH (18:23)
[2016-09-23 20:00] VITALS: BP 161/64; PULSE 85; RESP 20; TEMP 98; O2SAT 96
--- NOTE | 2016-09-23 23:30 | HHI.PR ---
Subjective Remarks Late entry - pt seen at 7:30 p.m. Pain controlled. Galdamez causing irritation and he wants it out. Objective Vitals Vital Signs Date Time Temp Pulse Resp B/P Pulse Ox O2 Delivery O2 Flow Rate FiO2 09/23/16 20:00 98.0 85 20 161/64 96 09/23/16 16:00 97.2 76 18 135/78 99 09/23/16 12:00 97.2 75 18 136/78 99 09/23/16 08:00 96.9 78 18 139/86 99 09/23/16 00:00 97.4 74 18 149/74 99 I/O 09/22/16 09/22/16 09/22/16 09/23/16 09/23/16 09/23/16 07:00 15:00 23:00 07:00 15:00 23:00 Intake Total 340 ml 580 ml 320 ml 455 ml 480 ml 720 ml Output Total 600 ml 500 ml 450 ml 550 ml 500 ml 450 ml Balance -260 ml 80 ml -130 ml -95 ml -20 ml 270 ml Intake Oral 240 ml 480 ml 320 ml 240 ml 480 ml 720 ml IV Total 100 ml 100 ml 0 ml 215 ml Output Urine Total 600 ml 500 ml 450 ml 550 ml 500 ml 450 ml # Bowel Movements 0 0 0 0 0 Objective Remarks GENERAL: Well-nourished, well-developed pleasant middle-aged male patient. SKIN: Warm and dry. Dressing on scrotum and left lateral thigh not removed. HEAD: Normocephalic. EYES: No scleral icterus. No injection or drainage. NECK: Supple, trachea midline. No JVD or lymphadenopathy. CARDIOVASCULAR: Regular rate and rhythm without murmurs, gallops, or rubs. RESPIRATORY: Breath sounds equal bilaterally. No accessory muscle use. GASTROINTESTINAL: Abdomen soft, non-tender, nondistended. EXTREMITIES: No cyanosis, or edema. NEUROLOGICAL: Awake, alert, and oriented x 3. Non-focal. Normal gait. Procedures Skin graft 09/16 A/P Assessment and Plan 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 Status post I and D by Urology Dr. French on 08/31, s/p graft placement per plastics Dr. Lainez on 09/16. - continue Unasyn per ID - 4 weeks IV from initial surgery (stop date 09/28) possibly followed by 2 weeks oral abx depending on clinical response. Cont micafungin IV (C glbratra in wound). - wound management per plastic surgery. - pain meds with a bowel regimen. - Galdamez management as per urology. Macular lesions On right foot. Unsure of etiology. Not painful or itchy. May be s/t infection or thrombocytosis. Peripheral smear unremarkable. - continue to monitor. Stable. Thrombocytosis May be reactive. - follow CBC. Improved. Diabetes mellitus (new diagonsis for patient) Hemoglobin A1C 8.8%. Well controlled 09/20. - continue sliding scale and Levemir. Anemia May be s/t bleeding from wound. Stable 09/18. - continue to monitor and transfuse as needed. DVT prophylaxis with Heparin. Discharge Planning Likely DC after completion of IV antibiotics, difficult discharge prior to this due to insurance limitations on [facility] coverage. Mesha Ryan MD Sep 23, 2016 23:30
[2016-09-24] VITALS: BP 146/80; PULSE 71; RESP 18; TEMP 97.4; O2SAT 100
[2016-09-24] MEDS: AMPICILLIN-SULBACTAM INJ 3 GM in SODIUM CHLORIDE 0.9% INJ 100 ML IV SCH ×4 (02:07→20:29)
[2016-09-24] MEDS: ACETAMINOPHEN 325 MG TAB PO SCH ×4 (02:07→20:30)
[2016-09-24] MEDS: HEPARIN SODIUM - SQ 10,000 UNITS/ML VIAL SQ SCH ×3 (04:19→20:29)
[2016-09-24] MEDS: INSULIN NovoLIN REGULAR SUPPLEMENTAL SCALE SQ SCH ×4 (04:24→20:30)
[2016-09-24 08:00] VITALS: BP 141/87; PULSE 72; RESP 18; TEMP 97.1; O2SAT 98
[2016-09-24] MEDS: COLLAGENASE OINT 30 GM TUBE TOP SCH (09:00)
[2016-09-24] MEDS: SODIUM CHLORIDE 0.9% FLUSH 5 ML FLUSH IV FLUSH SCH ×2 (09:00→20:30)
[2016-09-24] MEDS: POLYETHYLENE GLYCOL 17 GM PKG PO SCH (09:00)
[2016-09-24] MEDS: TAMSULOSIN HCL 0.4 MG CAP PO SCH (09:33)
[2016-09-24] MEDS: MAGNESIUM OXIDE 400 MG TAB PO SCH ×2 (09:33→20:30)
[2016-09-24] MEDS: INSULIN DETEMIR 100 UNITS/ML VIAL SQ SCH ×2 (09:34→20:30)
[2016-09-24] MEDS: DOCUSATE SODIUM 50 MG/SENNA 8.6 MG TAB PO SCH ×2 (09:34→20:30)
--- NOTE | 2016-09-24 11:22 | HHI.PR ---
Subjective Remarks Patient denies pain. Objective Vitals Vital Signs Date Time Temp Pulse Resp B/P Pulse Ox O2 Delivery O2 Flow Rate FiO2 09/24/16 08:00 97.1 72 18 141/87 98 09/24/16 00:00 97.4 71 18 146/80 100 09/23/16 20:00 98.0 85 20 161/64 96 09/23/16 16:00 97.2 76 18 135/78 99 09/23/16 12:00 97.2 75 18 136/78 99 I/O 09/23/16 09/23/16 09/23/16 09/24/16 09/24/16 09/24/16 07:00 15:00 23:00 07:00 15:00 23:00 Intake Total 455 ml 480 ml 720 ml 240 ml Output Total 550 ml 500 ml 450 ml 700 ml Balance -95 ml -20 ml 270 ml -460 ml Intake Oral 240 ml 480 ml 720 ml 240 ml IV Total 215 ml Output Urine Total 550 ml 500 ml 450 ml 700 ml # Bowel Movements 0 0 0 0 Objective Remarks GENERAL: Well-nourished, well-developed pleasant middle-aged male patient. SKIN: Warm and dry. Dressing on scrotum and left lateral thigh not removed. HEAD: Normocephalic. EYES: No scleral icterus. No injection or drainage. NECK: Supple, trachea midline. No JVD or lymphadenopathy. CARDIOVASCULAR: Regular rate and rhythm without murmurs, gallops, or rubs. RESPIRATORY: Breath sounds equal bilaterally. No accessory muscle use. GASTROINTESTINAL: Abdomen soft, non-tender, nondistended. EXTREMITIES: No cyanosis, or edema. NEUROLOGICAL: Awake, alert, and oriented x 3. Non-focal. Normal gait. Procedures Skin graft 09/16 A/P Assessment and Plan 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 Status post I and D by Urology Dr. French on 08/31, s/p graft placement per plastics Dr. Lainez on 09/16. - continue Unasyn per ID - 4 weeks IV from initial surgery (stop date 09/28) possibly followed by 2 weeks oral abx depending on clinical response. Cont micafungin IV (C glbratra in wound). - wound management per plastic surgery. - pain meds with a bowel regimen. - Galdamez management as per urology. Macular lesions On right foot. Unsure of etiology. Not painful or itchy. May be s/t infection or thrombocytosis. Peripheral smear unremarkable. - continue to monitor. Stable. Thrombocytosis May be reactive. - follow CBC. Improved. Diabetes mellitus (new diagonsis for patient) Hemoglobin A1C 8.8%. Well controlled 09/20. - continue sliding scale and Levemir. Anemia May be s/t bleeding from wound. Stable 09/18. - continue to monitor and transfuse as needed. DVT prophylaxis with Heparin. Discharge Planning Likely DC after completion of IV antibiotics Mesha Ryan MD Sep 24, 2016 11:22
--- NOTE | 2016-09-24 11:23 | HHI.FF ---
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 My clinical findings support the need for the requested home health care services because: Need for psychosocial assistance I certify that my clinical findings support that this patient is homebound because: Need for psychosocial assistance Mesha Ryan MD Sep 24, 2016 11:23
[2016-09-24 12:00] VITALS: BP 136/87; PULSE 84; RESP 20; TEMP 97.8; O2SAT 100
[2016-09-24 16:00] VITALS: BP 141/83; PULSE 74; RESP 18; TEMP 97; O2SAT 99
[2016-09-24] MEDS: MICAFUNGIN INJ 100 MG in SODIUM CHLORIDE 0.9% INJ 100 ML IV SCH (17:17)
[2016-09-24] MEDS: HYDROmorphone HCL PF 1 MG/ML VIAL IV PUSH PRN (17:48)
--- NOTE | 2016-09-24 18:00 | PD.PLAS.PN ---
Subjective Remarks Dressing - xeroform removed. Graft take 100%. To protect the graft with Xeroform and padded dressing for approx 7-10 more days. Then ok to leave open. OK to shower - avoid rubbing the graft site. No swimming or [place] water 6-8 weeks and after that short periods in water to avoid damaging the thin skin - it will be numb to touch for long time and the feeling may not recover as good as before. OK to discharge from my stand point. FU in 4 to 6 weeks in my office. Vital Signs Date Time Temp Pulse Resp B/P Pulse Ox O2 Delivery O2 Flow Rate FiO2 09/24/16 16:00 97.0 74 18 141/83 99 09/24/16 12:00 97.8 84 20 136/87 100 09/24/16 08:00 97.1 72 18 141/87 98 09/24/16 00:00 97.4 71 18 146/80 100 09/23/16 20:00 98.0 85 20 161/64 96 I/O 09/23/16 09/23/16 09/23/16 09/24/16 09/24/16 09/24/16 07:00 15:00 23:00 07:00 15:00 23:00 Intake Total 455 ml 480 ml 720 ml 240 ml 800 ml Output Total 550 ml 500 ml 450 ml 700 ml 450 ml Balance -95 ml -20 ml 270 ml -460 ml 350 ml Intake Oral 240 ml 480 ml 720 ml 240 ml 800 ml IV Total 215 ml Output Urine Total 550 ml 500 ml 450 ml 700 ml 450 ml # Bowel Movements 0 0 0 0 1 Jeet Lainez MD Sep 24, 2016 18:00
[2016-09-24 20:00] VITALS: BP 149/80; PULSE 73; RESP 21; TEMP 96.1; O2SAT 99
[2016-09-24] MEDS: ONDANSETRON HCL 4 MG/2 ML VIAL IV PRN (20:29)
[2016-09-25 00:04] VITALS: BP 141/88; PULSE 81; RESP 20; TEMP 97.3; O2SAT 99
[2016-09-25] MEDS: AMPICILLIN-SULBACTAM INJ 3 GM in SODIUM CHLORIDE 0.9% INJ 100 ML IV SCH ×4 (02:28→20:18)
[2016-09-25] MEDS: ACETAMINOPHEN 325 MG TAB PO SCH ×4 (02:28→20:20)
[2016-09-25] MEDS: HEPARIN SODIUM - SQ 10,000 UNITS/ML VIAL SQ SCH ×3 (04:25→20:21)
[2016-09-25] MEDS: INSULIN NovoLIN REGULAR SUPPLEMENTAL SCALE SQ SCH ×4 (05:49→20:21)
[2016-09-25 08:00] VITALS: BP 138/82; PULSE 76; RESP 18; TEMP 97.6; O2SAT 99
[2016-09-25] MEDS: DOCUSATE SODIUM 50 MG/SENNA 8.6 MG TAB PO SCH ×2 (08:07→20:20)
[2016-09-25] MEDS: MAGNESIUM OXIDE 400 MG TAB PO SCH ×2 (08:08→20:20)
[2016-09-25] MEDS: SODIUM CHLORIDE 0.9% FLUSH 5 ML FLUSH IV FLUSH SCH ×2 (08:08→20:17)
[2016-09-25] MEDS: TAMSULOSIN HCL 0.4 MG CAP PO SCH (08:08)
[2016-09-25] MEDS: COLLAGENASE OINT 30 GM TUBE TOP SCH (08:09)
[2016-09-25] MEDS: INSULIN DETEMIR 100 UNITS/ML VIAL SQ SCH ×2 (08:09→20:21)
[2016-09-25] MEDS: POLYETHYLENE GLYCOL 17 GM PKG PO SCH (08:22)
[2016-09-25 12:00] VITALS: BP 136/78; PULSE 82; RESP 20; TEMP 96.1; O2SAT 98
[2016-09-25 16:00] VITALS: BP 128/74; PULSE 78; RESP 18; TEMP 97.4; O2SAT 98
[2016-09-25] MEDS: MICAFUNGIN INJ 100 MG in SODIUM CHLORIDE 0.9% INJ 100 ML IV SCH (17:26)
--- NOTE | 2016-09-25 19:47 | HHI.PR ---
Subjective Remarks Doing well, no pain. Objective Vitals Vital Signs Date Time Temp Pulse Resp B/P Pulse Ox O2 Delivery O2 Flow Rate FiO2 09/25/16 16:00 97.4 78 18 128/74 98 09/25/16 15:11 18 09/25/16 12:00 96.1 82 20 136/78 98 09/25/16 08:00 97.6 76 18 138/82 99 09/25/16 00:04 97.3 81 20 141/88 99 09/24/16 20:00 96.1 73 21 149/80 99 I/O 09/24/16 09/24/16 09/24/16 09/25/16 09/25/16 09/25/16 07:00 15:00 23:00 07:00 15:00 23:00 Intake Total 240 ml 800 ml 240 ml 120 ml 700 ml Output Total 700 ml 450 ml 300 ml 450 ml Balance -460 ml 350 ml 240 ml -180 ml 250 ml Intake Oral 240 ml 800 ml 240 ml 120 ml 600 ml IV Total 100 ml Output Urine Total 700 ml 450 ml 300 ml 450 ml # Voids 1 # Bowel Movements 0 1 0 0 0 Objective Remarks GENERAL: Well-nourished, well-developed pleasant middle-aged male patient. SKIN: Warm and dry. Dressing on scrotum and left lateral thigh not removed. HEAD: Normocephalic. EYES: No scleral icterus. No injection or drainage. NECK: Supple, trachea midline. No JVD or lymphadenopathy. CARDIOVASCULAR: Regular rate and rhythm without murmurs, gallops, or rubs. RESPIRATORY: Breath sounds equal bilaterally. No accessory muscle use. GASTROINTESTINAL: Abdomen soft, non-tender, nondistended. EXTREMITIES: No cyanosis, or edema. NEUROLOGICAL: Awake, alert, and oriented x 3. Non-focal. Normal gait. Procedures Skin graft 09/16 A/P Assessment and Plan 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 Status post I and D by Urology Dr. French on 08/31, s/p graft placement per plastics Dr. Lainez on 09/16. - continue Unasyn per ID - 4 weeks IV from initial surgery (stop date 09/28) possibly followed by 2 weeks oral abx depending on clinical response. Cont micafungin IV (C glbramed in wound). - per Dr. Lainez graft take 100%, protect the graft with Xeroform and padded dressing for approx 7-10 more days, then leave open, OK to shower but no swimming/bathing 6-8 weeks, OK by him to DC home with outpatient f/u - pain meds with a bowel regimen. - likely DC blankenship tomorrow Macular lesions On right foot. Unsure of etiology. Not painful or itchy. May be s/t infection or thrombocytosis. Peripheral smear unremarkable. - continue to monitor. Stable. Thrombocytosis May be reactive. - follow CBC. Improved. Diabetes mellitus (new diagonsis for patient) Hemoglobin A1C 8.8%. Well controlled 09/20. - continue sliding scale and Levemir. -S/p adaptive physical educator consult Anemia May be s/t bleeding from wound. Stable 09/18. - continue to monitor and transfuse as needed. DVT prophylaxis with Heparin. Discharge Planning Likely DC after completion of IV antibiotics Mesha Ryan MD Sep 25, 2016 19:47
[2016-09-25 20:00] VITALS: BP 137/79; PULSE 75; RESP 20; TEMP 97.4; O2SAT 99
[2016-09-26] VITALS: BP 145/84; PULSE 72; RESP 20; TEMP 97.6; O2SAT 100
[2016-09-26] MEDS: ACETAMINOPHEN 325 MG TAB PO SCH ×4 (00:33→20:06)
[2016-09-26] MEDS: AMPICILLIN-SULBACTAM INJ 3 GM in SODIUM CHLORIDE 0.9% INJ 100 ML IV SCH ×4 (00:33→20:06)
[2016-09-26 04:48] LABS: BICARBONATE 25.9 MEQ/L (21.0-32.0); POTASSIUM 3.8 MEQ/L (3.5-5.1)
[2016-09-26 04:52] LABS: AUTOMATED NEUTROPHIL # 3.8 TH/MM3 (1.8-7.7); BASOPHIL # 0.1 TH/MM3 (0-0.2); BASOPHIL % 1.2 % (0.0-2.0); EOSINOPHIL # 0.3 TH/MM3 (0-0.4); EOSINOPHIL % 3.6 % (0.0-4.0); HEMATOCRIT 33.7 % (39.0-51.0); HEMO FLAGS DIFF FINAL; LYMPH % 35.1 % (9.0-44.0); LYMPHOCYTE # 2.4 TH/MM3 (1.0-4.8); MEAN CELL VOLUME 92.4 FL (80.0-100.0); MEAN CORPUSCULAR HEMOGLOBIN 31.4 PG (27.0-34.0); NEUT % 54.1 % (16.0-70.0); PLATELET COUNT 276 TH/MM3 (150-450); RED BLOOD COUNT 3.64 MIL/MM3 (4.50-5.90); WHITE BLOOD COUNT 6.9 TH/MM3 (4.0-11.0)
[2016-09-26] MEDS: HEPARIN SODIUM - SQ 10,000 UNITS/ML VIAL SQ SCH ×3 (06:02→20:05)
[2016-09-26] MEDS: INSULIN NovoLIN REGULAR SUPPLEMENTAL SCALE SQ SCH ×4 (06:02→20:11)
[2016-09-26] MEDS: SODIUM CHLORIDE 0.9% FLUSH 5 ML FLUSH IV FLUSH SCH ×2 (07:53→20:06)
[2016-09-26] MEDS: INSULIN DETEMIR 100 UNITS/ML VIAL SQ SCH ×2 (07:53→20:11)
[2016-09-26] MEDS: POLYETHYLENE GLYCOL 17 GM PKG PO SCH (07:54)
[2016-09-26] MEDS: COLLAGENASE OINT 30 GM TUBE TOP SCH (07:54)
[2016-09-26] MEDS: DOCUSATE SODIUM 50 MG/SENNA 8.6 MG TAB PO SCH ×2 (07:54→20:06)
[2016-09-26] MEDS: TAMSULOSIN HCL 0.4 MG CAP PO SCH (07:54)
[2016-09-26] MEDS: MAGNESIUM OXIDE 400 MG TAB PO SCH ×2 (07:54→20:06)
[2016-09-26 08:00] VITALS: BP 151/76; PULSE 74; RESP 18; TEMP 97.8; O2SAT 99
[2016-09-26 12:00] VITALS: BP 128/81; PULSE 74; RESP 20; TEMP 97.4; O2SAT 99
[2016-09-26 16:00] VITALS: BP 130/78; PULSE 76; RESP 20; TEMP 97.9; O2SAT 99
[2016-09-26] MEDS: MICAFUNGIN INJ 100 MG in SODIUM CHLORIDE 0.9% INJ 100 ML IV SCH (17:21)
[2016-09-26 20:00] VITALS: BP 133/90; PULSE 98; RESP 18; TEMP 97.4; O2SAT 97
--- NOTE | 2016-09-26 21:11 | HHI.PR ---
Subjective Remarks States he only has pain when he moves. Objective Vitals Vital Signs Date Time Temp Pulse Resp B/P Pulse Ox O2 Delivery O2 Flow Rate FiO2 09/26/16 20:00 97.4 98 18 133/90 97 09/26/16 16:00 97.9 76 20 130/78 99 09/26/16 14:30 17 09/26/16 12:00 97.4 74 20 128/81 99 09/26/16 08:00 97.8 74 18 151/76 99 09/26/16 00:00 97.6 72 20 145/84 100 I/O 09/25/16 09/25/16 09/25/16 09/26/16 09/26/16 09/26/16 07:00 15:00 23:00 07:00 15:00 23:00 Intake Total 120 ml 700 ml 340 ml 120 ml 900 ml Output Total 300 ml 450 ml 325 ml 400 ml 600 ml Balance -180 ml 250 ml 15 ml -280 ml 300 ml Intake Oral 120 ml 600 ml 240 ml 120 ml 800 ml IV Total 100 ml 100 ml 0 ml 100 ml Output Urine Total 300 ml 450 ml 325 ml 400 ml 600 ml # Bowel Movements 0 0 1 0 1 Result Diagram: 09/26/1631209/26/16312 Objective Remarks GENERAL: Well-nourished, well-developed pleasant middle-aged male patient. SKIN: Warm and dry. Dressing on scrotum and left lateral thigh not removed. HEAD: Normocephalic. EYES: No scleral icterus. No injection or drainage. NECK: Supple, trachea midline. No JVD or lymphadenopathy. CARDIOVASCULAR: Regular rate and rhythm without murmurs, gallops, or rubs. RESPIRATORY: Breath sounds equal bilaterally. No accessory muscle use. GASTROINTESTINAL: Abdomen soft, non-tender, nondistended. EXTREMITIES: No cyanosis, or edema. NEUROLOGICAL: Awake, alert, and oriented x 3. Non-focal. Normal gait. Procedures Skin graft 09/16 A/P Assessment and Plan 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 Status post I and D by Urology Dr. French on 08/31, s/p graft placement per plastics Dr. Lainez on 09/16. - continue Unasyn per ID - 4 weeks IV from initial surgery (stop date 09/28) possibly followed by 2 weeks oral abx depending on clinical response. Cont micafungin IV (Suman pickering in wound). - per Dr. Lainez graft take 100%, protect the graft with Xeroform and padded dressing for approx 7-10 more days, then leave open, OK to shower but no swimming/bathing 6-8 weeks, OK by him to DC home with outpatient f/u - pain meds with a bowel regimen. - likely DC blankenship tomorrow Macular lesions On right foot. Unsure of etiology. Not painful or itchy. May be s/t infection or thrombocytosis. Peripheral smear unremarkable. - continue to monitor. Stable. Thrombocytosis May be reactive. - follow CBC. Improved. Diabetes mellitus (new diagonsis for patient) Hemoglobin A1C 8.8%. Well controlled 09/20. - continue sliding scale and Levemir. -S/p conservation educator consult Anemia May be s/t bleeding from wound. Stable 09/18. - continue to monitor and transfuse as needed. DVT prophylaxis with Heparin. Discharge Planning Likely DC after completion of IV antibiotics Mesha Ryan MD Sep 26, 2016 21:11
[2016-09-27] VITALS: BP 129/87; PULSE 75; RESP 20; TEMP 97.2; O2SAT 99
[2016-09-27] MEDS: ACETAMINOPHEN 325 MG TAB PO SCH ×3 (03:12→15:00)
[2016-09-27] MEDS: AMPICILLIN-SULBACTAM INJ 3 GM in SODIUM CHLORIDE 0.9% INJ 100 ML IV SCH ×3 (03:12→13:23)
[2016-09-27] MEDS: INSULIN NovoLIN REGULAR SUPPLEMENTAL SCALE SQ SCH ×3 (04:26→16:00)
[2016-09-27] MEDS: HEPARIN SODIUM - SQ 10,000 UNITS/ML VIAL SQ SCH ×2 (04:26→13:25)
[2016-09-27 08:00] VITALS: BP 141/85; PULSE 77; RESP 17; TEMP 97.4; O2SAT 99
[2016-09-27] MEDS: INSULIN DETEMIR 100 UNITS/ML VIAL SQ SCH (08:26)
[2016-09-27] MEDS: POLYETHYLENE GLYCOL 17 GM PKG PO SCH (08:27)
[2016-09-27] MEDS: TAMSULOSIN HCL 0.4 MG CAP PO SCH (08:27)
[2016-09-27] MEDS: DOCUSATE SODIUM 50 MG/SENNA 8.6 MG TAB PO SCH (08:27)
[2016-09-27] MEDS: MAGNESIUM OXIDE 400 MG TAB PO SCH (08:27)
[2016-09-27] MEDS: SODIUM CHLORIDE 0.9% FLUSH 5 ML FLUSH IV FLUSH SCH (08:28)
[2016-09-27] MEDS: COLLAGENASE OINT 30 GM TUBE TOP SCH (09:00)
--- NOTE | 2016-09-27 10:42 | HHI.FF ---
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 I have seen patient Steffen Shirley on 09/27/16. My clinical findings support the need for the requested home health care services because: Limited ability to care for self Infection w/ risk of complications I certify that my clinical findings support that this patient is homebound because: Post-op weakness Avis Delgado MD Sep 27, 2016 10:42
--- NOTE | 2016-09-27 11:54 | HHI.PR ---
Subjective Remarks f/u for infection. Patient has no complaints. He is very anxious to go home. No acute events overnight. Objective Vitals Vital Signs Date Time Temp Pulse Resp B/P Pulse Ox O2 Delivery O2 Flow Rate FiO2 09/27/16 08:00 97.4 77 17 141/85 99 09/27/16 00:00 97.2 75 20 129/87 99 09/26/16 20:00 97.4 98 18 133/90 97 09/26/16 16:00 97.9 76 20 130/78 99 09/26/16 14:30 17 09/26/16 12:00 97.4 74 20 128/81 99 I/O 09/26/16 09/26/16 09/26/16 09/27/16 09/27/16 09/27/16 07:00 15:00 23:00 07:00 15:00 23:00 Intake Total 120 ml 900 ml 250 ml 440 ml Output Total 400 ml 600 ml 925 ml 200 ml Balance -280 ml 300 ml -675 ml 240 ml Intake Oral 120 ml 800 ml 150 ml 240 ml IV Total 0 ml 100 ml 100 ml 200 ml Output Urine Total 400 ml 600 ml 925 ml 200 ml # Bowel Movements 0 1 0 0 Result Diagram: 09/26/1631209/26/16312 Objective Remarks GENERAL: in NAD. CARDIOVASCULAR: Regular rate and rhythm without murmurs, gallops, or rubs. RESPIRATORY: Breath sounds equal bilaterally. No accessory muscle use. GASTROINTESTINAL: Abdomen soft, non-tender, nondistended. SKIN: right groin area bandages in placed. Procedures Skin graft 09/16 Medications and IVs Current Medications Ondansetron HCl 4 mg 4 mg ONCE ONCE IVP Last administered on 08/31/16 13:22; Start 08/31/16 at 13:15; Stop 08/31/16 at 13:16; Status DC Sodium Chloride (NS 1000 ml Inj) 1,000 ml @ 1,000 mls/hr Q1H IV Last administered on 08/31/16 13:19; Start 08/31/16 at 13:08; Stop 09/01/16 at 03:51 ; Status DC IV Flush 2 ml 2 ml UNSCH PRN IVF FLUSH AFTER USING IV ACCESS Last administered on 08/31/16 13:22; Start 08/31/16 at 13:15; Stop 08/31/16 at 21:29; Status DC Sodium Chloride 1,000 ml @ 999 mls/hr BOLUS ONCE IV Last administered on 08/31 14:24; Start 08/31/16 at 13:15; Stop 08/31/16 at 14:15; Status DC Piperacillin Sod/ Tazobactam Sod 100 ml @ 200 mls/hr ONCE ONCE IV Last administered on 08/31/16 13:22; Start 08/31/16 at 13:15; Stop 08/31/16 at 13:44 ; Status DC Vancomycin HCl/ Sodium Chloride (Vancomycin Inj/ NS 250 ml Inj) 250 ml @ 250 mls/hr ONCE ONCE IV Last administered on 08/31/16 15:19; Start 08/31/16 at 13 :15; Stop 08/31/16 at 14:14; Status DC Iohexol 75 ml 75 ml STK-MED ONCE IV Last administered on 08/31/16 13:47; Start 08/31/16 at 13:47; Stop 08/31/16 at 13:48; Status DC Sodium Chloride 1,000 ml @ 999 mls/hr BOLUS ONCE IV Last administered on 08/31 15:18; Start 08/31/16 at 14:15; Stop 08/31/16 at 15:15; Status DC Clindamycin Phosphate 900 mg/ Sodium Chloride 106 ml @ 212 mls/hr Q8H IV Last administered on 09/03/16 13:36; Start 08/31/16 at 23:00; Stop 09/03/16 at 14:05; Status DC Clindamycin Phosphate 900 mg/ Sodium Chloride 106 ml @ 212 mls/hr ONCE ONCE IV Last administered on 08/31/16 14:44; Start 08/31/16 at 14:30; Stop at 14:59; Status DC Piperacillin Sod/ Tazobactam Sod 100 ml @ 200 mls/hr Q6H IV Last administered on 09/06/16 05:52; Start 08/31/16 at 18:00; Stop 09/06/16 at 06:52; Status DC Pharmacy Profile Note (Vancomycin Consult Pharmacy) 0 ml @ 0 mls/hr UNSCH OTHER ; Start 08/31/16 at 14:30; Stop 09/03/16 at 14:05; Status DC Magnesium Oxide 800 mg 800 mg UNSCH PRN PO For Magnesium 1.2 - 1.6 mg/dL; Start 08/31/16 at 14:30; Stop 09/03/16 at 09:46; Status DC Magnesium Sulfate 4 gm/Sodium Chloride 100 ml @ 50 mls/hr UNSCH PRN IV For Magnesium 0.9 - 1.1 mg/dL; Start 08/31/16 at 14:30; Stop 09/03/16 at 09:46; Status DC Magnesium Sulfate 2 gm/Sodium Chloride 100 ml @ 50 mls/hr UNSCH PRN IV For Magnesium 1.2 - 1.6 mg/dL; Start 08/31/16 at 14:30; Stop 09/03/16 at 09:46; Status DC Potassium Chloride 100 ml @ 50 mls/hr Q2H PRN IV For Potassium 2.8 - 3.2 mEq/L ; Start 08/31/16 at 14:30; Stop 09/03/16 at 09:46; Status DC Potassium Chloride 100 ml @ 50 mls/hr Q2H PRN IV For Potassium 3.3 - 3.5 mEq/L ; Start 08/31/16 at 14:30; Stop 09/03/16 at 09:46; Status DC Potassium Chloride 100 ml @ 50 mls/hr Q2H PRN IV For Potassium 2.8 - 3.2 mEq/ L Last administered on 09/02/16 09:06; Start 08/31/16 at 14:30; Stop 09/03/16 at 09:46; Status DC Potassium Chloride (KCl 40 Meq Premix Inj) 100 ml @ 25 mls/hr UNSCH PRN IV For Potassium 3.3 - 3.5 mEq/L Last administered on 09/01/16 06:44; Start at 14:30; Stop 09/03/16 at 09:46; Status DC Potassium Chloride (KCl 40 Meq/30 ml Liq) 40 meq UNSCH PRN PO/TUBE For Potassium 3.3 - 3.5 mEq/L; Start 08/31/16 at 14:30; Stop 09/03/16 at 09:46; Status DC Potassium Chloride (KCl 40 Meq/30 ml Liq) 40 meq UNSCH PRN PO/TUBE SEE LABEL COMMENTS; Start 08/31/16 at 14:30; Stop 09/03/16 at 09:46; Status DC Potassium Phosphate (K-Phos) 2,000 mg Q4H PRN PO For Phosphorus < 2.5 mg/dL; Start 08/31/16 at 14:30; Stop 09/03/16 at 09:46; Status DC Potassium Phosphate 2000 mg 2,000 mg UNSCH PRN PO/TUBE SEE LABEL COMMENTS; Start 08/31/16 at 14:30; Stop 09/03/16 at 09:46; Status DC Potassium Phosphate 30 mmol/ Sodium Chloride 260 ml @ 42 mls/hr UNSCH PRN IV SEE LABEL COMMENTS; Start 08/31/16 at 14:30; Stop 09/03/16 at 09:47; Status DC Sodium Phosphate/ Sodium Chloride (Sodium Phosphate Inj/NS 250 ml Inj) 250 ml @ 42 mls/hr UNSCH PRN IV For Phosphorus < 2.5 mg/dL; Start 08/31/16 at 14:30; Stop 09/03/16 at 09:47; Status DC Dextrose (D50w (Vial) Inj) 25 ml UNSCH PRN IV PUSH HYPOGLYCEMIA-SEE COMMENTS; Start 08/31/16 at 14:30; Stop 09/08/16 at 10:27; Status DC Insulin Human Regular (NovoLIN R SUPPLEMENTAL SCALE) 1 Q4HR SQ Last administered on 09/07/16 20:58; Start 08/31/16 at 16:00; Stop 09/08/16 at 10:10; Status DC IV Flush (NS Flush) 2 ml UNSCH PRN IV FLUSH FLUSH AFTER USING IV ACCESS Last administered on 09/11/16 15:19; Start 08/31/16 at 14:30 IV Flush (NS Flush) 2 ml BID IV FLUSH Last administered on 09/27/16 08:28; Start 08/31/16 at 21:00 Hydromorphone HCl (Dilaudid Pf Inj) 0.5 mg Q3H PRN IV PAIN 6-10 or not taking po; Start 08/31/16 at 15:00; Stop 08/31/16 at 22:15; Status DC Pantoprazole Sodium (Protonix Inj) 40 mg DAILY IV Last administered on 08:47; Start 09/01/16 at 09:00; Stop 09/02/16 at 07:39; Status DC Ondansetron HCl (Zofran Inj) 4 mg Q6H PRN IV NAUSEA OR VOMITING Last administered on 09/24/16 20:29; Start 08/31/16 at 18:00 Senna/Docusate Sodium (Saima-Colace) 2 tab BID PO Last administered on 08:27; Start 08/31/16 at 21:00 Albuterol/ Ipratropium (Duoneb Neb) 1 ampule Q2HR NEB PRN INH WHEEZING; Start 08/31/16 at 14:30 Miscellaneous Information 1 Q361D XX ; Start 08/31/16 at 14:30 Chlorhexidine Gluconate (Chlorhexidine 2% Cloth) Taper DAILY@04 TOP Last administered on 09/02/16 03:02; Start 09/01/16 at 04:00; Stop 09/17/16 at 09:43; Status DC Chlorhexidine Gluconate 3 pack 3 pack UNSCH PRN TOP HYGIENIC CARE; Start at 14:30; Stop 09/17/16 at 09:43; Status DC Lactated Ringer's 1,000 ml @ 150 mls/hr Q6H40M IV Last administered on 04:35; Start 08/31/16 at 14:26; Stop 09/02/16 at 07:39; Status DC Vancomycin HCl/ Sodium Chloride (Vancomycin Inj/ NS 250 ml Inj) 257.5 ml @ 250 mls/hr Q12H IV Last administered on 09/01/16 04:35; Start 09/01/16 at 03:00; Stop 09/01/16 at 11:00; Status DC Miscellaneous Information SPECIFIC LAB TO BE DRAWN:VANCOMYCIN TROUGH DATE TO... ONCE ONCE XX Last administered on 09/02/16 14:42; Start 09/02/16 at 14:45; Stop 09/02/16 at 14:46; Status DC Midazolam HCl (Versed Inj) 2 mg ONCE ONCE IV PUSH Last administered on 17:00; Start 08/31/16 at 17:15; Stop 08/31/16 at 17:19; Status DC Fentanyl Citrate (fentaNYL INJ) 100 mcg ONCE ONCE IV PUSH Last administered on 2/28/17at 17:15; Start 08/31/16 at 17:15; Stop 08/31/16 at 17:18; Status DC Midazolam HCl 5 mg 5 mg STK-MED ONCE .ROUTE ; Start 08/31/16 at 17:17; Stop at 17:18; Status DC Norepinephrine Bitartrate (Levophed-Dextrose Drip) 250 ml @ As Directed STK- MED ONCE IV ; Start 08/31/16 at 18:15; Stop 08/31/16 at 18:16; Status DC Epinephrine HCl (EPINEPHrine (1:10,000) INJ) 1 mg STK-MED ONCE .ROUTE ; Start at 19:02; Stop 08/31/16 at 19:03; Status DC Atropine Sulfate (Atropine Inj) 1 mg STK-MED ONCE .ROUTE ; Start 08/31/16 at 19: 02; Stop 08/31/16 at 19:03; Status DC Lidocaine HCl (Xylocaine 2% Inj) 100 mg STK-MED ONCE .ROUTE ; Start 08/31/16 at 19:02; Stop 08/31/16 at 19:03; Status DC Influenza Virus Vaccine (Flu (Quadrivalent) Vaccine Inj) 0.5 ml ONCE ONCE IM ; Start 09/01/16 at 10:00; Stop 09/01/16 at 10:01; Status DC Fentanyl Citrate (fentaNYL INJ) 250 mcg STK-MED ONCE .ROUTE ; Start 08/31/16 at 20:26; Stop 08/31/16 at 20:27; Status DC Tamsulosin HCl (Flomax) 0.4 mg DAILY PO Last administered on 09/27/16 08:27; Start 09/01/16 at 09:00 Morphine Sulfate (Morphine 1 Mg/ ml GATE ATTENDANT) 30 mg UNSCH IV Last administered on 11:28; Start 08/31/16 at 22:15; Stop 09/02/16 at 07:40; Status DC GATE ATTENDANT Dosage Infused (Pha) 1 Q8HR .XX Last administered on 09/02/16 04:44; Start 09/01/16 at 06:00; Stop 09/02/16 at 07:40; Status DC Naloxone HCl (Narcan Inj) 0.4 mg UNSCH PRN IV RESPIRATORY RATE LESS THAN 10; Start 08/31/16 at 22:15 Morphine Sulfate (Morphine 1 Mg/ ml GATE ATTENDANT) 30 mg UNSCH IV ; Start 08/31/16 at 22: 15; Stop 08/31/16 at 22:15; Status DC GATE ATTENDANT Dosage Infused (Pha) 1 Q8HR .XX ; Start 09/01/16 at 06:00; Stop 09/01/16 at 06 :00; Status DC Miscellaneous Information ALL NURSING DEPARTME... UNSCH PRN XX SEE LABEL COMMENTS; Start 08/31/16 at 22:30; Stop 09/01/16 at 22:29; Status DC Sodium Chloride 1,000 ml @ 999 mls/hr BOLUS ONCE IV Last administered on 02:08; Start 09/01/16 at 01:45; Stop 09/01/16 at 02:45; Status DC Sodium Chloride 1,000 ml @ 999 mls/hr BOLUS ONCE IV Last administered on 02:08; Start 09/01/16 at 01:45; Stop 09/01/16 at 02:45; Status DC Dobutamine HCl/ Dextrose 250 ml @ 12.405 mls/ hr [id number] IV Last administered on 09/01/16 02:14; Start 09/01/16 at 01:44; Stop 09/02/16 at 07:40; Status DC Sodium Chloride 1,000 ml @ 999 mls/hr Q1H1M IV ; Start 09/01/16 at 02:15; Stop 09/01/16 at 04:15; Status DC Norepinephrine Bitartrate 250 ml @ 0 mls/hr TITRATE IV ; Start 09/01/16 at 02:15 ; Stop 09/02/16 at 07:40; Status DC Sodium Chloride 1,999 ml @ 0 mls/hr BOLUS ONCE IV ; Start 09/01/16 at 03:45; Stop 09/01/16 at 03:46; Status Cancel Sodium Chloride 1,999 ml @ 0 mls/hr BOLUS ONCE IV ; Start 09/01/16 at 04:00; Stop 09/01/16 at 04:01; Status Cancel Sodium Chloride 1,999 ml @ 0 mls/hr BOLUS ONCE IV Last administered on 04:09; Start 09/01/16 at 00:00; Stop 09/01/16 at 03:47; Status DC Sodium Chloride 1,999 ml @ 0 mls/hr BOLUS ONCE IV ; Start 09/01/16 at 00:00; Stop 09/01/16 at 00:01; Status Cancel Vancomycin HCl/ Sodium Chloride (Vancomycin Inj/ NS 500 ml Inj) 515 ml @ 257.5 mls/ hr Q12H IV Last administered on 09/03/16 03:24; Start 09/01/16 at 15:00; Stop 09/03/16 at 14:06; Status DC Propofol (Diprivan 200 Mg/20 ml Inj) 200 mg STK-MED ONCE IV ; Start 08/31/16 at 12:00; Stop 09/01/16 at 12:31; Status DC Ondansetron HCl (Zofran Inj) 4 mg STK-MED ONCE IV PUSH ; Start 08/31/16 at 12:00 ; Stop 09/01/16 at 12:31; Status DC Phenylephrine HCl (Neosynephrine/ NS 1000 Mcg/10ml Syr) 1,000 mcg STK-MED ONCE IV ; Start 08/31/16 at 12:00; Stop 09/01/16 at 12:31; Status DC Heparin Sodium (Porcine) (Heparin Inj) 5,000 units Q8HR SQ Last administered on 09/27/16 04:26; Start 09/02/16 at 14:00 Acetaminophen (Tylenol) 650 mg Q6H PO Last administered on 09/27/16 08:27; Start 09/02/16 at 09:00 Hydromorphone HCl (Dilaudid Pf Inj) 0.5 mg Q4H PRN IV PUSH Breakthrough pain Last administered on 09/24/16 17:48; Start 09/02/16 at 07:45 Oxycodone HCl (Roxicodone) 5 mg Q4H PRN PO pain 1-5 Last administered on 01:42; Start 09/02/16 at 07:45 Miscellaneous Information SPECIFIC LAB TO BE LUCIA... ONCE ONCE XX ; Start at 02:45; Stop 09/04/16 at 02:46; Status DC Potassium Chloride (KCl) 40 meq ONCE ONCE PO Last administered on 09/03/16 11: 06; Start 09/03/16 at 09:45; Stop 09/03/16 at 09:46; Status DC Lactulose (Lactulose Liq) 30 ml ONCE ONCE PO Last administered on 09/03/16 11: 06; Start 09/03/16 at 11:00; Stop 09/03/16 at 11:01; Status DC Potassium Chloride 20 meq 20 meq Q2HR PO Last administered on 09/05/16 16:23; Start 09/05/16 at 10:00; Stop 09/05/16 at 16:30; Status DC Ampicillin Sodium/ Sulbactam Sodium/ Sodium Chloride (Unasyn Inj/NS Inj) 100 ml @ 200 mls/hr Q6H IV Last administered on 09/27/16 08:26; Start 09/06/16 at 08: 00 Potassium Chloride (KCl) 40 meq ONCE ONCE PO Last administered on 09/06/16 10: 44; Start 09/06/16 at 09:15; Stop 09/06/16 at 09:21; Status DC Magnesium Oxide (Mag-Ox) 400 mg Q12HR PO Last administered on 09/27/16 08:27; Start 09/06/16 at 09:15 Insulin Detemir (Levemir Inj) 10 units BID SQ Last administered on 09/09/16 09: 05; Start 09/08/16 at 15:00; Stop 09/09/16 at 11:05; Status DC Insulin Human Regular (NovoLIN R SUPPLEMENTAL SCALE) 1 ACHS SLIDING SCALE SQ Last administered on 09/27/16 11:00; Start 09/08/16 at 11:00 Dextrose (D50w (Vial) Inj) 25 ml UNSCH PRN IV PUSH HYPOGLYCEMIA - SEE COMMENTS ; Start 09/08/16 at 10:30 Glucagon (Glucagon Inj) 1 mg UNSCH PRN OTHER HYPOGLYCEMIA-SEE COMMENTS; Start 09/08/16 at 10:30 Collagenase (Santyl Oint) 1 applic DAILY TOP Last administered on 09/13/16 09: 00; Start 09/09/16 at 09:00 Insulin Detemir (Levemir Inj) 8 units BID SQ Last administered on 09/27/16 08: 26; Start 09/09/16 at 21:00 Fluconazole (Diflucan) 100 mg DAILY PO Last administered on 09/15/16 09:17; Start 09/12/16 at 11:45; Stop 09/15/16 at 18:44; Status DC Lorazepam 0.5 mg 0.5 mg Q6H PRN PO anxiety; Start 09/15/16 at 09:45; Stop 09/21 at 11:05; Status DC Micafungin Sodium/ Sodium Chloride (Mycamine Inj/NS Inj) 100 ml @ 100 mls/hr Q24H IV Last administered on 09/26/16 17:21; Start 09/15/16 at 18:45 Bupivacaine HCl (Marcaine Pf 0.5% Inj) 30 ml STK-MED ONCE .ROUTE ; Start at 16:33; Stop 09/16/16 at 16:34; Status DC Bupivacaine HCl/ Epinephrine Bitart (Sensorcaine-Epinephrine Pf 0.5% Inj) 30 ml STK-MED ONCE .ROUTE Last administered on 09/16/16 20:31; Start 09/16/16 at 16: 33; Stop 09/16/16 at 16:34; Status DC Lidocaine/ Epinephrine (Xylocaine-Epi 1%-1:100,000 Inj) 50 ml STK-MED ONCE .ROUTE ; Start 09/16/16 at 16:34; Stop 09/16/16 at 16:35; Status DC Mineral Oil (Muri-Lube Oil) 10 ml STK-MED ONCE .ROUTE Last administered on 09/16 19:40; Start 09/16/16 at 16:34; Stop 09/16/16 at 16:35; Status DC Bacitracin (Baciguent Oint) 15 applic STK-MED ONCE .ROUTE ; Start 09/16/16 at 16 :34; Stop 09/16/16 at 16:35; Status DC Fentanyl Citrate (fentaNYL INJ) 250 mcg STK-MED ONCE .ROUTE ; Start 09/16/16 at 21:02; Stop 09/16/16 at 21:03; Status DC Morphine Sulfate (Morphine Inj) 4 mg STK-MED ONCE .ROUTE Last administered on 21:16; Start 09/16/16 at 21:16; Stop 09/16/16 at 21:17; Status DC Morphine Sulfate (Morphine Inj) 4 mg STK-MED ONCE .ROUTE Last administered on 21:56; Start 09/16/16 at 21:56; Stop 09/16/16 at 21:57; Status DC Oxycodone HCl (Roxicodone) 10 mg Q4H PRN PO pain 6-10 Last administered on 09/18 05:38; Start 09/17/16 at 09:45; Stop 09/18/16 at 10:04; Status DC Propofol (Diprivan 200 Mg/20 ml Inj) 200 mg STK-MED ONCE IV ; Start 09/16/16 at 12:00; Stop 09/17/16 at 10:25; Status DC Ondansetron HCl 4 mg 4 mg STK-MED ONCE IV PUSH ; Start 09/16/16 at 12:00; Stop 09/17/16 at 10:25; Status DC Lactated Ringer's (Lr 1000 ml Inj) 1,000 ml @ As Directed STK-MED ONCE IV ; Start 09/16/16 at 12:00; Stop 09/17/16 at 10:25; Status DC Neostigmine Methylsulfate (Prostigmin Inj) 3 mg STK-MED ONCE IV ; Start at 12:00; Stop 09/17/16 at 10:25; Status DC Oxycodone HCl (Roxicodone) 20 mg Q4H PRN PO pain 6-10 Last administered on 09/19 02:43; Start 09/18/16 at 13:45; Stop 09/19/16 at 12:11; Status DC Oxycodone HCl (Roxicodone) 10 mg Q4H PRN PO pain 6-10 Last administered on 09/24 17:28; Start 09/19/16 at 13:45 Polyethylene Glycol (Miralax) 17 gm DAILY PO Last administered on 09/20/16 08: 36; Start 09/19/16 at 13:00 A/P Assessment and Plan 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 Status post I and D by Urology Dr. French on 08/31, s/p graft placement per plastics Dr. Lainez on 09/16. - continue Unasyn per ID - 4 weeks IV from initial surgery (stop date 09/28) possibly followed by 2 weeks oral abx depending on clinical response. Cont micafungin IV (C glbratra in wound). - per Dr. Lainez graft take 100%, protect the graft with Xeroform and padded dressing for approx 10 more days, then leave open, OK to shower but no swimming/ bathing 6-8 weeks, OK by him to DC home with outpatient f/u in 4-6 weeks. - pain meds with a bowel regimen. - likely DC blankenship tomorrow Macular lesions On right foot. Unsure of etiology. Not painful or itchy. May be s/t infection or thrombocytosis. Peripheral smear unremarkable. - continue to monitor. Stable. Thrombocytosis -RESOLVED. -May be reactive. -follow CBC. Improved. Diabetes mellitus (new diagonsis for patient) -Hemoglobin A1C 8.8%. Well controlled 09/20. - continue sliding scale and Levemir. -S/p hematology nurse educator consult Anemia May be s/t bleeding from wound. Stable 09/18. - continue to monitor and transfuse as needed. Discharge Planning Last day of antibiotic's tomorrow. Patient can be discharged after last dose of antibiotics. Dealt with caseworker intake Namrata in regards to home health. Avis Delgado MD Sep 27, 2016 11:54
[2016-09-27 12:00] VITALS: BP 125/79; PULSE 75; RESP 17; TEMP 97; O2SAT 96
[2016-09-27] MEDS: MICAFUNGIN INJ 100 MG in SODIUM CHLORIDE 0.9% INJ 100 ML IV SCH (13:29)
--- NOTE | 2016-09-27 13:58 | HHI.IDPN ---
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 Overnight events reviewed. No fever No rash No diarrhea Antibiotics Unasyn IV Micafungin IV Lines Line sites with no e.o infection Past Medical History reviewed Allergies: Coded Allergies: No Known Allergies (Unverified , 08/31/16) Objective . Vital Signs Date Time Temp Pulse Resp B/P Pulse Ox O2 Delivery O2 Flow Rate FiO2 09/27/16 12:00 97.0 75 17 125/79 96 09/27/16 08:00 97.4 77 17 141/85 99 09/27/16 00:00 97.2 75 20 129/87 99 09/26/16 20:00 97.4 98 18 133/90 97 09/26/16 16:00 97.9 76 20 130/78 99 09/26/16 14:30 17 09/26/16 09/26/16 09/27/16 15:00 23:00 07:00 Intake Total 900 ml 250 ml 440 ml Output Total 600 ml 925 ml 200 ml Balance 300 ml -675 ml 240 ml Intake Oral 800 ml 150 ml 240 ml IV Total 100 ml 100 ml 200 ml Output Urine Total 600 ml 925 ml 200 ml # Bowel Movements 1 0 0 . Laboratory Tests Test 09/26/16 03:13 White Blood Count 6.9 TH/MM3 Red Blood Count 3.64 MIL/MM3 Hemoglobin 11.4 GM/DL Hematocrit 33.7 % Mean Corpuscular Volume 92.4 FL Mean Corpuscular Hemoglobin 31.4 PG Mean Corpuscular Hemoglobin 34.0 % Concent Red Cell Distribution Width 14.0 % Platelet Count 276 TH/MM3 Mean Platelet Volume 8.5 FL Neutrophils (%) (Auto) 54.1 % Lymphocytes (%) (Auto) 35.1 % Monocytes (%) (Auto) 6.0 % Eosinophils (%) (Auto) 3.6 % Basophils (%) (Auto) 1.2 % Neutrophils # (Auto) 3.8 TH/MM3 Lymphocytes # (Auto) 2.4 TH/MM3 Monocytes # (Auto) 0.4 TH/MM3 Eosinophils # (Auto) 0.3 TH/MM3 Basophils # (Auto) 0.1 TH/MM3 CBC Comment DIFF FINAL Differential Comment Laboratory Tests Test 09/26/16 03:13 Sodium Level 138 MEQ/L Potassium Level 3.8 MEQ/L Chloride Level 104 MEQ/L Carbon Dioxide Level 25.9 MEQ/L Anion Gap 8 MEQ/L Blood Urea Nitrogen 18 MG/DL Creatinine 0.99 MG/DL Estimat Glomerular Filtration 80 ML/MIN Rate Random Glucose 153 MG/DL Calcium Level 9.0 MG/DL Imaging Last Impressions Abdomen/Pelvis CT 08/31/16 1308 Signed Impressions: Service Date/Time: Wednesday, August 31, 2016 13:36 - CONCLUSION: Significant air within the scrotum with soft tissue inflammation and skin thickening. Charlie's necrotizing fasciitis can have this appearance. I do not see any evidence of bowel or significant inguinal hernia. Triston Euceda MD Chest X-Ray 08/31/16 0000 Signed Impressions: Service Date/Time: Wednesday, August 31, 2016 18:32 - CONCLUSION: Left internal jugular central venous catheter in good position. No evidence of pneumothorax. Felix Caballero MD Physical Exam GENERAL: This is a well-nourished, well-developed patient, in no apparent distress. SKIN: No rashes, ecchymoses or lesions. Cool and dry. HEAD: Atraumatic. Normocephalic. No temporal or scalp tenderness. EYES: Pupils equal round and reactive. Extraocular motions intact. No scleral icterus. No injection or drainage. ENT: Nose without bleeding, purulent drainage or septal hematoma. Throat without erythema, tonsillar hypertrophy or exudate. Uvula midline. Airway patent. NECK: Trachea midline. Supple, nontender, no meningeal signs. CARDIOVASCULAR: Heart sounds audible. No murmur appreciated. RESPIRATORY: Clear to auscultation. Breath sounds equal bilaterally. GASTROINTESTINAL: Abdomen soft, non-tender, nondistended. No hepato-splenomegaly , or palpable masses. No guarding. MUSCULOSKELETAL: Extremities without clubbing, cyanosis, or edema. No joint tenderness, effusion, or edema noted. No calf tenderness. Negative Homans sign bilaterally. NEUROLOGICAL: Awake and alert. Grossly nonfocal. Genitourinary examination: deferred Psych cooperative IV line sites with no evidence of infection. Assessment & Plan Remarks Sepsis present on admission controlled now. Source likely Charlie's gangrene Now with yeast infection ? secondary over growth while on antibiotics. New onset diabetes mellitus Recommendations DC Unasyn IV DC Micafungin IV Ok to DC home. No antibiotics on discharge. Wound care supplies to be provided. Continue local wound care. Follow up with in clinic per instructions. Will sign off please call back if any change in clinical condition or questions. Kate Thompson MD Sep 27, 2016 13:58 Kate Thompson MD Sep 27, 2016 13:58
[2016-09-27] MEDS ORDERED: COLL30T TOP (14:43)
[2016-09-27] MEDS ORDERED: NOVORP2 SQ (14:43)
[2016-09-27] MEDS ORDERED: MAGN400T3 PO (14:43)
[2016-09-27] MEDS ORDERED: LEVEMIR SQ (14:43)
[2016-09-27] MEDS ORDERED: SENN1TAB PO (14:43)
[2016-09-27] MEDS ORDERED: TAMS5CAP PO (14:43)
[2016-09-27] MEDS ORDERED: INSU-118 (14:48)
[2016-09-27] MEDS ORDERED: BLOOD GLUCOSE M1 KIT (14:50)
--- NOTE | 2016-09-27 14:55 | HHI.DS ---
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 He states it is painful and red. He has not had anything draining from it. In the emergency department they did a CT abdomen and pelvis with IV contrast which demonstrated significant soft tissue infection tracking up the inguinal canal, concern for necrotizing soft tissue infection. He was tachycardic and hypotensive initially requiring IV fluid resuscitation. He was given vancomycin, Zosyn, clindamycin. Urology and general surgery consult addition he is emergently transferred to [facility] for operative debridement of probable Charlie's gangrene. When I evaluated the patient he states his pain is moderately controlled and 3 out of 10 arrest with 8 of 10 with activity. He denies chest pain shortness of breath. He has been nothing by mouth for greater than 24 hours. He has no history of problems under anesthesia. He endorses poor dentition, but states that none of these teeth are loose. He can walk up 2 flights of stairs without being winded. CBC/BMP: 09/26/16 0313 09/26/16 0313 Significant Findings Laboratory Tests Test 09/26/16 03:13 Red Blood Count 3.64 MIL/MM3 (4.50-5.90) Hemoglobin 11.4 GM/DL (13.0-17.0) Hematocrit 33.7 % (39.0-51.0) Estimat Glomerular Filtration 80 ML/MIN (>89) Rate Random Glucose 153 MG/DL (74-106) Imaging Last Impressions Abdomen/Pelvis CT 08/31/16 1308 Signed Impressions: Service Date/Time: Wednesday, August 31, 2016 13:36 - CONCLUSION: Significant air within the scrotum with soft tissue inflammation and skin thickening. Charlie's necrotizing fasciitis can have this appearance. I do not see any evidence of bowel or significant inguinal hernia. Triston Euceda MD Chest X-Ray 08/31/16 0000 Signed Impressions: Service Date/Time: Wednesday, August 31, 2016 18:32 - CONCLUSION: Left internal jugular central venous catheter in good position. No evidence of pneumothorax. Felix Caballero MD PE at Discharge GENERAL: in NAD. CARDIOVASCULAR: Regular rate and rhythm without murmurs, gallops, or rubs. RESPIRATORY: Breath sounds equal bilaterally. No accessory muscle use. GASTROINTESTINAL: Abdomen soft, non-tender, nondistended. SKIN: right groin area bandages in placed. Hospital Course 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 Status post I and D by Urology Dr. French on 08/31, s/p graft placement per plastics Dr. Lainez on 09/16. - patient put on Unasyn per ID for 4 weeks IV from initial surgery (stop date ) in which he completed antibiotics course while hospitalized. He was also but on micafungin IV (C glbratra in wound) in which treatment completed while hospitalized.. - per Dr. Lainez unpon discharge stated graft take 100%, protect the graft with Xeroform and padded dressing for approx 10 more days, then leave open, OK to shower but no swimming/bathing 6-8 weeks, OK by him to DC home with outpatient f/u in 4-6 weeks. - pain meds with a bowel regimen. Macular lesions On right foot. Unsure of etiology. Not painful or itchy. May be s/t infection or thrombocytosis. Peripheral smear unremarkable. - continue to monitor. Stable. Thrombocytosis -RESOLVED with treatment with infection. -May be reactive. -follow CBC. Improved. Diabetes mellitus (new diagnosis for patient) -Hemoglobin A1C 8.8%. Well controlled 09/20. - was put on sliding scale and Levemir. -S/p certified breastfeeding educator consult Anemia May be s/t bleeding from wound. Stable 09/18. - continue to monitor and transfuse as needed Pt Condition on Discharge: Good Discharge Disposition: Discharge Home Discharge Time: > 30 minutes Discharge Instructions DIET: Follow Instructions for: Diabetic Diet Activities you can perform: See Additionl Instruction Other Activity Instructions: To protect the graft with Xeroform and padded dressing daily for 10 days. Then ok to leave open. OK to shower - avoid rubbing the graft site. No swimming or [place] water 6-8 weeks and after that short periods in water to avoid damaging the thin skin - it will be numb to touch for long time and the feeling may not recover as good as before. Follow up Referrals: PCP Follow-up - 1 Week Plastic Surgery - 4 Weeks with [facility] New Medications: Blood Glucose Monitoring W/Device (Blood Glucose Monitoring W/Device) 1 Kit Kit 1 KIT .ROUTE DIRECTED Blood Sugar Management #1 Ref 0 KIT [employer] Insulin Syringes/ 31G X 5/16" 0.5 ml ([employer] Insulin Syringes/ 31G X 5/ 16" 0.5 ml) 1 Mis Mis 1 BOX .ROUTE DIRECTED Blood Sugar Management #1 Ref 0 BOX Collagenase (Santyl) 250 Unit/Gm Oin 1 APPLIC TOP DAILY infected wound #1 Ref 0 TUBE Insulin Detemir Inj (Levemir Inj) 1,000 unit/ 10 ML Vial 8 UNITS SQ BID diabetes #1 Ref 1 INJECTION Insulin Human Regular Inj (Novolin R Inj) 1,000 Unit/10 Ml Vial 1 UNITS SQ ACHS SLIDING SCALE diabetes #1 Ref 1 INJECTION Magnesium Oxide (Magnesium Oxide) 241.3 Mg Tab 400 MG PO Q12HR low magnesium level #60 Ref 0 TAB Sennosides-Docusate Sodium (Senna Plus 8.6-50 mg) 1 Tab Tab 2 TAB PO BID prevent constipatiob=n Days 14 Ref 0 TAB Tamsulosin (Flomax) 0.4 Mg Cap 0.4 MG PO DAILY urinary retention #30 Ref 0 CAP Avis Delgado MD Sep 27, 2016 14:55
--- NOTE | 2016-09-27 14:55 | HHI.DCPOC ---
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 Avoid second hand smoke Call the 24-hour hour crisis hotline for domestic abuse at Avis Delgado MD Sep 27, 2016 14:55
[2016-09-27 16:00] VITALS: BP_SYST 135; BP_SYST 167; BP_DIAS 85; BP_DIAS 92; PULSE 75; PULSE 82; RESP 16; RESP 17; TEMP 96.9; TEMP 97.6; O2SAT 98; O2SAT 99
== END 2016-09-27 18:17 | disposition home or self-care (01) | DRG 853 ==
LOC: PHED 12:44 → PHEDA 14:27 → N03A 16:54 → N07A 09-02 14:23
PROVIDERS: ADMIT Family Medicine; ATTEND Family Medicine
PROC: 03HY32Z Insertion of Monitoring Device into Upper Artery, Percutaneous Approach (ICD-10-PCS; 2016-08-31)
PROC: 0VJ8XZZ Inspection of Scrotum and Tunica Vaginalis, External Approach (ICD-10-PCS; 2016-08-31)
PROC: 0H9AXZX Drainage of Inguinal Skin, External Approach, Diagnostic (ICD-10-PCS; 2016-08-31)
PROC: 4A133B1 Monitoring of Arterial Pressure, Peripheral, Percutaneous Approach (ICD-10-PCS; 2016-08-31)
PROC: 4A133J1 Monitoring of Arterial Pulse, Peripheral, Percutaneous Approach (ICD-10-PCS; 2016-08-31)
PROC: 05HN33Z Insertion of Infusion Device into Left Internal Jugular Vein, Percutaneous Approach (ICD-10-PCS; 2016-08-31)
PROC: 0HBAXZZ Excision of Inguinal Skin, External Approach (ICD-10-PCS; principal; 2016-08-31 19:38)
PROC: 0HRAX74 Replacement of Inguinal Skin with Autologous Tissue Substitute, Partial Thickness, External Approach (ICD-10-PCS; 2016-09-20)
PROC: 0HBJXZZ Excision of Left Upper Leg Skin, External Approach (ICD-10-PCS; 2016-09-20)
DX: A41.9 Sepsis, unspecified organism (principal); M72.6 Necrotizing fasciitis; E87.2 Acidosis; N17.9 Acute kidney failure, unspecified; I95.9 Hypotension, unspecified; E83.51 Hypocalcemia; J98.11 Atelectasis; N49.3 Fournier gangrene; N50.89 Other specified disorders of the male genital organs; R11.2 Nausea with vomiting, unspecified; Z87.891 Personal history of nicotine dependence; Z83.3 Family history of diabetes mellitus; R65.20 Severe sepsis without septic shock; E11.9 Type 2 diabetes mellitus without complications; E87.6 Hypokalemia; K59.00 Constipation, unspecified; F41.9 Anxiety disorder, unspecified; D64.9 Anemia, unspecified; D75.89 Other specified diseases of blood and blood-forming organs
CPT/HCPCS: 36556; 71010; 74177; 76937; 80048; 80053; 80202; 81001; 82550; 82565; 82948; 83036; 83605; 83735; 84155; 85025; 85027; 85060; 85610; 85730; 86403; 86850; 86900; 86901; 87015; 87040; 87070; 87102; 87106; 87116; 87205; 87206; 87641; 93005; 94150; 94640; 94667; 94668; 96365; 96375; C9113; J0171; J0295; J0461; J1170; J1250; J1644; J2248; J2250; J2270; J2370; J2405; J2543; J2710; J3010; J3370; J3480; J7030; J7040; J7050; J7120; Q9967